=== PATIENT | male | born 1935 | race African-American/Black ===

== ENCOUNTER 2017-04-17 06:17 | Inpatient (IN) | payer OTHER, MEDICARE ==
[~2017-04-17] VITALS: Ht 172.7 cm; Wt 100.0 kg
[2017-04-17] VITALS (12 sets, daily range): BP systolic 121–174; BP diastolic 67–108; PULSE 77–100; RESP 18–20; TEMP 97.6–97.9; O2SAT 90–98
[~2017-04-17 06:17] MED LIST: AMLO10 PO; ASPI1TAB69 PO; CARV3.125 PO; FORM20NE INH; GLIP5TAB8 PO; LATA0.002 EACH EYE; LEVO25TA4 PO; LISI10TA PO; MOME1AER2 INH; PRAV40TA2 PO; THEO300T12 PO; VENTAER INH; VITA10002 PO
[2017-04-17] MEDS ORDERED: ALBU0.63 NEB (06:49)
[2017-04-17] MEDS ORDERED: TRAZ50TA12 PO (06:55)
[2017-04-17] MEDS ORDERED: ALLO100T PO (06:55)
[2017-04-17] MEDS ORDERED: BRIM0.2S4 EACH EYE (06:55)
[2017-04-17] MEDS ORDERED: LIDOCAINE 1%/EPINEPHrine 1:100,000 SOLN 20 ML VIAL ONE (07:44)
[2017-04-17] MEDS ORDERED: MIDAZOLAM HCL 2 MG/2 ML VIAL ONE (07:54)
--- NOTE | 2017-04-17 08:44 | PD.RAD ---
Post CT Procedure Prog Note Pre Procedure Diagnosis: (1) Lung mass Post Procedure Diagnosis: (1) Lung mass Procedure Date: Apr 17, 2017 Supervising Radiologist: Luis Case Anesthesia: Conscious Sedation Plan of Activity Patient to Unit: [facility] Patient Condition: Good See PACS Report for procedural detail/treatment Luis Case MD Apr 17, 2017 08:44
--- NOTE | 2017-04-17 09:05 | RADRPT ---
EXAM DATE/TIME: 04/17/2017 08:17 [facility] COMPARISON: CHEST EXPIRATION ONLY, April 17, 2017, 8:50. INDICATIONS : History of PET positive left upper lobe lung mass with reportedly nondiagnostic biopsy at [facility]. Therefore, patient presents for repeat biopsy attempt. SEDATION TIME: 30 minutes BIOPSY SITE: Left lung MEDICATION(S): 1.) 2.5 mg midazolam (Versed) IV 2.) 125 mcg fentanyl (Sublimaze) IV DEVICE(S): 1.) 18 gauge Soto blunt needle 2.) 20 gauge Temno core biopsy needle MEDICAL HISTORY : Carcinoma, prostate. Hypertension. Emphysema. SURGICAL HISTORY : None. ENCOUNTER: Initial ACUITY: 1 day PAIN SCORE: 0/10 LOCATION: Left chest A total of five core specimen(s) were obtained and sent to the laboratory for pathologic evaluation. PROCEDURE: 1. CT guided lung biopsy. 2. Conscious sedation with continuous EKG and oximetry monitoring. 3. EKG and oximetry remained stable throughout the procedure. Prior to the procedure informed consent was obtained. Any appropriate prior imaging studies were rev iewed. Using automated exposure control and adjustment of the mA and/or kV according to patient size, radiation dose was kept as low as reasonably achievable to obtain optimal diagnostic quality images. DICOM format image data is available electronically for review and comparison. The site was prepped in a sterile fashion. Full sterile technique was used, including cap, mask, lamar rile gloves and gown and a large sterile sheet. Hand hygiene and 2% chlorhexidine and/or betadine/al cohol prep was utilized per protocol for cutaneous antisepsis. The skin and subcutaneous tissues wer e infiltrated with local anesthetic solution. With CT guidance the previously identified target was localized. Biopsy was performed using the [facility] ribed needle as above. In total, five 20 gauge core biopsies were obtained. Adequate hemostasis was o btained with compression at the puncture site. Follow-up CT scan reveals no pneumothorax. However, moderate airspace blood proximal were noted. Ther efore, patient was positioned with left side down for postprocedure recovery. Chest radiographs will be obtained. Conscious sedation was performed with the prescribed dosages and duration as above in the presence of an independent trained radiology nurse to assist in the monitoring of the patient. EKG and oximetry remained stable throughout the procedure. The patient tolerated the procedure well and there were no complications. The patient was sent to Radiology Outpatient Unit in stable condition. CONCLUSION: Uncomplicated CT guided biopsy. Luis Case MD on April 17, 2017 at 9:01 Board Certified Radiologist. This report was verified electronically.
--- NOTE | 2017-04-17 09:06 | RADRPT ---
EXAM DATE/TIME: 04/17/2017 08:50 [facility] COMPARISON: No previous studies available for comparison. INDICATIONS : Left lung biopsy. MEDICAL HISTORY : Hypertension. Chronic obstructive pulmonary disease. Carcinoma, prostate SURGICAL HISTORY : None. ENCOUNTER: Initial ACUITY: 1 day PAIN SCORE: 4/10 LOCATION: Left upper chest FINDINGS: A single frontal expiratory view of the chest was performed. Mild airspace consolidation in the left upper lobe consistent with postprocedural blood products. No evidence of pneumothorax. Mediastinal s tructures are in the midline. The cardio-mediastinal contours and bronchopulmonary markings are unremarkable for an expiratory exam . Osseous structures are intact. CONCLUSION: 1. No significant pneumothorax status post left upper lobe lung mass biopsy. 2. Stable mild left upper lobe airspace consolidation consistent with postprocedural blood products. Luis Case MD on April 17, 2017 at 9:03 Board Certified Radiologist. This report was verified electronically.
[2017-04-17] MEDS: oxyCODONE/ACETAMINOPHEN 5 MG/325 MG TAB PO PRN ×2 (10:10→18:31)
--- NOTE | 2017-04-17 11:42 | RADRPT ---
EXAM DATE/TIME: 04/17/2017 11:06 [facility] COMPARISON: CHEST EXPIRATION ONLY, April 17, 2017, 8:50. INDICATIONS : Post left lung biopsy. MEDICAL HISTORY : Hypertension. Chronic obstructive pulmonary disease. Carcinoma, SURGICAL HISTORY : None. ENCOUNTER: Subsequent ACUITY: 1 day PAIN SCORE: 0/10 LOCATION: Bilateral chest FINDINGS: Upright expiratory view of the chest demonstrates a small left pneumothorax with new small left subcu taneous air along the left chest wall. CONCLUSION: There is a new small left pneumothorax. Hernandez Mcwilliams MD on April 17, 2017 at 11:39 Board Certified Radiologist. This report was verified electronically.
--- NOTE | 2017-04-17 13:53 | RADRPT ---
EXAM DATE/TIME: 04/17/2017 13:36 [facility] COMPARISON: CHEST EXPIRATION ONLY, April 17, 2017, 11:06. INDICATIONS : Post lung biopsy. MEDICAL HISTORY : Hypertension. Chronic obstructive pulmonary disease. Carcinoma. SURGICAL HISTORY : None. ENCOUNTER: Subsequent ACUITY: 1 day PAIN SCORE: 0/10 LOCATION: Bilateral chest FINDINGS: Very subtle interval enlargement of the left apical pneumothorax now measuring 1.7 cm in comparison t o 1.5 cm on prior exam. Subtle subcutaneous emphysema is unchanged. Remainder of exam is stable. CONCLUSION: 1. There is subtle interval enlargement of small left apical pneumothorax. Luis Case MD on April 17, 2017 at 13:50 Board Certified Radiologist. This report was verified electronically.
[2017-04-17] MEDS ORDERED: LORazepam 2 MG/ML VIAL ONE (15:38)
--- NOTE | 2017-04-17 16:59 | RADRPT ---
EXAM DATE/TIME: 04/17/2017 16:43 This report includes an Addendum and supersedes previous reports for this exam. [facility] COMPARISON: CHEST SINGLE AP, April 22, 2015, 9:18. INDICATIONS : Post chest tube attemp, pneumothorax. MEDICAL HISTORY : None. SURGICAL HISTORY : None. ENCOUNTER: Subsequent ACUITY: 1 day PAIN SCORE: 1/10 LOCATION: Left chest FINDINGS: A single view of the chest demonstrates the lungs to be symmetrically aerated without evidence of mas s, infiltrate or effusion. The cardiomediastinal contours are unremarkable. Osseous structures are intact. CONCLUSION: No acute disease. Darin Nuñez Jr., MD on April 17, 2017 at 16:57 Board Certified Radiologist. This report was verified electronically. ADDENDUM: COMPARISON: CHEST EXPIRATION ONLY, April 17, 2017, 13:36. There is a tiny left-sided apical pneumothorax. This is smaller from than the prior study. Darin Nuñez Jr., MD on April 17, 2017 at 17:11 Board Certified Radiologist. This report was verified electronically.
--- NOTE | 2017-04-17 17:08 | RADRPT ---
EXAM DATE/TIME: 04/17/2017 16:52 [facility] COMPARISON : INDICATIONS : Minimally enlarging small left apical pneumothorax status post lung biopsy. Given patient's history o f severe lung disease and enlarging pneumothorax, chest tube placement will be performed. Procedures performed: 1. conscious sedation 2. Fluoroscopic guided attempted chest tube placement DISCUSSION: Monitored moderate conscious sedation was provided for this procedure with continued monitoring of pa tient consciousness and physiologic status provided by interventional radiology nurse throughout the procedure and documented. Patient was placed supine on the angiographic table. Fluoroscopic examination demonstrated a very sub tle left apical pneumothorax. This was then subsequently targeted via a left anterior mid clavicular second costal approach with an 18 gauge needle. Although a very small amount of air was aspirated fol lowing needle placement into the pleural space, a wire could not be adequately advanced into the pleu ral space for safe placement of chest tube. Given the extensive apical bulla, decision was made not t o pursue a more aggressive chest tube placement at this time. Therefore, procedure was terminated. Patient tolerated the procedure well and there were no immediate post procedure consultations. CONCLUSION: 1. Very subtle left apical pneumothorax precluding safe placement of chest tube, as above. Plan: Patient will be admitted for overnight observation with close clinical followup and serial chest radi ographs. Luis Case MD on April 17, 2017 at 17:02 Board Certified Radiologist. This report was verified electronically.
--- NOTE | 2017-04-17 17:18 | HHI.HP ---
[facility] Service [place] [facility] Primary Care Physician Daren Redding MD Admission Diagnosis Diagnoses: (1) Pneumothorax after biopsy Diagnosis: Principal Chief Complaint: Here for biopsy and had pneumothorax Travel History International Travel<30 Days: No Contact w/Intl Traveler <30 Da: No Traveled to Known Affected Are: No History of Present Illness is a 82-year-old male with a past medical history of hypertension, hyperlipidemia, diabetes, COPD, prostate cancer, kidney stones, hypothyroidism, neuropathy, and recently diagnosed lung cancer. He is seen and examined in radiology outpatient unit with son who is at bedside. Patient is resting comfortably in stretcher and appears to be in no acute distress. He is able to move all extremities spontaneously without difficulty, he is awake and alert, although slightly confused regarding what is going on, majority of the information is gathered from son. Son reports that patient has a history of COPD and had a routine chest x-ray done which had an incidental finding of lung nodule. He had a lung biopsy done previously, however not enough cells were collected to properly determine staging per son. Today he was scheduled for CT guided lung biopsy which was successful however after the procedure was completed an x-ray done shortly after revealed a small left pneumothorax. IR was made aware, but will hold off on placing chest tube as chest tube will be placed too close to bleb. Patient will be admitted for monitoring with repeat chest x-ray in the morning. Patient repots some SOB, denies chest pain, no nausea or vomiting. Denies trouble with bowels such as diarrhea or constipation. He also states that his leg swelling is better that it is usually at home. Son states that patient will use motorized scooter for the most part, is on home oxygen 24/. Patient also has a history of chronic left sided and flank pain, son reports this is chronic and that has had workup to try and determine cause, but no clear answer has been identified. He also complains of numbness in his legs related to diabetic neuropathy. Review of Systems Constitutional: DENIES: Diaphoretic episodes, Fatigue Endocrine: DENIES: Heat/cold intolerance, Polydipsia Eyes: DENIES: Blurred vision, Diplopia Ears, nose, mouth, throat: DENIES: Tinnitus, Hearing loss Respiratory: COMPLAINS OF: Cough, Shortness of breath, DENIES: Snoring Cardiovascular: COMPLAINS OF: Lower Extremity Edema, DENIES: Chest pain Gastrointestinal: DENIES: Abdominal pain, Black stools Genitourinary: DENIES: Sexual dysfunction, Urinary frequency Integumentary: DENIES: Abnormal pigmentation, Nail changes Hematologic/lymphatic: DENIES: Bruising, Lymphadenopathy Immunologic/allergic: DENIES: Eczema, Urticaria Neurologic: DENIES: Abnormal gait, Headache, Localized weakness Psychiatric: DENIES: Anxiety, Confusion, Mood changes Except as stated in HPI: all other systems reviewed are Neg Past Family Social History Past Medical History Hypertension Hyperlipidemia Diabetes COPD, uses oxygen at home 2-3L Prostate cancer S/P radiation Kidney stones Hypothyroidism Diabetic neuropathy Lung cancer Past Surgical History Cataracta surgery Back surgery X5 with history of fusion Reported Medications Reported Meds & Active Scripts Active Reported Trazodone (Trazodone HCl) 50 Mg Tab 50 Mg PO HS Brimonidine Opth Drops (Brimonidine Tartrate) 0.2% Soln 1 Drop EACH EYE BID Allopurinol 100 Mg Tab 100 Mg PO DAILY Albuterol Neb (Albuterol Sulfate) 0.63 Mg/3 Ml Neb 0.5 Mg NEB QID NEB PRN Theophylline ER 12 HR (Theophylline) 300 Mg Tab 300 Mg PO TID Pravastatin 40 Mg Tab 40 Mg PO DAILY Vitamin B-12 (Cyanocobalamin) 1,000 Mcg Tab 1,000 Mcg PO DAILY Lisinopril-Hctz 10-12.5 Mg Tab 1 Tab PO DAILY Levothyroxine (Levothyroxine Sodium) 25 Mcg Tab 25 Mcg PO DAILY Latanoprost Opth Drops (Latanoprost) 0.005% Drops 1 Drop EACH EYE HS Refrigerate until opened. 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 (Unverified Allergy, Unknown, itching after arthrogram, 01/10/17) Active Ordered Medications Current Medications Lidocaine/ Epinephrine (Xylocaine-Epi 1%-1:100,000 Inj) 20 ml STK-MED ONCE .ROUTE ; Start 04/17/17 at 07:44; Stop 04/17/17 at 07:45; Status DC Fentanyl Citrate (fentaNYL INJ) 200 mcg STK-MED ONCE .ROUTE Last administered on 04/17/17 08:10; Start 04/17/17 at 07:54; Stop 04/17/17 at 07:55; Status DC Midazolam HCl (Versed Inj) 4 mg STK-MED ONCE .ROUTE Last administered on 08:10; Start 04/17/17 at 07:54; Stop 04/17/17 at 07:55; Status DC Oxycodone/ Acetaminophen (Percocet 5-325 Mg) 1 tab Q4H PRN PO PAIN SCALE 1 TO 10 Last administered on 04/17/17 18:31; Start 04/17/17 at 08:45 Fentanyl Citrate (fentaNYL INJ) 100 mcg STK-MED ONCE .ROUTE Last administered on 04/17/17 15:40; Start 04/17/17 at 15:38; Stop 04/17/17 at 15:39; Status DC Fentanyl Citrate (fentaNYL INJ) 100 mcg STK-MED ONCE .ROUTE ; Start 04/17/17 at 15:38; Stop 04/17/17 at 15:39; Status DC Lorazepam (Ativan Inj) 2 mg STK-MED ONCE .ROUTE Last administered on 15:50; Start 04/17/17 at 15:38; Stop 04/17/17 at 15:39; Status DC Albuterol Sulfate (Proair Hfa Inh) 1 puff Q12HR PRN INH SHORTNESS OF BREATH; Start 04/17/17 at 17:30; Status Cancel Albuterol Sulfate (Albuterol Neb) 0.5 mg QID NEB PRN NEB SHORTNESS OF BREATH; Start 04/17/17 at 17:30 Allopurinol (Zyloprim) 100 mg DAILY PO ; Start 04/18/17 at 09:00 Brimonidine Tartrate (Alphagan 0.2% Opth Soln) 1 drop BID EACH EYE ; Start at 21:00 Cyanocobalamin (Vitamin B12) 1,000 mcg DAILY PO ; Start 04/18/17 at 09:00 Latanoprost (Xalatan 0.005% Opth Soln) 1 drop HS EACH EYE ; Start 04/17/17 at 21:00 Levothyroxine Sodium (Synthroid) 25 mcg DAILY@0600 PO ; Start 04/18/17 at 06:00 Pravastatin Sodium (Pravachol) 40 mg DAILY PO ; Start 04/18/17 at 09:00 Theophylline (Theochron) 300 mg TID PO ; Start 04/17/17 at 18:00 Trazodone HCl (Desyrel) 50 mg HS PO ; Start 04/17/17 at 21:00 Patient Own Medication PT OWN MED: (Formoterol ... TID INH ; Start 04/17/17 at 18:00 Lisinopril (Prinivil) 10 mg DAILY PO ; Start 04/18/17 at 09:00 Patient Own Medication PT OWN MED: (Mometasone 30 Act ... BID INH ; Start 04/17 at 21:00 Dextrose (D50w (Vial) Inj) 50 ml UNSCH PRN IV PUSH HYPOGLYCEMIA-SEE COMMENTS; Start 04/17/17 at 17:45 Glucagon (Glucagon Inj) 1 mg UNSCH PRN OTHER HYPOGLYCEMIA-SEE COMMENTS; Start 04/17/17 at 17:45 Insulin Aspart (NovoLOG SUPPLEMENTAL SCALE) 1 ACHS SLIDING SCALE SQ ; Start at 21:00 Hydrochlorothiazide (Microzide) 12.5 mg DAILY PO ; Start 04/18/17 at 09:00 Family History Mother and father with history of aneurysm Son with renal cancer Social History Tobacco use: quit >10 years ago, was a smoker for 45years per records Alcohol use: denies Illicit drug use: denies Physical Exam Vital Signs Vital Signs Date Time Temp Pulse Resp B/P (MAP) Pulse Ox O2 Delivery O2 Flow Rate FiO2 04/17/17 16:45 20 121/90 (100) 04/17/17 16:30 20 121/90 (100) 93 04/17/17 12:10 100 18 174/108 (130) 04/17/17 11:10 88 20 150/98 (115) 90 04/17/17 10:40 88 20 157/106 (123) 90 04/17/17 10:10 94 18 139/107 (118) 90 04/17/17 09:40 95 158/98 (118) 91 04/17/17 09:10 91 20 139/84 (102) 92 04/17/17 09:10 91 20 134/84 (101) 92 04/17/17 08:55 97.8 89 20 131/98 (109) 90 04/17/17 07:06 93 Nasal Cannula 3.00 04/17/17 06:45 97.9 98 20 145/98 (114) 98 Physical Exam GENERAL: This is a well-nourished, well-developed patient, in no apparent distress. SKIN: No rashes, ecchymoses or lesions. Cool and dry. HEAD: Atraumatic. Normocephalic. EYES: Pupils equal round and reactive. No injection or drainage. ENT: Nose without bleeding, purulent drainage or septal hematoma. Airway patent. NECK: Trachea midline. Supple, nontender. CARDIOVASCULAR: Regular rate and rhythm without murmurs, gallops, or rubs. RESPIRATORY: Clear to auscultation. Breath sounds equal bilaterally. No wheezes , rales, or rhonchi, diminished breath sounds bilaterally. Left upper chest Bandage noted dry and intact. GASTROINTESTINAL: Abdomen soft, non-tender, nondistended. No guarding. MUSCULOSKELETAL: Extremities without clubbing, cyanosis. Trace edema noted on legs and feet, non-pitting. No joint tenderness, effusion, or edema noted. NEUROLOGICAL: Awake and alert, cooperative with some confusion. Motor and sensory grossly within normal limits. Moves all extremities spontaneously. Normal speech. INSIGHT AND JUDGEMENT ARE GOOD MOOD AND BEHAVIOR ARE APPROPRIATE Imaging Last Impressions Consultation 04/17/17 1417 Signed Impressions: Service Date/Time: Monday, April 17, 2017 16:52 - CONCLUSION: 1. Very subtle left apical pneumothorax precluding safe placement of chest tube, as above. Plan: Patient will be admitted for overnight observation with close clinical followup and serial chest radiographs. Luis Case MD Chest X-Ray 04/17/17 1300 Signed Impressions: Service Date/Time: Monday, April 17, 2017 13:36 - CONCLUSION: 1. There is subtle interval enlargement of small left apical pneumothorax. Luis Case MD Lung Biopsy CT 04/17/17 0721 Signed Impressions: Service Date/Time: Monday, April 17, 2017 08:17 - CONCLUSION: Uncomplicated CT guided biopsy. MD Usama Locke VTE Risk Assessment Caprini VTE Risk Assessment: Mod/High Risk (score >= 2) Caprini Risk Assessment Model Point Value = 1 Point Value = 2 Point Value = 3 Point Value = 5 Age 41-60 Minor surgery BMI > 25 kg/m2 Swollen legs Varicose veins or History of unexplained or recurrent spontaneous Oral contraceptives or hormone replacement Sepsis (< 1 month) Serious lung disease, including pneumonia (< 1 month) Abnormal pulmonary function Acute myocardial infarction Congestive heart failure (< 1 month) History of inflammatory bowel disease Medical patient at bed rest Age 61-74 Arthroscopic surgery Major open surgery (> 45 min) Laparoscopic surgery (> 45 min) Malignancy Confined to bed (> 72 hours) Immobilizing plaster cast Central venous access Age >= 75 History of VTE Family history of VTE Factor V Leiden Prothrombin [id number] Lupus anticoagulant Anticardiolipin antibodies Elevated serum homocysteine Heparin-induced thrombocytopenia Other congenital or acquired thrombophilia Stroke (< 1 month) Elective arthroplasty Hip, pelvis, or leg fracture Acute spinal cord injury (< 1 month) Prophylaxis Regimen Total Risk Factor Score Risk Level Prophylaxis Regimen 0-1 Low Early ambulation 2 Moderate Order ONE of the following: *Sequential Compression Device (SCD) *Heparin 5000 units SQ BID 3-4 Higher Order ONE of the following medications: *Heparin 5000 units SQ TID *Enoxaparin/Lovenox 40 mg SQ daily (WT < 150 kg, CrCl > 30 mL/min) *Enoxaparin/Lovenox 30 mg SQ daily (WT < 150 kg, CrCl > 10-29 mL/min) *Enoxaparin/Lovenox 30 mg SQ BID (WT < 150 kg, CrCl > 30 mL/min) AND/OR *Sequential Compression Device (SCD) 5 or more Highest Order ONE of the following medications: *Heparin 5000 units SQ TID (Preferred with Epidurals) *Enoxaparin/Lovenox 40 mg SQ daily (WT < 150 kg, CrCl > 30 mL/min) *Enoxaparin/Lovenox 30 mg SQ daily (WT < 150 kg, CrCl > 10-29 mL/min) *Enoxaparin/Lovenox 30 mg SQ BID (WT < 150 kg, CrCl > 30 mL/min) AND *Sequential Compression Device (SCD) Assessment and Plan Problem List: (1) Pneumothorax after biopsy ICD Code: J95.811 - Postprocedural pneumothorax Status: Acute (2) Lung mass ICD Code: R91.8 - Other nonspecific abnormal finding of lung field Status: Acute Assessment and Plan is a 82-year-old male with a past medical history of hypertension, hyperlipidemia, diabetes, COPD, prostate cancer, kidney stones, hypothyroidism, neuropathy, and recently diagnosed lung cancer. Today he was scheduled for CT guided lung biopsy which was successfully done, however after the procedure was completed an x-ray done shortly after revealed a small left pneumothorax. Interventional radiology was made aware, but will hold off on placing chest tube as chest tube will be placed too close to bleb. Patient will be admitted for monitoring with repeat chest x-ray in the morning. Pneumothorax, following CT guided biopsy - Patient underwent biopsy, chest x-ray followed personally reviewed showing small left pneumothorax with new small left subcutaneous air along chest wall. He and repeat chest x-ray which demonstrated subtle interval enlargement of small left apical pneumothorax. - Patient did not have chest tube placement by IR as placing CT would be risky as CT would be right up against a seen lung bleb. - Patient will be admitted for ongoing monitoring and repeat chest x-ray in the morning to check on pneumothorax. - Will place patient NPO after midnight in case he undergoes procedure. IR will continue to follow patient. - Resume COPD medications. - Pain control, Percocet PO as needed. COPD, on chronic oxygen - Complaints of SOB possibly secondary to COPD along with pneumothorax. - Will resume patients home medications, already on oxygen now. - Continue to monitor for worsening respiratory status Hypertension, chronic, diastolic pressure elevated - Will resume patients home medications - Follow blood pressure trends. Diabetes, chronic - Patient on Glipizide at home, will hold off for now - Accu-Checks with ISS as needed, patient will be NPO after midnight. HLD - Will continue home statin. VTE - SCDs and TEDs for the moment. Discussed with son who is at bedside. The exam, history, and the medical decision-making described in the above note were completed with the assistance of the mid-level provider. I reviewed and agree with the findings presented. I attest that I had a [id number] encounter with the patient on the same day, and personally performed and documented my assessment and findings in the medical record. SHARED VISIT WITH MY WESLEY Code Status full code Discussed Condition With RN, WESLEY, PATIENT AND FAMILY Physician Certification 2 Midnight Certification Type: Admission for Inpatient Services Order for Inpatient Services The services are ordered in accordance with Medicare regulations or non- Medicare payer requirements, as applicable. In the case of services not specified as inpatient-only, they are appropriately provided as inpatient services in accordance with the 2-midnight benchmark. Estimated LOS (days): 2 2 days is the estimated time the patient will need to remain in the hospital, assuming treatment plan goals are met and no additional complications. Post-Hospital Plan: Not yet determined Quique Baker Apr 17, 2017 17:18 Yehuda López DO Apr 17, 2017 19:17
[2017-04-17] MEDS ORDERED: ALBUTEROL SULFATE 90 MCG/ACT HFA 8 GM INHALER INH PRN (17:30)
[2017-04-17] MEDS ORDERED: RESP: ALBUTEROL 0.63 MG/3 ML NEB (PRN) NEB (17:30)
[2017-04-17] MEDS ORDERED: GLUCAGON 1 MG/ML VIAL OTHER PRN (17:45)
[2017-04-17] MEDS ORDERED: DEXTROSE 50% IN WATER 50 ML VIAL(D50) IV PUSH PRN (17:45)
[2017-04-17] MEDS: FORMOTEROL 20 MCG/2 ML INH SCH (18:00)
[2017-04-17] MEDS: THEOPHYLLINE ER 12 HR 300 MG TABCR PO SCH (18:00)
[2017-04-17] MEDS ORDERED: RESP: ALBUTEROL 2.5 MG/IPRATROPIUM 0.5 MG NEB (PRN) NEB (19:30)
[2017-04-17] MEDS: MOMETASONE INH SCH (21:00)
[2017-04-17] MEDS ORDERED: traZODone HCL 50 MG TAB PO SCH (21:00)
[2017-04-17] MEDS ORDERED: LATANOPROST 0.005% OPHT SOLN 2.5 ML BTL EACH EYE SCH (21:00)
[2017-04-17] MEDS: INSULIN ASPART SUPPLEMENTAL SCALE SQ SCH (21:00)
[2017-04-17] MEDS: BRIMONIDINE TARTRATE 0.2% OPHT SOLN 5 ML BTL EACH EYE SCH (22:26)
[2017-04-18] VITALS: BP 116/55; PULSE 74; RESP 20; TEMP 97.8; O2SAT 95
[2017-04-18 00:05] VITALS: O2SAT 95
[2017-04-18] MEDS: oxyCODONE/ACETAMINOPHEN 5 MG/325 MG TAB PO PRN (03:57)
[2017-04-18 04:00] VITALS: BP 141/75; PULSE 83; RESP 20; TEMP 97.8; O2SAT 95
[2017-04-18 04:26] LABS: BASOPHIL % 0.8 % (0.0-2.0); EOSINOPHIL # 0.2 TH/MM3 (0-0.4); EOSINOPHIL % 4.4 % (0.0-4.0); HEMATOCRIT 32.5 % (39.0-51.0); HEMO FLAGS DIFF FINAL; LYMPH % 32.1 % (9.0-44.0); LYMPHOCYTE # 1.3 TH/MM3 (1.0-4.8); MEAN CELL VOLUME 88.3 FL (80.0-100.0); MEAN CORPUSCULAR HEMOGLOBIN 28.6 PG (27.0-34.0); MEAN CORPUSCULAR HGB CONC 32.4 % (32.0-36.0); MONO % 13.1 % (0.0-8.0); NEUT % 49.6 % (16.0-70.0); PLATELET COUNT 191 TH/MM3 (150-450); RED BLOOD COUNT 3.68 MIL/MM3 (4.50-5.90); RED CELL DISTRIBUTION WIDTH 14.3 % (11.6-17.2)
[2017-04-18 04:44] LABS: ANION GAP 8 MEQ/L (5-15); AST (GOT) 18 U/L (15-37); BICARBONATE 29.4 MEQ/L (21.0-32.0); BLOOD UREA NITROGEN 16 MG/DL (7-18); CHLORIDE 105 MEQ/L (98-107); GLOMERULAR FILTRATION RATE 52 ML/MIN (>89); MAGNESIUM 1.7 MG/DL (1.5-2.5); POTASSIUM 4.3 MEQ/L (3.5-5.1); SODIUM (NA) 142 MEQ/L (136-145)
[2017-04-18 04:45] LABS: ALT (GPT) LESS THAN 6 U/L (12-78)
[2017-04-18 04:53] LABS: ALKALINE PHOSPHATASE 55 U/L (45-117); FREE T4 0.98 NG/DL (0.76-1.46); TOTAL BILIRUBIN ADULT 0.5 MG/DL (0.2-1.0)
[2017-04-18] MEDS ORDERED: LEVOTHYROXINE SODIUM 25 MCG TAB PO SCH (06:00)
--- NOTE | 2017-04-18 06:26 | RADRPT ---
EXAM DATE/TIME: 04/18/2017 05:38 [facility] COMPARISON: CHEST SINGLE AP, April 17, 2017, 16:43. INDICATIONS : Short of breath, evaluate for pneumothorax left side MEDICAL HISTORY : Emphysema. Chronic obstructive pulmonary disease. carcinoma prostate SURGICAL HISTORY : lung biopsy ENCOUNTER: Subsequent ACUITY: 2 days PAIN SCORE: 0/10 LOCATION: Left chest FINDINGS: Very small left apical and lateral pneumothorax again noted. Mild parenchymal consolidation seen at t he left apex and left base. There is mild patchy parenchymal opacities throughout the right lung, kike ecially perihilar. No pleural effusion seen. No pneumothorax. CONCLUSION: No significant change. Very small pneumothorax persists on the left and patchy airspace disease on jeremias th sides. Hernandez Steiner MD on April 18, 2017 at 6:23 Board Certified Radiologist. This report was verified electronically.
[2017-04-18 08:00] VITALS: BP 127/64; PULSE 59; RESP 17; TEMP 96.9; O2SAT 94
[2017-04-18] MEDS: INSULIN ASPART SUPPLEMENTAL SCALE SQ SCH (08:00)
[2017-04-18 08:20] VITALS: O2SAT 94
[2017-04-18] MEDS ORDERED: ALLOPURINOL 100 MG TAB PO SCH (09:00)
[2017-04-18] MEDS ORDERED: CYANOCOBALAMIN 1,000 MCG TAB PO SCH (09:00)
[2017-04-18] MEDS ORDERED: HYDROCHLOROTHIAZIDE 12.5 MG CAP PO SCH (09:00)
[2017-04-18] MEDS ORDERED: LISINOPRIL 10 MG TAB PO SCH (09:00)
[2017-04-18] MEDS ORDERED: PRAVASTATIN SOD 40 MG TAB PO SCH (09:00)
[2017-04-18] MEDS: FORMOTEROL 20 MCG/2 ML INH SCH (09:00)
[2017-04-18] MEDS: THEOPHYLLINE ER 12 HR 300 MG TABCR PO SCH (09:17)
[2017-04-18] MEDS: BRIMONIDINE TARTRATE 0.2% OPHT SOLN 5 ML BTL EACH EYE SCH (09:25)
[2017-04-18] MEDS: MOMETASONE INH SCH (09:27)
--- NOTE | 2017-04-18 11:09 | HHI.PR ---
Subjective Remarks Patient reports is feeling well. Breathing is at baseline. Anxious to go home. Cleared by IR for discharge. Objective Vitals Vital Signs Date Time Temp Pulse Resp B/P (MAP) Pulse Ox O2 Delivery O2 Flow Rate FiO2 04/18/17 08:20 94 Nasal Cannula 2.00 04/18/17 08:00 96.9 59 17 127/64 (85) 94 04/18/17 04:00 97.8 83 20 141/75 (97) 95 04/18/17 00:05 95 Nasal Cannula 2.00 04/18/17 00:00 97.8 74 20 116/55 (75) 95 04/17/17 21:00 95 Nasal Cannula 3.00 04/17/17 20:00 97.6 77 20 132/67 (88) 95 04/17/17 18:02 Nasal Cannula 3.00 04/17/17 17:15 87 20 133/87 (102) 92 04/17/17 16:45 20 121/90 (100) 04/17/17 16:30 20 121/90 (100) 93 04/17/17 12:10 100 18 174/108 (130) 04/17/17 11:10 88 20 150/98 (115) 90 I/O 04/17/17 04/17/17 04/17/17 04/18/17 04/18/17 04/18/17 07:00 15:00 23:00 07:00 15:00 23:00 Intake Total 0 ml 240 ml Balance 0 ml 240 ml Intake Oral 0 ml 240 ml # Voids 1 Result Diagram: 04/18/17 0335 04/18/17 0335 Objective Remarks GENERAL: This is a well-nourished, well-developed patient, in no apparent distress. CARDIOVASCULAR: Normal rate and regular rhythm without murmurs, gallops, or rubs. RESPIRATORY: Good respiratory efforts. Diminished breath sounds at the bases otherwise clear to auscultation bilaterally. GASTROINTESTINAL: Abdomen soft, non-tender, non-distended. Normal active bowel sounds MUSCULOSKELETAL: Extremities without cyanosis, or edema. NEURO: Alert & Oriented x4 to person, place, time, situation. Moves all ext x4 PSYCH: Appropriate mood and affect. A/P Problem List: (1) Pneumothorax after biopsy ICD Code: J95.811 - Postprocedural pneumothorax Status: Acute (2) Lung mass ICD Code: R91.8 - Other nonspecific abnormal finding of lung field Status: Acute Assessment and Plan 82-year-old male with a past medical history of hypertension, hyperlipidemia, diabetes, COPD, prostate cancer, kidney stones, hypothyroidism, neuropathy, and recently diagnosed lung cancer. Today he was scheduled for CT guided lung biopsy which was successfully done, however after the procedure was completed an x-ray done shortly after revealed a small left pneumothorax. Interventional radiology was made aware, but will hold off on placing chest tube as chest tube will be placed too close to bleb. Patient was admitted for observation. Repeat x-ray in the morning showed stable lung findings. He was cleared by our for discharge. Patient is to continue his home medications and follow-up with ordering physician for results of biopsy. COPD, on chronic oxygen Hypertension, chronic - Will resume patients home medications - Follow blood pressure trends. Diabetes, chronic -Resume home medications Discharge Planning Discharge home in good condition Follow up with: PCP Activity: Regular as tolerated Diet: Diabetic Meds: Per med rec Alexx Baker MD Apr 18, 2017 11:09
--- NOTE | 2017-04-18 11:20 | HHI.DCPOC ---
Discharge Care Plan Diagnosis: (1) Lung mass (2) Pneumothorax after biopsy Goals to Promote Your Health * To prevent worsening of your condition and complications * To maintain your health at the optimal level Directions to Meet Your Goals Take your medications as prescribed Follow your dietary instruction Follow activity as directed Keep your appointments as scheduled Take your immunizations and boosters as scheduled If your symptoms worsen call your PCP, if no PCP go to Urgent Care Center or Emergency Room Smoking is Dangerous to Your Health. Avoid second hand smoke Call the 24-hour hour crisis hotline for domestic abuse at Alexx Baker MD Apr 18, 2017 11:20
[2017-04-18 12:00] VITALS: BP 149/75; PULSE 95; RESP 20; TEMP 97.4; O2SAT 95
[2017-04-18 12:09] LABS: HEMOGLOBIN A1a 0.9 %; HEMOGLOBIN A1b 1.9 %; HEMOGLOBIN LA1C 1.9 %; HEMOGLOBIN P3 3.9 %
[2017-04-19] MEDS ORDERED: PRAVASTATIN SOD 40 MG TAB PO SCH (21:00)
== END 2017-04-18 15:04 | disposition home or self-care (01) | DRG 200 ==
LOC: HRAD 06:17 → HRIP 06:25 → HRAD 17:49 → N07A 17:53
PROVIDERS: ADMIT Radiology Diagnostic Radiology; ATTEND Family Medicine
PROC: 0BBG3ZX Excision of Left Upper Lung Lobe, Percutaneous Approach, Diagnostic (ICD-10-PCS; principal; 2017-04-17)
DX: J95.811 Postprocedural pneumothorax (principal); C34.12 Malignant neoplasm of upper lobe, left bronchus or lung; E11.22 Type 2 diabetes mellitus with diabetic chronic kidney disease; E11.40 Type 2 diabetes mellitus with diabetic neuropathy, unspecified; J44.9 Chronic obstructive pulmonary disease, unspecified; Z99.81 Dependence on supplemental oxygen; E78.5 Hyperlipidemia, unspecified; E03.9 Hypothyroidism, unspecified; N18.9 Chronic kidney disease, unspecified; M10.9 Gout, unspecified; I25.10 Atherosclerotic heart disease of native coronary artery without angina pectoris; I12.9 Hypertensive chronic kidney disease with stage 1 through stage 4 chronic kidney disease, or unspecified chronic kidney disease; Z85.46 Personal history of malignant neoplasm of prostate; Z92.3 Personal history of irradiation; Z87.891 Personal history of nicotine dependence; Z88.8 Allergy status to other drugs, medicaments and biological substances
CPT/HCPCS: 32405; 32551; 71010; 77012; 80053; 82948; 83036; 83735; 84100; 84439; 84443; 85025; 88305; 88341; 88342; 94150; 99152; 99153; C1729; C1769; J2060; J2250; J3010

== ENCOUNTER 2017-04-20 22:52 | Inpatient (IN) | payer OTHER, MEDICARE ==
[~2017-04-20] VITALS: Ht 172.7 cm; Wt 99.4 kg
[~2017-04-20 22:52] MED LIST changes: +ALBU0.63 NEB; +ALLO100T PO; -AMLO10 PO; -ASPI1TAB69 PO; +BRIM0.2S4 EACH EYE; -CARV3.125 PO; +TRAZ50TA12 PO
[2017-04-20 22:58] VITALS: BP 179/104; PULSE 128; RESP 28; TEMP 97.6; O2SAT 92
[2017-04-20] MEDS ORDERED: ETOMIDATE 20 MG/10 ML VIAL ONE (23:02)
[2017-04-20 23:10] VITALS: O2SAT 100
[2017-04-20] MEDS ORDERED: SODIUM CHLORIDE 0.9% FLUSH 10 ML FLUSH IVF PRN (23:15)
[2017-04-20 23:16] VITALS: BP 151/79; PULSE 111; RESP 18; O2SAT 100
[2017-04-20 23:23] VITALS: BP 135/89; PULSE 119; RESP 33; O2SAT 94
--- NOTE | 2017-04-20 23:25 | PD ---
HPI Chief Complaint: Respiratory Distress Time Seen by Provider: 23:14 Travel History International Travel<30 days: No Contact w/Intl Traveler<30days: No Traveled to known affect area: No History of Present Illness HPI This patient complains of shortness of breath. Duration 3 days. Symptoms are severe. He presents in extremis. Hard for him to talk in full sentences. He has history of COPD. He denies chest pain or fever. He does have some congestion and dry cough. No alleviating factors. He no longer smokes. No exacerbating factors. PFSH Past Medical History Arthritis: No Heart Rhythm Problems: No Cancer: Yes Cardiac Catheterization: No Cardiovascular Problems: Yes High Cholesterol: Yes Congestive Heart Failure: No COPD: Yes (O2 DEPENDENT) Diabetes: Yes Patient Takes Glucophage: No (DOES NOT KNOW ) Diminished Hearing: Yes Endocrine: Yes Genitourinary: Yes Hepatitis: No Hiatal Hernia: No Hypertension: Yes Immune Disorder: No Musculoskeletal: No Neurologic: No Psychiatric: No Reproductive: No Respiratory: Yes Radiation Therapy: Yes (PROSTATE CA) Thyroid Disease: Yes ?: Not Past Surgical History Abdominal Surgery: Yes (GALLBLADDER REMOVAL) AICD: No Body Medical Devices: JUAN LENS IMPLANTS/CATARACTS Cardiac Surgery: No Coronary Artery Bypass Graft: No Ear Surgery: No Endocrine Surgery: No Eye Surgery: Yes (JUAN CATARACT REMOVAL) Genitourinary Surgery: No Gynecologic Surgery: No Joint Replacement: No Oral Surgery: No Pacemaker: No Thoracic Surgery: Yes (LUNG BX) Other Surgery: Yes Social History Alcohol Use: No Tobacco Use: No Substance Use: No Allergies-Medications (Allergen,Severity, Reaction): Coded Allergies: *MDRO Multi-Drug Resistant Organism (Verified Allergy, Unknown, 05/25/16) 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 diatrizoate meglumine (Unverified Allergy, Unknown, itching after arthrogram, 01/10/17) Reported Meds & Prescriptions Reported Meds & Active Scripts Active Reported Trazodone (Trazodone HCl) 50 Mg Tab 50 Mg PO HS Brimonidine Opth Drops (Brimonidine Tartrate) 0.2% Soln 1 Drop EACH EYE BID Allopurinol 100 Mg Tab 100 Mg PO DAILY Albuterol Neb (Albuterol Sulfate) 0.63 Mg/3 Ml Neb 0.5 Mg NEB QID NEB PRN Theophylline ER 12 HR (Theophylline) 300 Mg Tab 300 Mg PO TID Pravastatin 40 Mg Tab 40 Mg PO DAILY Vitamin B-12 (Cyanocobalamin) 1,000 Mcg Tab 1,000 Mcg PO DAILY Lisinopril-Hctz 10-12.5 Mg Tab 1 Tab PO DAILY Levothyroxine (Levothyroxine Sodium) 25 Mcg Tab 25 Mcg PO DAILY Latanoprost Opth Drops (Latanoprost) 0.005% Drops 1 Drop EACH EYE HS Refrigerate until opened. Glipizide 5 Mg Tab 5 Mg PO BIDAC Take 30 minutes before a meal Perforomist Neb (Formoterol Fumarate) 20 Mcg/2 Ml Neb 1 Nebule INH TID Asmanex 30 Act Twisthaler (Mometasone 30 Act Inh) 220 Mcg/Act Inh 2 Puff INH BID Ventolin Hfa 18 GM Inh (Albuterol Sulfate) 90 Mcg/Act Aer 1 Puff INH Q12HR PRN Review of Systems General / Constitutional: No: Fever Eyes: No: Visual changes HENT: Positive: Congestion, No: Headaches Cardiovascular: Positive: Edema, No: Chest Pain or Discomfort Respiratory: Positive: Cough, Shortness of Breath Gastrointestinal: No: Abdominal Pain Genitourinary: No: Dysuria Musculoskeletal: Positive: Edema, No: Pain Skin: No Rash Neurologic: No: Weakness Psychiatric: No: Depression Endocrine: No: Polydipsia Hematologic/Lymphatic: No: Easy Bruising Physical Exam Narrative GENERAL: Well-nourished, well-developed patient in acute respiratory distress. SKIN: Focused skin assessment reveals no rash and nodules. Skin is Warm and dry. HEAD: Atraumatic. Normocephalic. EYES: Pupils equal and round. No scleral icterus. No injection or drainage. ENT: No nasal bleeding or discharge. Mucous membranes pink and moist. NECK: Trachea midline. No JVD. CARDIOVASCULAR: Regular rate and rhythm. No murmur appreciated. RESPIRATORY: Positive accessory muscle use. Diminished breath sounds throughout with some rhonchi and expiratory wheeze. Breath sounds equal bilaterally. GASTROINTESTINAL: Abdomen soft, non-tender, nondistended. Hepatic and splenic margins not palpable. MUSCULOSKELETAL: No obvious deformities. No clubbing. No cyanosis. Symmetric edema the feet and lower legs with thickening of the skin suggesting chronicity NEUROLOGICAL: Awake and alert. No obvious cranial nerve deficits. Motor grossly within normal limits. Normal speech. PSYCHIATRIC: Appropriate mood and affect; insight and judgment normal. Data Data Last Documented VS Vital Signs Date Time Temp Pulse Resp B/P (MAP) Pulse Ox O2 Delivery O2 Flow Rate FiO2 04/21/17 00:30 96 Nasal Cannula 6.00 04/21/17 00:16 115 26 196/97 (130) 04/20/17 23:30 60 04/20/17 22:58 97.6 Orders Orders Etomidate Inj (Amidate Inj) (04/20/17 23:02) Complete Blood Count With Diff (04/20/17 23:15) Basic Metabolic Panel (Bmp) (04/20/17 23:15) Arterial Blood Gas (Abg) (04/20/17 23:15) Influenzae A/B Antigen (04/20/17 23:15) Iv Access Insert/Monitor (04/20/17 23:15) Electrocardiogram (04/20/17 23:15) Ecg Monitoring (04/20/17 23:15) Oximetry (04/20/17 23:15) Oxygen Administration (04/20/17 23:15) Chest, Single Ap (04/20/17 23:15) Sodium Chloride 0.9% Flush (Ns Flush) (04/20/17 23:15) Albuterol-Ipratropium Neb (Duoneb Neb) (04/20/17 23:15) Resp Bipap / Cpap Non Invas Vt (04/20/17 23:15) Lidocaine 1% Inj (50 Ml) (Xylocaine 1% I (04/21/17 00:02) Etomidate Inj (Amidate Inj) (04/21/17 00:06) Chest, Single Ap (04/21/17 ) Admit Order (Ed Use Only) (04/21/17 00:59) Labs Laboratory Tests Test 04/20/17 23:27 04/20/17 23:30 Blood Gas Puncture Site RT RADIAL Blood Gas Patient Temperature 37.0 Blood Gas HCO3 27 mmol/L Blood Gas Base Excess 2.9 mmol/L Blood Gas Oxygen Saturation 85 % Arterial Blood pH 7.42 Arterial Blood Partial Pressure CO2 42 mmHg Arterial Blood Partial Pressure O2 51 mmHG Arterial Blood Oxygen Content 13.5 Vol % Arterial Blood Carboxyhemoglobin 1.1 % Arterial Blood Methemoglobin 0.7 % Blood Gas Hemoglobin 11.3 G/DL Oxygen Delivery Device BIPAP Blood Gas Ventilator Setting 10/5 50%FIO2 Blood Gas Inspired Oxygen 50 % White Blood Count 5.3 TH/MM3 Red Blood Count 3.94 MIL/MM3 Hemoglobin 11.1 GM/DL Hematocrit 34.4 % Mean Corpuscular Volume 87.3 FL Mean Corpuscular Hemoglobin 28.3 PG Mean Corpuscular Hemoglobin Concent 32.4 % Red Cell Distribution Width 14.3 % Platelet Count 238 TH/MM3 Mean Platelet Volume 7.2 FL Neutrophils (%) (Auto) 55.4 % Lymphocytes (%) (Auto) 28.5 % Monocytes (%) (Auto) 11.2 % Eosinophils (%) (Auto) 4.4 % Basophils (%) (Auto) 0.5 % Neutrophils # (Auto) 2.9 TH/MM3 Lymphocytes # (Auto) 1.5 TH/MM3 Monocytes # (Auto) 0.6 TH/MM3 Eosinophils # (Auto) 0.2 TH/MM3 Basophils # (Auto) 0.0 TH/MM3 CBC Comment DIFF FINAL Differential Comment Blood Urea Nitrogen 14 MG/DL Creatinine 1.67 MG/DL Random Glucose 154 MG/DL Calcium Level 9.7 MG/DL Sodium Level 140 MEQ/L Potassium Level 4.2 MEQ/L Chloride Level 104 MEQ/L Carbon Dioxide Level 28.2 MEQ/L Anion Gap 8 MEQ/L Estimat Glomerular Filtration Rate 48 ML/MIN Total Creatine Kinase 453 U/L Troponin I LESS THAN 0.02 NG/ML MDM Medical Decision Making Medical Screen Exam Complete: Yes Emergency Medical Condition: Yes Medical Record Reviewed: Yes Differential Diagnosis Differential diagnosis includes COPD, asthma, pneumonia, bronchitis, CHF Narrative Course I have reviewed the patient's electronic medical record. This patient presents critically ill. He was borderline to emergently intubate but I decided to try BiPAP and see if we can ease the work of breathing that way. IV placed He received IV Solu-Medrol in route by paramedics I gave him a series of 3 nebulizer treatments Placed him on 100% oxygen on BiPAP CBC shows minor anemia of 11.1 hemoglobin Metabolic profile shows minor renal insufficiency creatinine 1.67 I reviewed his EKG shows sinus rhythm without ectopy or ST elevation I reviewed his chest x-ray shows findings consistent with tension pneumothorax. Trachea shifted toward the right. There is a large pneumothorax on the left side Extended cardiac monitoring shows sinus rhythm without ectopy When I saw the pneumothorax I took him off BiPAP and obtain consent for chest tube Procedure note: After patient signed consent, I numbed up an area of the anterior axillary line fifth intercostal space region with 5 cc of 1% lidocaine I gave him 10 mg IV etomidate This achieved a decent level of sedation He was monitored on telemetry and oximetry and placed on oxygen throughout 20 minutes of continual bedside time by the physician I used a scalpel to open up a 2 cm incision and dissected down with finger and Nohelia forceps I punctured into the pleural cavity I placed a chest tube, 28 [place], into the incision and what I initially thought was pleural cavity Turned out later that the chest tube was not in the proper position Strangely enough the patient significant only improved. I think I decompressed the tension pneumothorax when I punctured the Nohelia forceps into the pleural cavity but then the chest tube did not get positioned correctly I reviewed the post procedure x-ray which shows continued pneumothorax By this time director prospect Dr. New was evaluating the patient who was hemodynamically and clinically stable He took the patient to intensive care and is going to place a pigtail catheter Critical Care Narrative Aggregate critical care time was 40 minutes. Time to perform other separately billable procedures was not included in the critical care time. My time did not include minutes spent treating any other patients simultaneously or on activities that did not directly contribute to the patient's treatment. The services I provided to this patient were to treat and/or prevent clinically significant deterioration that could result in: Cardiopulmonary arrest, respiratory collapse, hypoxemic brain injury I provided critical care services requiring my management, as noted below: Chart data review, documentation time, medication orders and management, vital sign assessments/reviewing monitor data, ordering and reviewing lab tests, ordering and interpreting/reviewing x-rays and diagnostic studies, care of the patient and discussion of the patient with the admitting physicians. Diagnosis Primary Impression: Tension pneumothorax Additional Impressions: Acute respiratory failure Qualified Codes: J96.01 - Acute respiratory failure with hypoxia Lung mass Admitting Information Admitting Physician Requests: Quirino Garces MD Apr 20, 2017 23:25
[2017-04-20 23:30] VITALS: O2SAT 93
[2017-04-20 23:39] LABS: AUTOMATED NEUTROPHIL # 2.9 TH/MM3 (1.8-7.7); BASOPHIL % 0.5 % (0.0-2.0); EOSINOPHIL # 0.2 TH/MM3 (0-0.4); EOSINOPHIL % 4.4 % (0.0-4.0); HEMATOCRIT 34.4 % (39.0-51.0); HEMO FLAGS DIFF FINAL; LYMPH % 28.5 % (9.0-44.0); LYMPHOCYTE # 1.5 TH/MM3 (1.0-4.8); MEAN CELL VOLUME 87.3 FL (80.0-100.0); MEAN CORPUSCULAR HEMOGLOBIN 28.3 PG (27.0-34.0); MEAN CORPUSCULAR HGB CONC 32.4 % (32.0-36.0); MONO % 11.2 % (0.0-8.0); NEUT % 55.4 % (16.0-70.0); PLATELET COUNT 238 TH/MM3 (150-450); RED BLOOD COUNT 3.94 MIL/MM3 (4.50-5.90); RED CELL DISTRIBUTION WIDTH 14.3 % (11.6-17.2); WHITE BLOOD COUNT 5.3 TH/MM3 (4.0-11.0)
[2017-04-20] MEDS: RESP: ALBUTEROL 2.5 MG/IPRATROPIUM 0.5 MG NEB (SCH) INH ×2 (23:39→23:40)
[2017-04-20 23:55] LABS: BLOOD GAS BASE EXCESS 2.9 mmol/L (-2-2); BLOOD GAS CARBOXYHEMOGLOBIN 1.1 % (0-4); BLOOD GAS HCO3 27 mmol/L (22-26); BLOOD GAS METHEMOGLOBIN 0.7 % (0-2); BLOOD GAS O2 HGB SATURATION 85 % (90-100); BLOOD GAS OXYGEN CONTENT 13.5 Vol % (12.0-20.0); BLOOD GAS PCO2 42 mmHg (38-42); BLOOD GAS PO2 51 mmHG (61-120); BLOOD GAS TOTAL HGB 11.3 G/DL (12.0-16.0)
[2017-04-20 23:56] LABS: CRITICAL VALUE YES; OXYGEN DEVICE BIPAP
[2017-04-20 23:57] LABS: DRAW SITE RT RADIAL; FIO2 50 %; NUMBER OF ARTERIAL PUNCTURES 1; STAT YES; ULNAR PULSE PRESENT
--- NOTE | 2017-04-20 23:58 | RADRPT ---
EXAM DATE/TIME: 04/20/2017 23:38 [facility] COMPARISON: CHEST SINGLE AP, April 18, 2017, 5:38. INDICATIONS : Shortness of breath MEDICAL HISTORY : Diabetes mellitus type II. Chronic obstructive pulmonary disease. Hypertension. Prostate Cancer SURGICAL HISTORY : Cholecystectomy. ENCOUNTER: Initial ACUITY: 1 day PAIN SCORE: 7/10 LOCATION: Bilateral chest FINDINGS: A single AP semierect view of the chest was obtained and demonstrates a moderate to large left pneumo thorax with large apical component measuring up to we 7 cm. This extends along the lateral aspect of the lung to the lung base. There is questionable mild mediastinal shift to the right. The heart size remains within normal limits. There are no confluent infiltrates or effusions. The bony thorax is int act in appearance. CONCLUSION: Moderate to large left pneumothorax with questionable mediastinal shift to the right. These findings were discussed with Dr. Tucker at 1154 hrs.. Maxx Melchor MD on April 20, 2017 at 23:52 Board Certified Radiologist. This report was verified electronically.
[2017-04-21] VITALS (26 sets, daily range): BP systolic 131–198; BP diastolic 60–108; PULSE 66–117; RESP 12–35; TEMP 97.1–98.6; O2SAT 93–100
[2017-04-21] MEDS ORDERED: LIDOCAINE HCL 1% 50 ML VIAL ONE (00:02)
[2017-04-21 00:03] LABS: BICARBONATE 28.2 MEQ/L (21.0-32.0)
[2017-04-21] MEDS ORDERED: ETOMIDATE 40 MG/20 ML VIAL ONE (00:06)
[2017-04-21 00:09] LABS: POTASSIUM 4.2 MEQ/L (3.5-5.1)
--- NOTE | 2017-04-21 00:44 | RADRPT ---
EXAM DATE/TIME: 04/21/2017 00:29 [facility] COMPARISON: CHEST SINGLE AP, April 20, 2017, 23:38. INDICATIONS : Left pneumothorax status post chest tube placement MEDICAL HISTORY : Diabetes mellitus type II. Chronic obstructive pulmonary disease. Hypertensio n. Prostate Cancer SURGICAL HISTORY : Cholecystectomy. ENCOUNTER: Subsequent ACUITY: 1 day PAIN SCORE: 7/10 LOCATION: Bilateral chest FINDINGS: A single AP semierect view of the chest was obtained and demonstrates interval placement of left-side d chest tube with the tip ejected along the left lateral mid chest wall. A moderate size pneumothorax remains which appears slightly smaller than on the prior exam. The apical component measures up to a pproximately 6 cm and there is residual smaller lateral component and basal component. There is quest ionable mild mediastinal shift remaining to the right with mild increased density in the right lung. The heart size remains at the upper limits of normal. The bony thorax is intact. CONCLUSION: 1. Interval placement of left-sided chest tube with the tip along the lateral chest wall. 2. There has been only a small decrease in the size of the left pneumothorax with moderate residual. Maxx Melchor MD on April 21, 2017 at 0:40 Board Certified Radiologist. This report was verified electronically.
[2017-04-21] MEDS ORDERED: CHLORHEXIDINE GLUCONATE 2 % 1 PACK (2 CLOTHS) TOP PRN (01:15)
[2017-04-21] MEDS ORDERED: oxyCODONE/ACETAMINOPHEN 5 MG/325 MG TAB PO ONE (01:15)
[2017-04-21] MEDS ORDERED: methylPREDNISolone SOD SUCC 125 MG/2 ML VIAL IV PUSH ONE (01:15)
[2017-04-21] MEDS ORDERED: MISCELLANEOUS NURSING INFORMATION XX SCH (01:15)
[2017-04-21] MEDS ORDERED: MORPHINE SULFATE 4 MG/ML INJ IV PUSH PRN (01:15)
[2017-04-21] MEDS ORDERED: SODIUM CHLORIDE 0.9% FLUSH 10 ML FLUSH IV FLUSH PRN (01:15)
--- NOTE | 2017-04-21 02:09 | HHI.HP ---
HPI Service Critical Care Medicine Primary Care Physician Daren Redding MD Admission Diagnosis tension PTX, acute resp failure Diagnosis: Travel History International Travel<30 Days: No Contact w/Intl Traveler <30 Da: No Traveled to Known Affected Are: No History of Present Illness History of Present Illness is a 82-year-old male with a past medical history of hypertension, hyperlipidemia, diabetes, COPD, prostate cancer, kidney stones, hypothyroidism, neuropathy, and recently diagnosed lung cancer. Patient has a history of COPD and had a routine chest x-ray done which had an incidental finding of lung nodule. He had a lung biopsy done previously, however not enough cells were collected to properly determine staging per son. Patient had a repeat lung biopsy on 04/17 however after the procedure was completed an x-ray done shortly after revealed a small left pneumothorax. IR was made aware, but held off on placing chest tube due to concern for blebs. He was admitted by the hospitalist service at that time and was subsequently discharged home. Patient uses 2-3 L O2 nasal cannula at home. Patient presented back to the ER on 04/20 night with worsening shortness of breath and a chest x-ray revealed a large left pneumothorax for which a 20 Slovak chest tube was placed by ER physician with initial air leak with subsequently stopped with improvement in patient's respiratory status and O2 sats. He was weaned down from a nonrebreather to 6 L nasal cannula however postprocedure chest x-ray still shows residual pneumothorax on the right with chest tube tip appearing to be inside pleural cavity. Patient was accepted for admission by critical care medicine service and I evaluated the patient while he was in the ER. He states that his breathing has improved somewhat however he is still short of breath. He was on 6 L nasal cannula at the time of my evaluation and could speak in complete sentences. Patient also has a history of chronic left sided flank pain, son reports this is chronic and that has had workup to try and determine cause, but no clear answer has been identified. He also complains of numbness in his legs related to diabetic neuropathy. Review of Systems Constitutional: DENIES: Diaphoretic episodes, Fatigue Endocrine: DENIES: Heat/cold intolerance, Polydipsia Eyes: DENIES: Blurred vision, Diplopia Ears, nose, mouth, throat: DENIES: Tinnitus, Hearing loss Respiratory: COMPLAINS OF: Cough, Shortness of breath, DENIES: Snoring Cardiovascular: COMPLAINS OF: Lower Extremity Edema, DENIES: Chest pain Gastrointestinal: DENIES: Abdominal pain, Black stools Genitourinary: DENIES: Sexual dysfunction, Urinary frequency Integumentary: DENIES: Abnormal pigmentation, Nail changes Hematologic/lymphatic: DENIES: Bruising, Lymphadenopathy Immunologic/allergic: DENIES: Eczema, Urticaria Neurologic: DENIES: Abnormal gait, Headache, Localized weakness Psychiatric: DENIES: Anxiety, Confusion, Mood changes Except as stated in HPI: all other systems reviewed are Neg Past Family Social History Past Medical History Hypertension Hyperlipidemia Diabetes COPD, uses oxygen at home 2-3L Prostate cancer S/P radiation Kidney stones Hypothyroidism Diabetic neuropathy Lung cancer Past Surgical History Cataracta surgery Back surgery X5 with history of fusion Reported Medications Reported Meds & Active Scripts Active Reported Trazodone (Trazodone HCl) 50 Mg Tab 50 Mg PO HS Brimonidine Opth Drops (Brimonidine Tartrate) 0.2% Soln 1 Drop EACH EYE BID Allopurinol 100 Mg Tab 100 Mg PO DAILY Albuterol Neb (Albuterol Sulfate) 0.63 Mg/3 Ml Neb 0.5 Mg NEB QID NEB PRN Theophylline ER 12 HR (Theophylline) 300 Mg Tab 300 Mg PO TID Pravastatin 40 Mg Tab 40 Mg PO DAILY Vitamin B-12 (Cyanocobalamin) 1,000 Mcg Tab 1,000 Mcg PO DAILY Lisinopril-Hctz 10-12.5 Mg Tab 1 Tab PO DAILY Levothyroxine (Levothyroxine Sodium) 25 Mcg Tab 25 Mcg PO DAILY Latanoprost Opth Drops (Latanoprost) 0.005% Drops 1 Drop EACH EYE HS Refrigerate until opened. 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 (Unverified Allergy, Unknown, itching after arthrogram, 01/10/17) Active Ordered Medications Family History Mother and father with history of aneurysm Son with renal cancer Social History Tobacco use: quit >10 years ago, was a smoker for 45years per records Alcohol use: denies Illicit drug use: denies Physical Exam Vital Signs Vital Signs Date Time Temp Pulse Resp B/P (MAP) Pulse Ox O2 Delivery O2 Flow Rate FiO2 04/21/17 01:20 117 22 168/88 (114) 93 Nasal Cannula 6.00 04/21/17 00:30 96 Nasal Cannula 6.00 04/21/17 00:16 115 26 196/97 (130) 100 Non-Rebreather 04/21/17 00:12 194/97 (129) 04/21/17 00:06 115 28 99 Non-Rebreather 15.00 04/20/17 23:30 93 BiPAP 60 04/20/17 23:23 119 33 135/89 (104) 94 BiPAP 50 04/20/17 23:23 93 BiPAP 50 04/20/17 23:23 94 BiPAP 50 04/20/17 23:16 111 18 151/79 (103) 100 BiPAP 04/20/17 23:10 100 BiPAP 100 04/20/17 23:10 100 100 04/20/17 23:03 26 97 Non-Rebreather 15.00 04/20/17 22:58 97.6 128 28 179/104 (129) 92 Physical Exam HEENT/Neuro: Pallor present, No icterus, tongue moist, WILEY, Awake alert oriented 3, nonfocal grossly, moving all 4 extremities Neck: No JVD Chest/pulmonary: Left-sided chest tube in place, no air leak noted. Air entry decreased over left lung field, scattered rhonchi, no wheezing. Cardiovascular: S1-S2 regular no gallop or murmur GI/abdomen: Soft, nontender, bowel sounds present Extremities: Warm bilaterally, bilateral edema with hyperpigmentation over legs. Laboratory Laboratory Tests Test 04/20/17 23:27 04/20/17 23:30 Blood Gas Puncture Site RT RADIAL Blood Gas Patient Temperature 37.0 Blood Gas HCO3 27 Blood Gas Base Excess 2.9 Blood Gas Oxygen Saturation 85 Arterial Blood pH 7.42 Arterial Blood Partial Pressure CO2 42 Arterial Blood Partial Pressure O2 51 Arterial Blood Oxygen Content 13.5 Arterial Blood Carboxyhemoglobin 1.1 Arterial Blood Methemoglobin 0.7 Blood Gas Hemoglobin 11.3 Oxygen Delivery Device BIPAP Blood Gas Ventilator Setting 10/5 50%FIO2 Blood Gas Inspired Oxygen 50 White Blood Count 5.3 Red Blood Count 3.94 Hemoglobin 11.1 Hematocrit 34.4 Mean Corpuscular Volume 87.3 Mean Corpuscular Hemoglobin 28.3 Mean Corpuscular Hemoglobin Concent 32.4 Red Cell Distribution Width 14.3 Platelet Count 238 Mean Platelet Volume 7.2 Neutrophils (%) (Auto) 55.4 Lymphocytes (%) (Auto) 28.5 Monocytes (%) (Auto) 11.2 Eosinophils (%) (Auto) 4.4 Basophils (%) (Auto) 0.5 Neutrophils # (Auto) 2.9 Lymphocytes # (Auto) 1.5 Monocytes # (Auto) 0.6 Eosinophils # (Auto) 0.2 Basophils # (Auto) 0.0 CBC Comment DIFF FINAL Differential Comment Blood Urea Nitrogen 14 Creatinine 1.67 Random Glucose 154 Calcium Level 9.7 Sodium Level 140 Potassium Level 4.2 Chloride Level 104 Carbon Dioxide Level 28.2 Anion Gap 8 Estimat Glomerular Filtration Rate 48 Result Diagram: 04/20/17 23304/20/17 2330 Course Last Impressions Chest X-Ray 04/21/17 0000 Signed Impressions: Service Date/Time: Friday, April 21, 2017 00:29 - CONCLUSION: 1. Interval placement of left-sided chest tube with the tip along the lateral chest wall. 2. There has been only a small decrease in the size of the left pneumothorax with moderate residual. MD Noé Whittakeri VTE Risk Assessment Caprini VTE Risk Assessment: Mod/High Risk (score >= 2) Caprini Risk Assessment Model Point Value = 1 Point Value = 2 Point Value = 3 Point Value = 5 Age 41-60 Minor surgery BMI > 25 kg/m2 Swollen legs Varicose veins or History of unexplained or recurrent spontaneous Oral contraceptives or hormone replacement Sepsis (< 1 month) Serious lung disease, including pneumonia (< 1 month) Abnormal pulmonary function Acute myocardial infarction Congestive heart failure (< 1 month) History of inflammatory bowel disease Medical patient at bed rest Age 61-74 Arthroscopic surgery Major open surgery (> 45 min) Laparoscopic surgery (> 45 min) Malignancy Confined to bed (> 72 hours) Immobilizing plaster cast Central venous access Age >= 75 History of VTE Family history of VTE Factor V Leiden Prothrombin [id number] Lupus anticoagulant Anticardiolipin antibodies Elevated serum homocysteine Heparin-induced thrombocytopenia Other congenital or acquired thrombophilia Stroke (< 1 month) Elective arthroplasty Hip, pelvis, or leg fracture Acute spinal cord injury (< 1 month) Prophylaxis Regimen Total Risk Factor Score Risk Level Prophylaxis Regimen 0-1 Low Early ambulation 2 Moderate Order ONE of the following: *Sequential Compression Device (SCD) *Heparin 5000 units SQ BID 3-4 Higher Order ONE of the following medications: *Heparin 5000 units SQ TID *Enoxaparin/Lovenox 40 mg SQ daily (WT < 150 kg, CrCl > 30 mL/min) *Enoxaparin/Lovenox 30 mg SQ daily (WT < 150 kg, CrCl > 10-29 mL/min) *Enoxaparin/Lovenox 30 mg SQ BID (WT < 150 kg, CrCl > 30 mL/min) AND/OR *Sequential Compression Device (SCD) 5 or more Highest Order ONE of the following medications: *Heparin 5000 units SQ TID (Preferred with Epidurals) *Enoxaparin/Lovenox 40 mg SQ daily (WT < 150 kg, CrCl > 30 mL/min) *Enoxaparin/Lovenox 30 mg SQ daily (WT < 150 kg, CrCl > 10-29 mL/min) *Enoxaparin/Lovenox 30 mg SQ BID (WT < 150 kg, CrCl > 30 mL/min) AND *Sequential Compression Device (SCD) Assessment and Plan Assessment and Plan 82-year-old male with: Acute on chronic respiratory failure Left pneumothorax following lung biopsy status post left-sided chest tube placement COPD with possible COPD exacerbation CAD Lung cancer Plan: Neuro: Follow neuro status. Currently protecting airway. Cardiovascular: IV hydration, watch for hypotension. Pulmonary: Continue supplemental O2 via nasal cannula. Left-sided chest tube in place, will get CT chest for further evaluation of pneumothorax and possible adhesions. May require a second chest tube placement if pneumothorax not improving possibly with IR under CT guidance if patient has adhesions and large blebs. GI/liver: If respiratory status permits, advance by mouth diet Renal/ IV hydration, strict intake output, monitor and replete electrolytes, follow BUN/creatinine. ID: Holding off on antibiotics at this time. Endocrine Solu-Medrol IV, SSI for glycemic control Heme follow CBC Prophylaxis: Pepcid/SCDs/heparin. Time spent on critical care excluding procedures 35 minutes Kashif New MD Apr 21, 2017 02:09
[2017-04-21 02:20] LABS: CREATINE KINASE 453 U/L (39-308)
[2017-04-21] MEDS: CHLORHEXIDINE GLUCONATE 2 % 1 PACK (2 CLOTHS) TOP SCH (02:22)
[2017-04-21] MEDS: SODIUM CHLOR 0.9% 1000 ML INJ 1,000 ML IV SCH ×2 (02:22→15:41)
--- NOTE | 2017-04-21 02:31 | RADRPT ---
EXAM DATE/TIME: 04/21/2017 01:50 [facility] COMPARISON: CT PULMONARY ANGIOGRAM, April 22, 2015, 10:47. CHEST SINGLE AP, April 21, 2017, 0:29. INDICATIONS : Shortness of breath. Left side pneumothorax. Evaluate for adhesions. RADIATION DOSE: 7.19 CTDIvol (mGy) MEDICAL HISTORY : Hypertension. Chronic obstructive pulmonary disease. Carcinoma, prostate. SURGICAL HISTORY : Left chest tube. Left lung biopsy. ENCOUNTER: Initial ACUITY: 1 day PAIN SCALE: 10/10 LOCATION: Left chest TECHNIQUE: Volumetric scanning of the chest was performed. Using automated exposure control and adjustment of t he mA and/or kV according to patient size, radiation dose was kept as low as reasonably achievable to obtain optimal diagnostic quality images. DICOM format image data is available electronically for r eview and comparison. Follow-up recommendations for detected pulmonary nodules are based at a minimum on nodule size and pa tient risk factors according to Fleischner Society Guidelines. FINDINGS: LUNGS: There is a moderate to large size left pneumothorax with mediastinal shift to the right. This is dottie lar in appearance to the prior CT. The pneumothorax extends from the lung apex to the lung base. Ther e is a left-sided chest tube in place with the tip along the outer left lateral chest wall. There is a spiculated mass in the left upper lobe. PLEURAE: There is no pleural thickening or pleural effusion. MEDIASTINUM: The heart and great vessels demonstrate no acute abnormality. There is no mediastinal or hilar lymph adenopathy. AXILLAE: Within normal limits. No lymphadenopathy. MUSCULOSKELETAL: Within normal limits for patient age. MISCELLANEOUS: The visualized upper abdominal organs demonstrate no acute abnormality. CONCLUSION: 1. The left-sided chest tube lies outside the thorax with the tip along the outer mid ribs. 2. Moderate to large left pneumothorax with mediastinal shift to the right. There is volume loss in t he right hemithorax compared to the left however this is similar to on the prior CT. 3. Spiculated mass in the left upper lobe with underlying emphysema and scarring. 4. Small left effusion. These findings were called to Dr. Tucker in the emergency room immediately after the study was perfo rmed. Maxx Melchor MD on April 21, 2017 at 2:20 Board Certified Radiologist. This report was verified electronically.
[2017-04-21 02:32] LABS: CKMB 1.3 NG/ML (0.5-3.6)
--- NOTE | 2017-04-21 03:18 | PD.PROCEDR ---
Procedure Note Procedure Procedure: Pigtail catheter placement site: Left pleural cavity Preop diagnosis: Left pneumothorax Postop diagnosis: Same Informed consent: Obtained from patient and documented on chart. Anesthesia used: 1% lidocaine for local infiltration anesthesia Procedure: After sterile prepping and draping using 1% lidocaine for local infiltration anesthesia, introducer needle was used to enter Left pleural cavity between the third and fourth intercostal space just lateral to midclavicular line. Pleural cavity was entered as evidenced by return of air bubbles. A guidewire was passed through the needle without any resistance following which needle was removed. 10 [place] pigtail catheter was advanced over the guidewire into the right pleural cavity following which guidewire and stiffener were removed. Pigtail catheter was connected to Pleur-evac VAC with a connector. Pigtail catheter was sutured in place as well as secured with stayfix. Postprocedure chest x-ray was ordered and was pending at the time of this dictation. It will be reviewed when available. Patient tolerated procedure well with no immediate complications noted. Kashif New MD Apr 21, 2017 03:18
[2017-04-21] MEDS: RESP: ALBUTEROL 2.5 MG/IPRATROPIUM 0.5 MG NEB (SCH) NEB ×6 (03:25→23:23)
--- NOTE | 2017-04-21 04:45 | RADRPT ---
EXAM DATE/TIME: 04/21/2017 03:16 [facility] COMPARISON: CHEST SINGLE AP, April 17, 2017, 16:43. CHEST SINGLE AP, April 21, 2017, 0:29. INDICATIONS : Evaluate left side chest tube placement MEDICAL HISTORY : Diabetes mellitus type II. Chronic obstructive pulmonary disease. Hypertension. Prostate cancer SURGICAL HISTORY : Cholecystectomy. ENCOUNTER: Subsequent ACUITY: 1 day PAIN SCORE: 7/10 LOCATION: Bilateral chest Left side FINDINGS: A single AP semierect view of the chest was obtained and demonstrates interval removal of the previou sly noted large bore chest tube and placement of small bore chest tube with the pigtail projected ove r the upper lobe. The pneumothorax is no longer visualized. There is a small amount of subcutaneous e mphysema. The heart size is at the upper limits of normal. Atherosclerotic changes noted in the aorta . CONCLUSION: Exchange of the previously noted large bore chest tube for a small bore chest with re expansion of the left long and no definite residual pneumothorax. Maxx Melchor MD on April 21, 2017 at 4:42 Board Certified Radiologist. This report was verified electronically.
[2017-04-21] MEDS: LEVOTHYROXINE SODIUM 25 MCG TAB PO SCH (06:08)
[2017-04-21] MEDS: LABETALOL HCL 100 MG/20 ML VIAL IV PUSH PRN ×4 (06:08→20:12)
[2017-04-21] MEDS: ACETAMINOPHEN/HYDROcodone 325 MG/5 MG TAB PO PRN ×2 (06:11→13:48)
--- NOTE | 2017-04-21 07:46 | RADRPT ---
EXAM DATE/TIME: 04/21/2017 07:17 [facility] COMPARISON: CT THORAX W/O CONTRAST, April 21, 2017, 1:50. CHEST SINGLE AP, April 20, 2017, 23:38. CHEST S SUZIE AP, April 21, 2017, 0:29. CHEST SINGLE AP, April 21, 2017, 3:16. INDICATIONS : Follow up left pneumothorax. MEDICAL HISTORY : Diabetes mellitus type II. Chronic obstructive pulmonary disease. Hypertension. Prostate cancer. SURGICAL HISTORY : Cholecystectomy. ENCOUNTER: Subsequent ACUITY: 2 days PAIN SCORE: 5/10 LOCATION: Left chest FINDINGS: Stable left apical chest tube. No significant residual pneumothorax. Minimal left basilar airspace di sease, likely atelectasis. Biopsied mass in the left upper lobe is not as well demonstrated. Cardiome diastinal contours are stable. Remainder of exam is unchanged. CONCLUSION: 1. Stable left apical chest tube with no significant residual pneumothorax. 2. Minimal left basilar atelectasis. 3. Left upper lobe mass not as well demonstrated on today's radiograph. Luis Case MD on April 21, 2017 at 7:41 Board Certified Radiologist. This report was verified electronically.
[2017-04-21] MEDS: BRIMONIDINE TARTRATE 0.2% OPHT SOLN 5 ML BTL EACH EYE SCH ×2 (07:50→21:19)
[2017-04-21] MEDS: CYANOCOBALAMIN 1,000 MCG TAB PO SCH (07:51)
[2017-04-21] MEDS: HYDROCHLOROTHIAZIDE 25 MG TAB PO SCH (07:51)
[2017-04-21] MEDS: ALLOPURINOL 100 MG TAB PO SCH (07:52)
[2017-04-21] MEDS: PRAVASTATIN SOD 40 MG TAB PO SCH (07:52)
[2017-04-21] MEDS: LISINOPRIL 10 MG TAB PO SCH (07:52)
[2017-04-21] MEDS: SODIUM CHLORIDE 0.9% FLUSH 10 ML FLUSH IV FLUSH SCH ×2 (07:53→21:18)
[2017-04-21] MEDS: methylPREDNISolone SOD SUCC 40 MG/1 ML VIAL IV PUSH SCH ×2 (07:53→21:18)
[2017-04-21] MEDS: CHLORHEXIDINE 0.12% (ORAL KIT) 15 ML CUP MT SCH ×2 (07:54→20:00)
[2017-04-21] MEDS: INSULIN ASPART SUPPLEMENTAL SCALE SQ SCH ×4 (08:00→21:00)
[2017-04-21 08:31] LABS: CREATINE KINASE 419 U/L (39-308)
[2017-04-21 08:43] LABS: CKMB 2.1 NG/ML (0.5-3.6)
[2017-04-21] MEDS ORDERED: FAMOTIDINE 20 MG/2 ML VIAL IV PUSH SCH (09:00)
[2017-04-21] MEDS ORDERED: MOMETASONE INH SCH (09:00)
[2017-04-21] MEDS ORDERED: NON-FORMULARY DRUG (Lisinopril-Hctz 1 TAB) PO SCH (09:00)
[2017-04-21] MEDS ORDERED: FORMOTEROL INH SCH (09:00)
[2017-04-21] MEDS: THEOPHYLLINE ER 12 HR 300 MG TABCR PO SCH ×3 (10:37→16:54)
[2017-04-21] MEDS: METOPROLOL TARTRATE 50 MG TAB PO SCH ×2 (10:56→21:16)
[2017-04-21 12:53] LABS: AUTOMATED NEUTROPHIL # 4.8 TH/MM3 (1.8-7.7); BASOPHIL % 0.1 % (0.0-2.0); HEMATOCRIT 37.9 % (39.0-51.0); HEMO FLAGS DIFF FINAL; LYMPH % 8.9 % (9.0-44.0); LYMPHOCYTE # 0.5 TH/MM3 (1.0-4.8); MEAN CELL VOLUME 87.8 FL (80.0-100.0); MEAN CORPUSCULAR HEMOGLOBIN 28.3 PG (27.0-34.0); MEAN CORPUSCULAR HGB CONC 32.2 % (32.0-36.0); MONO % 1.9 % (0.0-8.0); NEUT % 89.1 % (16.0-70.0); PLATELET COUNT 251 TH/MM3 (150-450); RED BLOOD COUNT 4.32 MIL/MM3 (4.50-5.90); RED CELL DISTRIBUTION WIDTH 14.1 % (11.6-17.2); WHITE BLOOD COUNT 5.4 TH/MM3 (4.0-11.0)
[2017-04-21 13:13] LABS: BICARBONATE 26.8 MEQ/L (21.0-32.0); MAGNESIUM 1.7 MG/DL (1.5-2.5); POTASSIUM 4.9 MEQ/L (3.5-5.1)
--- NOTE | 2017-04-21 13:16 | EKG ---
Date Performed: 04/20/2017 Time Performed: 23:29:03 PTAGE: 82 years EKG: SINUS TACHYCARDIA LOW QRS VOLTAGE IN EXTREMITY LEADS NONSPECIFIC T-WAVE ABNORMALITY. Since previous tracing, no significant change noted ABNORMAL RHYTHM ECG PREVIOUS TRACING : 05/25/2016 10.18 DOCTOR: Rajesh Merino Interpretating Date/Time 04/21/2017 13:13:59
--- NOTE | 2017-04-21 14:35 | MB ---
cc: KRISTINE DICKINSON MD DATE OF CONSULTATION: 04/21/2017 DATE OF : 1935 CHIEF COMPLAINT: Non-small cell lung cancer. HISTORY OF PRESENT ILLNESS: Mr. Arriaza is a very pleasant 82 year old gentleman with history of chronic kidney disease, chronic obstructive pulmonary disease on home oxygen. Coronary artery disease, hyperlipidemia, hypertension, type 2 diabetes mellitus who was admitted to the hospital for evaluation of and management of a pneumothorax. He established care in oncology clinic on March 30, 2017. He was found to have an abnormal lung lesion in the left upper lobe that was found on chest x- ray that he had due to abdominal pain. A CT scan chest done January 17, 2017 showed a 2.5 cm left upper lobe lung mass. CT of the abdomen and pelvis with no acute findings. On PET CT done on February 02, 2017 showed Saphenous vein graft uptake in the left posterior nasal pharyngeal wall, asymptomatic with ICD max of 7.3. The chest shows a spiculated mass in the posterior segment of the left upper lobe measuring 1.5 x 2.8 cm, which is moderately hypermetabolic. He had a CT guided needle biopsy preformed at [facility] on February 28, 2017 with pathology returning suspicious for squamous cell carcinoma however, due to scant tissue was nondiagnostic. He underwent a CT guided biopsy at this institution on April 17, 2017. 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 He was admitted to the hospital on April 21, 2017. He had a chest tube placed with improvement in respiratory states and o2 saturations. He did require placement of a second chest tube. He reports that his breathing is much improved, he has good support from his family including his two sons and his niece who is at bedside. PAST MEDICAL HISTORY: 1. Hypertension 2. Hyperlipidemia 3. Diabetes mellitus type 2. 4. Chronic obstructive pulmonary disease on home oxygen. 5. History of prostate cancer. Treated with radiation alone approximately four years ago. 6. Kidney stones. 7. Hypothyroidism. 8. Non-small cell lung cancer. PAST SURGICAL HISTORY: 1. Cataract surgery. 2. Multiple back surgeries. FAMILY HISTORY: One of his sons has a history of renal cell cancer. SOCIAL HISTORY: Former smoker, occasional alcohol, good support system. ALLERGIES NO KNOWN DRUG ALLERGIES HOME MEDICATIONS: 1. Albuterol 2. Allopurinol 3. Gabapentin 4. Glipizide 5. Synthroid 6. Lisinopril 8. Pravastatin 9. Theophylline REVIEW OF SYSTEMS 12 point ROS conducted and is positive for the following findings; RESPIRATORY: Shortness of breath that is improved, General fatigue. All other review of systems are negative. PHYSICAL EXAMINATION: GENERAL: A well-developed, well-nourished, elderly man in no distress, resting comfortably in bed. HEAD: Normocephalic, atraumatic. ENT; nasal cannula in place. NECK: Supple with no palpable lymphadenopathy. RESPIRATORY: Scattered mild coarse breath sounds bilaterally. CARDIOVASCULAR SYSTEM: Regular rate and rhythm with no murmurs. GASTROINTESTINAL: Soft, nontender, nondistended with bowel sounds present. EXTREMITIES: No edema. NEUROLOGIC: Grossly nonfocal. SKIN: No bruises. ASSESSMENT AND PLAN: 1. Stage 1A, clinical [id number] nonsmall cell lung cancer, squamous cell carcinoma s/p biopsy. Treatment for Stage 1A lung cancer includes surgical resection and definitive radiation therapy. given performance status and COPD he is likely not a candidate for resection. He has an appointment next week with radiation oncology. Will order MRI brain to have done while inpatient. 2. Asymmetric uptake seen in the left nasopharyngeal wall. No CT correlate. Referral has been placed in the outpatient setting, see ET for direct visualization. 3. Pneumothorax status post placement of two chest tubes with improvement of respiratory status. MD DANIELLE Mariscal/taylor /12:57 PM /1:14 PM [place]
--- NOTE | 2017-04-21 15:43 | MB ---
cc: LUISist DATE OF CONSULTATION: 04/21/2017 REASON FOR CONSULTATION: Mr. Arriaza is an 82-year-old white male who was recently diagnosed with a left upper lobe squamous cell cancer on a needle aspiration biopsy. He was monitored for 24 hours because he had a small apical pneumothorax after the biopsy but it was stable and he was discharged home. He came back about 2 days later yesterday with increasing shortness of breath and a chest x-ray revealed a large left pneumothorax. A chest tube was inserted and a chest film this morning reveals tube in good position with no significant residual pneumothorax. The patient feels much better. He is taken care of at the [facility] for [facility]. He is on oxygen continuously at home as well as a couple of inhalers which he could not remember the name of. MEDICATIONS According to his medical record the ambulatory medications include; 1. Albuterol. 2. Theophylline 3. Oxygen. PAST MEDICAL HISTORY 1. Hypertension 2. Hyperlipidemia 3. diabetes, 4. history of prostate cancer 5. kidney stones 6. Hypothyroidism 7. diabetic neuropathy 8. The recent diagnosis of lung cancer. He has not yet been seen by oncology. ALLERGIES DIATRIZOATE FAMILY HISTORY: Family history is positive for left ear the ED and a son with a renal cell cancer. SOCIAL HISTORY Was a prior smoker, quit smoking about 10 years ago after of 50 pack-year history. No current alcohol use. REVIEW OF SYSTEMS At present he is comfortable at rest. No shortness of breath. No chest pain. No purulent sputum or hemoptysis. PHYSICAL EXAMINATION VITAL SIGNS: 98 degrees Blood pressure 190/104, pulse is 70, respiration 18-20 HEAD, EYES, EARS, NOSE, AND THROAT: sclerae anicteric. NECK: Neck veins are flat. No adenopathy in the neck or supraclavicular region. CHEST: Chest tube in place in the left upper chest. Breath sounds are equal bilaterally. HEART: Regular rhythm. No harsh murmur. EXTREMITIES: No edema or cyanosis. No clubbing. DISCUSSION Mr. Arriaza presents after a needle aspiration biopsy several days ago with a large left pneumothorax now drained and no active air leak. PLAN: 1. We will continue his oxygen therapy, nebulized aerosol treatment and monitor his chest x-ray for stabilization of the air potential air leak. 2. Further diagnostic and/or therapeutic range will depend on his ongoing clinical course. R. Yehuda Youssef MD RSLaurence/mh /1:42 PM /2:54 PM
[2017-04-21] MEDS: glipiZIDE 5 MG TAB PO SCH ×2 (16:00→16:55)
[2017-04-21] MEDS: HEPARIN SODIUM - SQ 10,000 UNITS/ML VIAL SQ SCH (16:55)
[2017-04-21] MEDS: hydrALAZINE HCL 50 MG TAB PO SCH ×2 (20:12→23:19)
[2017-04-21] MEDS ORDERED: GADODIAMIDE PF 287 MG/ML 20 ML VIAL (for RAD MRI) IV PUSH ONE (21:08)
[2017-04-21] MEDS: LATANOPROST 0.005% OPHT SOLN 2.5 ML BTL EACH EYE SCH (21:17)
[2017-04-21] MEDS: FAMOTIDINE 20 MG/2 ML VIAL IV PUSH SCH (21:18)
[2017-04-21] MEDS: traZODone HCL 50 MG TAB PO SCH (21:18)
--- NOTE | 2017-04-21 21:31 | RADRPT ---
EXAM DATE/TIME: 04/21/2017 20:29 [facility] COMPARISON: No previous studies available for comparison. INDICATIONS : Metastatic disease. CONTRAST: 20 cc Omniscan (gadodiamide) IV MEDICAL HISTORY : Carcinoma, lung. Hypertension. Diabetes mellitus type 2. SURGICAL HISTORY : Cholecystectomy. ENCOUNTER: Initial ACUITY: 1 day PAIN SCORE: 0/10 LOCATION: cranial TECHNIQUE: Multiplanar, multisequence MRI of the brain was performed both prior to and following the administrat ion of paramagnetic contrast. FINDINGS: CEREBRUM: The ventricles, sulci, and basal cisterns are prominent character to moderate severity atrophy. No e vidence of midline shift, mass lesion, hemorrhage or acute infarction. No extraaxial fluid collectio ns are seen. The pituitary gland and suprasellar cistern are normal in configuration. WHITE MATTER: No significant signal abnormalities are seen in the white matter. POSTERIOR FOSSA: The cerebellum and brainstem are intact. The 4th ventricle is midline. The cerebellopontine angle is unremarkable. The cerebellar tonsils are normal in position. DIFFUSION IMAGING: No focal areas of restricted diffusion are seen. No evidence of acute infarction. EXTRACRANIAL: The visualized portions of the orbits and paranasal sinuses are unremarkable. POST-CONTRAST: No abnormal areas of parenchymal or dural enhancement. No evidence of blood-brain barrier breakdown. CONCLUSION: 1. Moderate severity atrophy. 2. No evidence of metastatic disease to the brain. Darin Dimas MD on April 21, 2017 at 21:27 Board Certified Radiologist. This report was verified electronically.
[2017-04-22] VITALS (25 sets, daily range): BP systolic 102–220; BP diastolic 42–110; PULSE 65–104; RESP 10–30; TEMP 97–98.5; O2SAT 91–100
--- NOTE | 2017-04-22 02:14 | RADRPT ---
EXAM DATE/TIME: 04/22/2017 01:46 [facility] COMPARISON: CHEST SINGLE AP, April 21, 2017, 7:17. INDICATIONS : Recent pneumothorax with placement of chest tube. Premature removal of left sided pigtail catheter. MEDICAL HISTORY : Diabetes mellitus type II. Chronic obstructive pulmonary disease. Carcinoma, prostatic. Hypertens ion SURGICAL HISTORY : Cholecystectomy. ENCOUNTER: Subsequent ACUITY: 3 days PAIN SCORE: 0/10 LOCATION: Left chest FINDINGS: A single view of the chest demonstrates the lungs to be symmetrically aerated without evidence of mas s, infiltrate or effusion. The previously noted left-sided smallbore chest tube has been removed. Th ere is no recurrent pneumothorax. The cardiomediastinal contours are unremarkable. Osseous structure s are intact. CONCLUSION: Interval removal of left-sided chest tube with no recurrent pneumothorax. Maxx Melchor MD on April 22, 2017 at 2:12 Board Certified Radiologist. This report was verified electronically.
[2017-04-22] MEDS: RESP: ALBUTEROL 2.5 MG/IPRATROPIUM 0.5 MG NEB (SCH) NEB ×4 (03:46→14:40)
[2017-04-22] MEDS: CHLORHEXIDINE GLUCONATE 2 % 1 PACK (2 CLOTHS) TOP SCH (04:00)
[2017-04-22] MEDS: hydrALAZINE HCL 50 MG TAB PO SCH ×3 (05:25→22:00)
[2017-04-22] MEDS: HEPARIN SODIUM - SQ 10,000 UNITS/ML VIAL SQ SCH ×2 (05:26→18:28)
[2017-04-22] MEDS: LEVOTHYROXINE SODIUM 25 MCG TAB PO SCH (05:26)
[2017-04-22] MEDS: SODIUM CHLOR 0.9% 1000 ML INJ 1,000 ML IV SCH (05:56)
[2017-04-22 06:49] LABS: AUTOMATED NEUTROPHIL # 7.8 TH/MM3 (1.8-7.7); BASOPHIL % 0.2 % (0.0-2.0); HEMATOCRIT 34.9 % (39.0-51.0); HEMO FLAGS DIFF FINAL; LYMPHOCYTE # 0.7 TH/MM3 (1.0-4.8); MEAN CELL VOLUME 87.8 FL (80.0-100.0); MEAN CORPUSCULAR HEMOGLOBIN 28.6 PG (27.0-34.0); MEAN CORPUSCULAR HGB CONC 32.6 % (32.0-36.0); MONO % 4.3 % (0.0-8.0); NEUT % 87.5 % (16.0-70.0); PLATELET COUNT 231 TH/MM3 (150-450); RED BLOOD COUNT 3.98 MIL/MM3 (4.50-5.90); RED CELL DISTRIBUTION WIDTH 14.2 % (11.6-17.2); WHITE BLOOD COUNT 8.9 TH/MM3 (4.0-11.0)
[2017-04-22 07:04] LABS: ANION GAP 6 MEQ/L (5-15); AST (GOT) 24 U/L (15-37); BICARBONATE 27.4 MEQ/L (21.0-32.0); BLOOD UREA NITROGEN 19 MG/DL (7-18); CHLORIDE 105 MEQ/L (98-107); GLOMERULAR FILTRATION RATE 57 ML/MIN (>89); MAGNESIUM 1.6 MG/DL (1.5-2.5); POTASSIUM 4.5 MEQ/L (3.5-5.1); SODIUM (NA) 138 MEQ/L (136-145)
[2017-04-22 07:05] LABS: ALT (GPT) 15 U/L (12-78)
[2017-04-22 07:14] LABS: ALKALINE PHOSPHATASE 58 U/L (45-117); FREE T4 1.07 NG/DL (0.76-1.46); TOTAL BILIRUBIN ADULT 0.3 MG/DL (0.2-1.0)
[2017-04-22] MEDS: glipiZIDE 5 MG TAB PO SCH (07:17)
--- NOTE | 2017-04-22 07:26 | HHI.CCPN ---
Subjective Remarks/Hospital Course is a 82-year-old male with a past medical history of hypertension, hyperlipidemia, diabetes, COPD, prostate cancer, kidney stones, hypothyroidism, neuropathy, and recently diagnosed lung cancer. Patient has a history of COPD and had a routine chest x-ray done which had an incidental finding of lung nodule. He had a lung biopsy done previously, however not enough cells were collected to properly determine staging per son. Patient had a repeat lung biopsy on 04/17 however after the procedure was completed an x-ray done shortly after revealed a small left pneumothorax. IR was made aware, but held off on placing chest tube due to concern for blebs. He was admitted by the hospitalist service at that time and was subsequently discharged home. Patient uses 2-3 L O2 nasal cannula at home. Patient presented back to the ER on 04/20 night with worsening shortness of breath and a chest x-ray revealed a large left pneumothorax for which a 20 Jamaican chest tube was placed by ER physician with initial air leak with subsequently stopped with improvement in patient's respiratory status and O2 sats. He was weaned down from a nonrebreather to 6 L nasal cannula however postprocedure chest x-ray still shows residual pneumothorax on the right with chest tube tip appearing to be inside pleural cavity. Patient was accepted for admission by critical care medicine service and I evaluated the patient while he was in the ER. He states that his breathing has improved somewhat however he is still short of breath. He was on 6 L nasal cannula at the time of my evaluation and could speak in complete sentences. Patient also has a history of chronic left sided flank pain, son reports this is chronic and that has had workup to try and determine cause, but no clear answer has been identified. He also complains of numbness in his legs related to diabetic neuropathy. 04/22 Patient is on 3L oxygen with good sats. Chest tube dislodged overnight CXR showed no PTX . Afebrile. MRI brain last night no evidence of metastatic disease. Objective Vital Signs Date Time Temp Pulse Resp B/P (MAP) Pulse Ox O2 Delivery O2 Flow Rate FiO2 04/22/17 06:00 75 21 168/82 (110) 98 04/22/17 04:00 98.0 04/21/17 19:46 Nasal Cannula 3.00 04/20/17 23:30 60 Intake and Output 1104/22/17 04/23/17 08:00 16:00 00:00 Intake Total 2222 ml Output Total 790 ml Balance 1432 ml Result Diagram: 04/21/17 1219 04/22/17 0540 Other Results Laboratory Tests Test 04/21/17 12:19 04/22/17 05:40 White Blood Count 5.4 TH/MM3 8.9 TH/MM3 Red Blood Count 4.32 MIL/MM3 3.98 MIL/MM3 Hemoglobin 12.2 GM/DL 11.4 GM/DL Hematocrit 37.9 % 34.9 % Mean Corpuscular Volume 87.8 FL 87.8 FL Mean Corpuscular Hemoglobin 28.3 PG 28.6 PG Mean Corpuscular Hemoglobin Concent 32.2 % 32.6 % Red Cell Distribution Width 14.1 % 14.2 % Platelet Count 251 TH/MM3 231 TH/MM3 Mean Platelet Volume 7.2 FL 8.0 FL Neutrophils (%) (Auto) 89.1 % 87.5 % Lymphocytes (%) (Auto) 8.9 % 8.0 % Monocytes (%) (Auto) 1.9 % 4.3 % Eosinophils (%) (Auto) 0.0 % 0.0 % Basophils (%) (Auto) 0.1 % 0.2 % Neutrophils # (Auto) 4.8 TH/MM3 7.8 TH/MM3 Lymphocytes # (Auto) 0.5 TH/MM3 0.7 TH/MM3 Monocytes # (Auto) 0.1 TH/MM3 0.4 TH/MM3 Eosinophils # (Auto) 0.0 TH/MM3 0.0 TH/MM3 Basophils # (Auto) 0.0 TH/MM3 0.0 TH/MM3 CBC Comment DIFF FINAL DIFF FINAL Differential Comment Blood Urea Nitrogen 15 MG/DL 19 MG/DL Creatinine 1.46 MG/DL 1.44 MG/DL Random Glucose 111 MG/DL 92 MG/DL Calcium Level 9.9 MG/DL 9.8 MG/DL Phosphorus Level 1.4 MG/DL 1.6 MG/DL Magnesium Level 1.7 MG/DL 1.6 MG/DL Sodium Level 136 MEQ/L 138 MEQ/L Potassium Level 4.9 MEQ/L 4.5 MEQ/L Chloride Level 104 MEQ/L 105 MEQ/L Carbon Dioxide Level 26.8 MEQ/L 27.4 MEQ/L Anion Gap 5 MEQ/L 6 MEQ/L Estimat Glomerular Filtration Rate 56 ML/MIN 57 ML/MIN Total Protein 8.2 GM/DL Albumin 3.2 GM/DL Alkaline Phosphatase 58 U/L Aspartate Amino Transf (AST/SGOT) 24 U/L Alanine Aminotransferase (ALT/SGPT) 15 U/L Total Bilirubin 0.3 MG/DL Free Thyroxine 1.07 NG/DL Thyroid Stimulating Hormone 3rd Gen 1.190 uIU/ML Imaging Last Impressions Chest X-Ray 04/22/17 0000 Signed Impressions: Service Date/Time: Saturday, April 22, 2017 01:46 - CONCLUSION: Interval removal of left-sided chest tube with no recurrent pneumothorax. Maxx Melchor MD Chest CT 04/21/17 0000 Signed Impressions: Service Date/Time: Friday, April 21, 2017 01:50 - CONCLUSION: 1. The left-sided chest tube lies outside the thorax with the tip along the outer mid ribs. 2. Moderate to large left pneumothorax with mediastinal shift to the right. There is volume loss in the right hemithorax compared to the left however this is similar to on the prior CT. 3. Spiculated mass in the left upper lobe with underlying emphysema and scarring. 4. Small left effusion. These findings were called to Dr. Tucker in the emergency room immediately after the study was performed. Maxx Melchor MD Brain MRI 04/21/17 0000 Signed Impressions: Service Date/Time: Friday, April 21, 2017 20:29 - CONCLUSION: 1. Moderate severity atrophy. 2. No evidence of metastatic disease to the brain. Darin Dimas MD Objective Remarks GENERAL: Patient is lying in bed in NAD SKIN: Warm and dry. HEAD: Normocephalic. EYES: No scleral icterus. No injection or drainage. NECK: Supple, trachea midline. No JVD or lymphadenopathy. CARDIOVASCULAR: Regular rate and rhythm without murmurs, gallops, or rubs. RESPIRATORY: Breath sounds equal bilaterally. No accessory muscle use. GASTROINTESTINAL: Abdomen soft, non-tender, nondistended. MUSCULOSKELETAL: No cyanosis, or edema. Neuro: Awake and alert. A/P Assessment and Plan 82-year-old male with: Acute on chronic respiratory failure Left pneumothorax following lung biopsy status post left-sided chest tube placement ( dislodged) COPD with possible COPD exacerbation CAD Lung cancer Plan: Neuro: Follow neuro status. Awake and alert. MRI brain last night - no evidence of metastatic disease CV: Monitor HR and BP keep MAP>65mmHg On Lopressor 50mg Q12 and Hydralazine 50mg Q8 Pulm: Continue with oxygen keep sat >92% Bronchodilators, Solumederol 40mg Q12 Chest tube dislodged overnight repeat CXR showed no PTX. Pulm is following- Dr. Youssef. On Theophylline 300mg TID GI/liver:On PO diet Renal/: Monitor renal function, electrolytes replacement per protocol. ID: Monitor for signs of infections ( Fever, WBC) Heme: Monitor CBC, Onc is following Endocrine Solu-Medrol IV, SSI for glycemic control Heme follow CBC Prophylaxis: Pepcid/SCDs/heparin. Level 2 Sergio Trevizo MD Apr 22, 2017 07:26
[2017-04-22] MEDS ORDERED: MAGNESIUM OXIDE 400 MG TAB PO PRN (07:30)
[2017-04-22] MEDS ORDERED: POTASSIUM CHLOR 40 MEQ PREMIX 100 ML IV PRN ×2 (07:30)
[2017-04-22] MEDS ORDERED: POTASSIUM PHOSPHATE INJ 30 MMOL in SODIUM CHLOR 0.9% 250 ML INJ 250 ML IV PRN (07:30)
[2017-04-22] MEDS ORDERED: POTASSIUM CHLOR 20 MEQ PREMIX 100 ML IV PRN ×2 (07:30)
[2017-04-22] MEDS ORDERED: POTASSIUM PHOSPHATE MONOBASIC 500 MG TAB PO PRN (07:30)
[2017-04-22] MEDS ORDERED: MAGNESIUM SULFATE INJ 4 GM in SODIUM CHLORIDE 0.9% INJ 92 ML IV PRN (07:30)
[2017-04-22] MEDS ORDERED: SODIUM PHOSPHATE INJ 30 MMOL in SODIUM CHLOR 0.9% 250 ML INJ 240 ML IV PRN (07:30)
[2017-04-22] MEDS ORDERED: POTASSIUM CHLORIDE 25 MEQ EFFERVESCENT TAB PO PRN (07:30)
[2017-04-22] MEDS ORDERED: POTASSIUM PHOSPHATE MONOBASIC 500 MG TAB PO/TUBE PRN (07:30)
[2017-04-22] MEDS ORDERED: MAGNESIUM SULFATE INJ 2 GM in SODIUM CHLORIDE 0.9% INJ 96 ML IV PRN (07:30)
[2017-04-22] MEDS: INSULIN ASPART SUPPLEMENTAL SCALE SQ SCH ×4 (08:00→21:00)
[2017-04-22] MEDS: CHLORHEXIDINE 0.12% (ORAL KIT) 15 ML CUP MT SCH ×2 (08:00→20:00)
[2017-04-22] MEDS: FAMOTIDINE 20 MG/2 ML VIAL IV PUSH SCH ×2 (08:51→21:25)
[2017-04-22] MEDS: CYANOCOBALAMIN 1,000 MCG TAB PO SCH (08:51)
[2017-04-22] MEDS: ALLOPURINOL 100 MG TAB PO SCH (08:51)
[2017-04-22] MEDS: methylPREDNISolone SOD SUCC 40 MG/1 ML VIAL IV PUSH SCH (08:51)
[2017-04-22] MEDS: THEOPHYLLINE ER 12 HR 300 MG TABCR PO SCH ×2 (08:52→21:00)
[2017-04-22] MEDS: METOPROLOL TARTRATE 50 MG TAB PO SCH ×2 (08:52→21:00)
[2017-04-22] MEDS: LISINOPRIL 10 MG TAB PO SCH (08:52)
[2017-04-22] MEDS: PRAVASTATIN SOD 40 MG TAB PO SCH (08:52)
[2017-04-22] MEDS: HYDROCHLOROTHIAZIDE 25 MG TAB PO SCH (08:52)
[2017-04-22] MEDS: SODIUM CHLORIDE 0.9% FLUSH 10 ML FLUSH IV FLUSH SCH ×2 (08:53→21:00)
[2017-04-22] MEDS: BRIMONIDINE TARTRATE 0.2% OPHT SOLN 5 ML BTL EACH EYE SCH ×2 (08:53→21:26)
[2017-04-22 12:35] LABS: HEMOGLOBIN A1b 1.9 %; HEMOGLOBIN Ao 84.5 %; HEMOGLOBIN P3 4.1 %
[2017-04-22] MEDS ORDERED: HALOPERIDOL LACTATE 5 MG/ML AMP IV PUSH ONE (16:00)
[2017-04-22] MEDS ORDERED: LORazepam 2 MG/ML VIAL ONE ×2 (16:11→16:16)
[2017-04-22] MEDS ORDERED: DEXMEDETOMIDINE INJ 200 MCG in SODIUM CHLORIDE 0.9% INJ 50 ML IV PRN (16:30)
[2017-04-22 17:21] LABS: BLOOD GAS BASE EXCESS -0.4 mmol/L (-2-2); BLOOD GAS CARBOXYHEMOGLOBIN 0.5 % (0-4); BLOOD GAS HCO3 24 mmol/L (22-26); BLOOD GAS METHEMOGLOBIN 1.4 % (0-2); BLOOD GAS O2 HGB SATURATION 94 % (90-100); BLOOD GAS OXYGEN CONTENT 14.7 Vol % (12.0-20.0); BLOOD GAS PCO2 43 mmHg (38-42); BLOOD GAS PO2 85 mmHg (61-120); BLOOD GAS TOTAL HGB 11.2 G/DL (12.0-16.0); TEMP CORR TO 98.6
[2017-04-22 17:22] LABS: CRITICAL VALUE NO; DRAW SITE RT RADIAL; LITER FLOW 3 L/M; NUMBER OF ARTERIAL PUNCTURES 1; OXYGEN DEVICE NASAL CANNULA; STAT YES; ULNAR PULSE PRESENT
--- NOTE | 2017-04-22 20:54 | RADRPT ---
EXAM DATE/TIME: 04/22/2017 19:59 [facility] COMPARISON: CT THORAX W/O CONTRAST, April 21, 2017, 1:50. CHEST SINGLE AP, April 21, 2017, 7:17. CHEST SI NGLE AP, April 22, 2017, 1:46. INDICATIONS : Respiratory failure. MEDICAL HISTORY : Diabetes mellitus type II. Chronic obstructive pulmonary disease. Carcinoma prostatic. Hypertension SURGICAL HISTORY : Cholecystectomy ENCOUNTER: Subsequent ACUITY: 3 days PAIN SCORE: Non-responsive. LOCATION: Bilateral chest FINDINGS: There is a vertical interface in the lower left chest with associated lucency and outline of the apex of the heart. This is a new finding compared to prior chest x-ray and is nonspecific in appearance. An anterior lower left chest pneumothorax cannot be excluded. Left upper lung is clear. The right lung is stable in appearance with fullness in the right hilar region correlating with prominent pulm onary vessels on prior CT. Tortuous descending thoracic aorta. Cardiomegaly. CONCLUSION: Nonspecific findings with a lucency projected over the lower left chest; cannot exclude an anterior l ower left chest pneumothorax. May consider performing noncontrast CT for further characterization. Darin Dimas MD on April 22, 2017 at 20:47 Board Certified Radiologist. This report was verified electronically.
[2017-04-22] MEDS: traZODone HCL 50 MG TAB PO SCH (21:00)
[2017-04-22] MEDS: RESP: ALBUTEROL 2.5 MG/IPRATROPIUM 0.5 MG NEB (PRN) INH (21:05)
[2017-04-22] MEDS: LABETALOL HCL 100 MG/20 ML VIAL IV PUSH PRN ×2 (21:30→22:15)
[2017-04-22] MEDS: LATANOPROST 0.005% OPHT SOLN 2.5 ML BTL EACH EYE SCH (21:38)
[2017-04-22] MEDS: hydrALAZINE HCL 20 MG/ML VIAL IV PUSH PRN (22:14)
[2017-04-23] VITALS (23 sets, daily range): BP systolic 98–166; BP diastolic 50–81; PULSE 63–81; RESP 11–47; TEMP 97.3–98.7; O2SAT 91–100
[2017-04-23] MEDS: RESP: ALBUTEROL 2.5 MG/IPRATROPIUM 0.5 MG NEB (SCH) NEB ×3 (03:44→20:13)
[2017-04-23] MEDS: CHLORHEXIDINE GLUCONATE 2 % 1 PACK (2 CLOTHS) TOP SCH (04:00)
[2017-04-23] MEDS: LEVOTHYROXINE SODIUM 25 MCG TAB PO SCH (05:42)
[2017-04-23] MEDS: HEPARIN SODIUM - SQ 10,000 UNITS/ML VIAL SQ SCH ×2 (05:42→16:57)
[2017-04-23] MEDS: hydrALAZINE HCL 50 MG TAB PO SCH ×3 (05:49→20:59)
[2017-04-23 07:00] LABS: BICARBONATE 26.1 MEQ/L (21.0-32.0); POTASSIUM 3.8 MEQ/L (3.5-5.1)
[2017-04-23] MEDS: INSULIN ASPART SUPPLEMENTAL SCALE SQ SCH ×4 (08:00→20:59)
[2017-04-23] MEDS: CHLORHEXIDINE 0.12% (ORAL KIT) 15 ML CUP MT SCH ×2 (08:00→20:00)
[2017-04-23 08:30] LABS: AUTOMATED NEUTROPHIL # 7.5 TH/MM3 (1.8-7.7); BASOPHIL % 0.4 % (0.0-2.0); EOSINOPHIL % 0.1 % (0.0-4.0); HEMATOCRIT 35.7 % (39.0-51.0); HEMO FLAGS DIFF FINAL; LYMPHOCYTE # 0.9 TH/MM3 (1.0-4.8); MEAN CELL VOLUME 86.8 FL (80.0-100.0); MEAN CORPUSCULAR HEMOGLOBIN 28.8 PG (27.0-34.0); MEAN CORPUSCULAR HGB CONC 33.1 % (32.0-36.0); NEUT % 80.5 % (16.0-70.0); PLATELET COUNT 225 TH/MM3 (150-450); RED BLOOD COUNT 4.11 MIL/MM3 (4.50-5.90); RED CELL DISTRIBUTION WIDTH 14.4 % (11.6-17.2); WHITE BLOOD COUNT 9.3 TH/MM3 (4.0-11.0)
[2017-04-23] MEDS: SODIUM CHLORIDE 0.9% FLUSH 10 ML FLUSH IV FLUSH SCH ×2 (09:00→20:59)
[2017-04-23] MEDS: THEOPHYLLINE ER 12 HR 300 MG TABCR PO SCH ×2 (09:28→20:58)
[2017-04-23] MEDS: FAMOTIDINE 20 MG/2 ML VIAL IV PUSH SCH ×2 (09:28→22:15)
[2017-04-23] MEDS: ALLOPURINOL 100 MG TAB PO SCH (09:29)
[2017-04-23] MEDS: METOPROLOL TARTRATE 50 MG TAB PO SCH ×2 (09:29→20:58)
[2017-04-23] MEDS: predniSONE 20 MG TAB PO SCH (09:29)
[2017-04-23] MEDS: PRAVASTATIN SOD 40 MG TAB PO SCH (09:29)
[2017-04-23] MEDS: BRIMONIDINE TARTRATE 0.2% OPHT SOLN 5 ML BTL EACH EYE SCH ×2 (09:29→20:57)
[2017-04-23] MEDS: HYDROCHLOROTHIAZIDE 25 MG TAB PO SCH (09:29)
[2017-04-23] MEDS: CYANOCOBALAMIN 1,000 MCG TAB PO SCH (09:29)
[2017-04-23] MEDS: LISINOPRIL 10 MG TAB PO SCH (09:29)
--- NOTE | 2017-04-23 11:04 | HHI.CCPN ---
Subjective Remarks/Hospital Course is a 82-year-old male with a past medical history of hypertension, hyperlipidemia, diabetes, COPD, prostate cancer, kidney stones, hypothyroidism, neuropathy, and recently diagnosed lung cancer. Patient has a history of COPD and had a routine chest x-ray done which had an incidental finding of lung nodule. He had a lung biopsy done previously, however not enough cells were collected to properly determine staging per son. Patient had a repeat lung biopsy on 04/17 however after the procedure was completed an x-ray done shortly after revealed a small left pneumothorax. IR was made aware, but held off on placing chest tube due to concern for blebs. He was admitted by the hospitalist service at that time and was subsequently discharged home. Patient uses 2-3 L O2 nasal cannula at home. Patient presented back to the ER on 04/20 night with worsening shortness of breath and a chest x-ray revealed a large left pneumothorax for which a 20 [place]inean chest tube was placed by ER physician with initial air leak with subsequently stopped with improvement in patient's respiratory status and O2 sats. He was weaned down from a nonrebreather to 6 L nasal cannula however postprocedure chest x-ray still shows residual pneumothorax on the right with chest tube tip appearing to be inside pleural cavity. Patient was accepted for admission by critical care medicine service and I evaluated the patient while he was in the ER. He states that his breathing has improved somewhat however he is still short of breath. He was on 6 L nasal cannula at the time of my evaluation and could speak in complete sentences. Patient also has a history of chronic left sided flank pain, son reports this is chronic and that has had workup to try and determine cause, but no clear answer has been identified. He also complains of numbness in his legs related to diabetic neuropathy. 04/22 Patient is on 3L oxygen with good sats. Chest tube dislodged overnight CXR showed no PTX . Afebrile. MRI brain last night no evidence of metastatic disease. 04/23 Patient was agitated, combative yesterday given Halol, Ativan and placed on Precedex drip. Objective Vital Signs Date Time Temp Pulse Resp B/P (MAP) Pulse Ox O2 Delivery O2 Flow Rate FiO2 04/23/17 10:00 78 21 121/59 (79) 91 04/23/17 08:01 Nasal Cannula 2.00 04/23/17 08:00 97.9 04/20/17 23:30 60 Intake and Output 04/23/17 04/23/17 04/24/17 08:00 16:00 00:00 Intake Total 55 ml Output Total 500 ml Balance -445 ml Result Diagram: 04/23/17 0810 04/23/17 0608 Other Results Laboratory Tests Test 04/22/17 17:13 04/22/17 21:50 04/23/17 06:08 04/23/17 08:10 Blood Gas Puncture Site RT RADIAL Blood Gas Patient Temperature 98.6 Blood Gas HCO3 24 mmol/L Blood Gas Base Excess -0.4 mmol/L Blood Gas Oxygen Saturation 94 % Arterial Blood pH 7.37 Arterial Blood Partial Pressure CO2 43 mmHg Arterial Blood Partial Pressure O2 85 mmHg Arterial Blood Oxygen Content 14.7 Vol % Arterial Blood Carboxyhemoglobin 0.5 % Arterial Blood Methemoglobin 1.4 % Blood Gas Hemoglobin 11.2 G/DL Oxygen Delivery Device NASAL CANNULA Blood Gas Liter Flow 3 L/M Phosphorus Level 3.5 MG/DL 4.3 MG/DL Blood Urea Nitrogen 31 MG/DL Creatinine 2.15 MG/DL Random Glucose 98 MG/DL Calcium Level 9.7 MG/DL Magnesium Level 2.0 MG/DL Sodium Level 140 MEQ/L Potassium Level 3.8 MEQ/L Chloride Level 105 MEQ/L Carbon Dioxide Level 26.1 MEQ/L Anion Gap 9 MEQ/L Estimat Glomerular Filtration Rate 36 ML/MIN White Blood Count 9.3 TH/MM3 Red Blood Count 4.11 MIL/MM3 Hemoglobin 11.8 GM/DL Hematocrit 35.7 % Mean Corpuscular Volume 86.8 FL Mean Corpuscular Hemoglobin 28.8 PG Mean Corpuscular Hemoglobin Concent 33.1 % Red Cell Distribution Width 14.4 % Platelet Count 225 TH/MM3 Mean Platelet Volume 7.3 FL Neutrophils (%) (Auto) 80.5 % Lymphocytes (%) (Auto) 10.0 % Monocytes (%) (Auto) 9.0 % Eosinophils (%) (Auto) 0.1 % Basophils (%) (Auto) 0.4 % Neutrophils # (Auto) 7.5 TH/MM3 Lymphocytes # (Auto) 0.9 TH/MM3 Monocytes # (Auto) 0.8 TH/MM3 Eosinophils # (Auto) 0.0 TH/MM3 Basophils # (Auto) 0.0 TH/MM3 CBC Comment DIFF FINAL Differential Comment Imaging Last Impressions Chest X-Ray 04/22/17 0000 Signed Impressions: Service Date/Time: Saturday, April 22, 2017 19:59 - CONCLUSION: Nonspecific findings with a lucency projected over the lower left chest; cannot exclude an anterior lower left chest pneumothorax. May consider performing noncontrast CT for further characterization. Darin Dimas MD Chest CT 04/21/17 0000 Signed Impressions: Service Date/Time: Friday, April 21, 2017 01:50 - CONCLUSION: 1. The left-sided chest tube lies outside the thorax with the tip along the outer mid ribs. 2. Moderate to large left pneumothorax with mediastinal shift to the right. There is volume loss in the right hemithorax compared to the left however this is similar to on the prior CT. 3. Spiculated mass in the left upper lobe with underlying emphysema and scarring. 4. Small left effusion. These findings were called to Dr. Tucker in the emergency room immediately after the study was performed. Maxx Melchor MD Brain MRI 04/21/17 0000 Signed Impressions: Service Date/Time: Friday, April 21, 2017 20:29 - CONCLUSION: 1. Moderate severity atrophy. 2. No evidence of metastatic disease to the brain. Darin Dimas MD Objective Remarks GENERAL: Patient is lying in bed in NAD SKIN: Warm and dry. HEAD: Normocephalic. EYES: No scleral icterus. No injection or drainage. NECK: Supple, trachea midline. No JVD or lymphadenopathy. CARDIOVASCULAR: Regular rate and rhythm without murmurs, gallops, or rubs. RESPIRATORY: Breath sounds equal bilaterally. No accessory muscle use. GASTROINTESTINAL: Abdomen soft, non-tender, nondistended. MUSCULOSKELETAL: No cyanosis, or edema. Neuro: Drowsy on Precedex infusion A/P Assessment and Plan 82-year-old male with: Acute on chronic respiratory failure Left pneumothorax following lung biopsy status post left-sided chest tube placement ( dislodged) COPD with possible COPD exacerbation CAD Lung cancer- Squamous cell ca Plan: Neuro: Monitro neuro status. On Precedex drip for agitation likely 2nd Delirium MRI brain 04/21 - no evidence of metastatic disease CV: Monitor HR and BP keep MAP>65mmHg On Lopressor 50mg Q12 and Hydralazine 50mg Q8 Pulm: Continue with oxygen keep sat >92% Bronchodilators, Solumederol 40mg Q12 CXR today showed 9mm left PTX.. 20Fr CT placed connected to 20 cm water suction Pulm is following- Dr. Youssef. On Theophylline 300mg TID GI/liver:On PO diet Renal/: Monitor renal function, electrolytes replacement per protocol. Renal function worse today with Cr: 2.15 from 1.44, place on NS@ 75ml/hr ID: Monitor for signs of infections ( Fever, WBC) Heme: Monitor CBC, Onc is following, Will consult radiation Oncology for Stage 1A lung ca Endo: SSI for glycemic control Heme follow CBC Prophylaxis: Pepcid/SCDs/heparin. Level 2 Sergio Trevizo MD Apr 23, 2017 11:04
--- NOTE | 2017-04-23 12:08 | RADRPT ---
EXAM DATE/TIME: 04/23/2017 11:07 [facility] COMPARISON: CT THORAX W/O CONTRAST, April 21, 2017, 1:50. CHEST SINGLE AP, April 18, 2017, 5:38. CHEST SI NGLE AP, April 22, 2017, 1:46. CHEST SINGLE AP, April 22, 2017, 19:59. INDICATIONS : Shortness of breath- COPD. MEDICAL HISTORY : Chronic obstructive pulmonary disease. Diabetes mellitus type II. Hypertension. Prostate cancer. SURGICAL HISTORY : Cholecystectomy. ENCOUNTER: Subsequent ACUITY: 2 days PAIN SCORE: Non-responsive. LOCATION: Bilateral chest FINDINGS: There is evidence of recurrence of the left pneumothorax with separation of the visceral and parietal pleura at the left apex measuring 9 mm and laterally in left mid chest measuring 8 mm. Configuratio n and the mediastinum is similar to prior examination. There is also new opacity in the right infrah ilar region which may represent a developing infiltrate. Both hemidiaphragms remain well delineated. Moderate tortuosity descending thoracic aorta. CONCLUSION: Reaccumulation of the left pneumothorax, measuring up to 9 mm. The findings were called to the nurse on the floor. Darin Dimas MD on April 23, 2017 at 12:01 Board Certified Radiologist. This report was verified electronically.
[2017-04-23] MEDS ORDERED: LIDOCAINE HCL 1% 50 ML VIAL ONE (12:47)
[2017-04-23] MEDS: SODIUM CHLOR 0.9% 1000 ML INJ 1,000 ML IV SCH (13:25)
--- NOTE | 2017-04-23 15:01 | RADRPT ---
EXAM DATE/TIME: 04/23/2017 14:08 [facility] COMPARISON: CHEST SINGLE AP, April 23, 2017, 11:07. INDICATIONS : Evaluate chest tube placement MEDICAL HISTORY : Chronic obstructive pulmonary disease. Diabetes mellitus type II. Hypertension. Prostate cancer SURGICAL HISTORY : Cholecystectomy. ENCOUNTER: Subsequent ACUITY: 2 days PAIN SCORE: Non-responsive. LOCATION: Bilateral chest FINDINGS: Interval placement of left chest drainage tube with tip crossing the midline projected to the right o f the spine. There is reexpansion of the left lung with a tiny residual pleural reflection posterior lateral which measures 5 mm in maximal width. Persistent infiltrates in the right mid and lower betty g. Both hemidiaphragms well delineated. Moderate tortuosity thoracic aorta. CONCLUSION: Interval placement of left chest drainage tube with significant reduction in size of left pneumothora x with a small pocket of gas measuring 5 mm upper lateral. Darin Dimas MD on April 23, 2017 at 14:58 Board Certified Radiologist. This report was verified electronically.
[2017-04-23] MEDS: LATANOPROST 0.005% OPHT SOLN 2.5 ML BTL EACH EYE SCH (20:57)
[2017-04-23] MEDS: traZODone HCL 50 MG TAB PO SCH (20:58)
[2017-04-23] MEDS: ACETAMINOPHEN 325 MG TAB PO PRN (20:58)
[2017-04-24] VITALS (24 sets, daily range): BP systolic 103–161; BP diastolic 57–112; PULSE 68–98; RESP 13–32; TEMP 97.5–98.7; O2SAT 93–99
[2017-04-24] MEDS: SODIUM CHLOR 0.9% 1000 ML INJ 1,000 ML IV SCH ×2 (01:14→13:40)
[2017-04-24] MEDS: CHLORHEXIDINE GLUCONATE 2 % 1 PACK (2 CLOTHS) TOP SCH (04:00)
[2017-04-24] MEDS: hydrALAZINE HCL 50 MG TAB PO SCH ×3 (06:07→21:28)
[2017-04-24] MEDS: ACETAMINOPHEN 325 MG TAB PO PRN (06:07)
[2017-04-24] MEDS: LEVOTHYROXINE SODIUM 25 MCG TAB PO SCH (06:07)
[2017-04-24] MEDS: HEPARIN SODIUM - SQ 10,000 UNITS/ML VIAL SQ SCH ×2 (06:08→17:17)
[2017-04-24 06:42] LABS: AUTOMATED NEUTROPHIL # 6.1 TH/MM3 (1.8-7.7); BASOPHIL % 0.1 % (0.0-2.0); EOSINOPHIL % 0.1 % (0.0-4.0); HEMATOCRIT 36.7 % (39.0-51.0); HEMO FLAGS DIFF FINAL; LYMPH % 9.2 % (9.0-44.0); LYMPHOCYTE # 0.7 TH/MM3 (1.0-4.8); MEAN CELL VOLUME 88.4 FL (80.0-100.0); MEAN CORPUSCULAR HEMOGLOBIN 28.4 PG (27.0-34.0); MEAN CORPUSCULAR HGB CONC 32.1 % (32.0-36.0); MONO % 10.8 % (0.0-8.0); NEUT % 79.8 % (16.0-70.0); PLATELET COUNT 255 TH/MM3 (150-450); RED BLOOD COUNT 4.16 MIL/MM3 (4.50-5.90); RED CELL DISTRIBUTION WIDTH 14.3 % (11.6-17.2); WHITE BLOOD COUNT 7.7 TH/MM3 (4.0-11.0)
[2017-04-24 07:14] LABS: BICARBONATE 27.9 MEQ/L (21.0-32.0); POTASSIUM 3.9 MEQ/L (3.5-5.1)
[2017-04-24] MEDS: RESP: ALBUTEROL 2.5 MG/IPRATROPIUM 0.5 MG NEB (SCH) NEB ×3 (07:42→20:29)
[2017-04-24] MEDS: CHLORHEXIDINE 0.12% (ORAL KIT) 15 ML CUP MT SCH ×2 (08:00→20:00)
[2017-04-24] MEDS: INSULIN ASPART SUPPLEMENTAL SCALE SQ SCH ×4 (08:00→21:00)
[2017-04-24] MEDS: LISINOPRIL 10 MG TAB PO SCH (08:14)
[2017-04-24] MEDS: ALLOPURINOL 100 MG TAB PO SCH (08:14)
[2017-04-24] MEDS: CYANOCOBALAMIN 1,000 MCG TAB PO SCH (08:14)
[2017-04-24] MEDS: HYDROCHLOROTHIAZIDE 25 MG TAB PO SCH (08:15)
[2017-04-24] MEDS: SODIUM CHLORIDE 0.9% FLUSH 10 ML FLUSH IV FLUSH SCH ×2 (08:16→21:27)
[2017-04-24] MEDS: BRIMONIDINE TARTRATE 0.2% OPHT SOLN 5 ML BTL EACH EYE SCH ×2 (08:16→21:28)
[2017-04-24] MEDS: FAMOTIDINE 20 MG/2 ML VIAL IV PUSH SCH ×2 (08:16→21:27)
[2017-04-24] MEDS: PRAVASTATIN SOD 40 MG TAB PO SCH (08:22)
[2017-04-24] MEDS: THEOPHYLLINE ER 12 HR 300 MG TABCR PO SCH ×2 (08:22→21:28)
[2017-04-24] MEDS: METOPROLOL TARTRATE 50 MG TAB PO SCH (08:22)
[2017-04-24] MEDS: predniSONE 20 MG TAB PO SCH (08:22)
[2017-04-24] MEDS: ACETAMINOPHEN/HYDROcodone 325 MG/5 MG TAB PO PRN (09:30)
--- NOTE | 2017-04-24 10:05 | HHI.CCPN ---
Subjective Remarks/Hospital Course is a 82-year-old male with a past medical history of hypertension, hyperlipidemia, diabetes, COPD, prostate cancer, kidney stones, hypothyroidism, neuropathy, and recently diagnosed lung cancer. Patient has a history of COPD and had a routine chest x-ray done which had an incidental finding of lung nodule. He had a lung biopsy done previously, however not enough cells were collected to properly determine staging per son. Patient had a repeat lung biopsy on 04/17 however after the procedure was completed an x-ray done shortly after revealed a small left pneumothorax. IR was made aware, but held off on placing chest tube due to concern for blebs. He was admitted by the hospitalist service at that time and was subsequently discharged home. Patient uses 2-3 L O2 nasal cannula at home. Patient presented back to the ER on 04/20 night with worsening shortness of breath and a chest x-ray revealed a large left pneumothorax for which a 20 Turkish chest tube was placed by ER physician with initial air leak with subsequently stopped with improvement in patient's respiratory status and O2 sats. He was weaned down from a nonrebreather to 6 L nasal cannula however postprocedure chest x-ray still shows residual pneumothorax on the right with chest tube tip appearing to be inside pleural cavity. Patient was accepted for admission by critical care medicine service and I evaluated the patient while he was in the ER. He states that his breathing has improved somewhat however he is still short of breath. He was on 6 L nasal cannula at the time of my evaluation and could speak in complete sentences. Patient also has a history of chronic left sided flank pain, son reports this is chronic and that has had workup to try and determine cause, but no clear answer has been identified. He also complains of numbness in his legs related to diabetic neuropathy. 04/22 Patient is on 3L oxygen with good sats. Chest tube dislodged overnight CXR showed no PTX . Afebrile. MRI brain last night no evidence of metastatic disease. 04/23 Patient was agitated, combative yesterday given Halol, Ativan and placed on Precedex drip. 04/24 Patient is off Precedex drip. Awake and alert. 20Fr CT was placed on left yesterday for recurrent PTX. Renal function is worse today with Cr: 3.99 from 2.15 Objective Vital Signs Date Time Temp Pulse Resp B/P (MAP) Pulse Ox O2 Delivery O2 Flow Rate FiO2 04/24/17 07:42 97 Nasal Cannula 3.00 04/24/17 06:00 71 04/24/17 04:00 98.7 21 103/68 (80) 04/20/17 23:30 60 Intake and Output 04/24/17 04/24/17 04/25/17 08:00 16:00 00:00 Intake Total 1488 ml Balance 1488 ml Result Diagram: 04/24/17 0545 04/24/17 0549 Other Results Laboratory Tests Test 04/24/17 05:45 04/24/17 05:49 White Blood Count 7.7 TH/MM3 Red Blood Count 4.16 MIL/MM3 Hemoglobin 11.8 GM/DL Hematocrit 36.7 % Mean Corpuscular Volume 88.4 FL Mean Corpuscular Hemoglobin 28.4 PG Mean Corpuscular Hemoglobin Concent 32.1 % Red Cell Distribution Width 14.3 % Platelet Count 255 TH/MM3 Mean Platelet Volume 7.7 FL Neutrophils (%) (Auto) 79.8 % Lymphocytes (%) (Auto) 9.2 % Monocytes (%) (Auto) 10.8 % Eosinophils (%) (Auto) 0.1 % Basophils (%) (Auto) 0.1 % Neutrophils # (Auto) 6.1 TH/MM3 Lymphocytes # (Auto) 0.7 TH/MM3 Monocytes # (Auto) 0.8 TH/MM3 Eosinophils # (Auto) 0.0 TH/MM3 Basophils # (Auto) 0.0 TH/MM3 CBC Comment DIFF FINAL Differential Comment Blood Urea Nitrogen 49 MG/DL Creatinine 3.99 MG/DL Random Glucose 91 MG/DL Calcium Level 8.9 MG/DL Sodium Level 141 MEQ/L Potassium Level 3.9 MEQ/L Chloride Level 105 MEQ/L Carbon Dioxide Level 27.9 MEQ/L Anion Gap 8 MEQ/L Estimat Glomerular Filtration Rate 17 ML/MIN Imaging Last Impressions Chest X-Ray 04/23/17 0000 Signed Impressions: Service Date/Time: Sunday, April 23, 2017 14:08 - CONCLUSION: Interval placement of left chest drainage tube with significant reduction in size of left pneumothorax with a small pocket of gas measuring 5 mm upper lateral. Darin Dimas MD Chest CT 04/21/17 0000 Signed Impressions: Service Date/Time: Friday, April 21, 2017 01:50 - CONCLUSION: 1. The left-sided chest tube lies outside the thorax with the tip along the outer mid ribs. 2. Moderate to large left pneumothorax with mediastinal shift to the right. There is volume loss in the right hemithorax compared to the left however this is similar to on the prior CT. 3. Spiculated mass in the left upper lobe with underlying emphysema and scarring. 4. Small left effusion. These findings were called to Dr. Tucker in the emergency room immediately after the study was performed. Maxx Melchor MD Brain MRI 04/21/17 0000 Signed Impressions: Service Date/Time: Friday, April 21, 2017 20:29 - CONCLUSION: 1. Moderate severity atrophy. 2. No evidence of metastatic disease to the brain. Darin Dimas MD Objective Remarks GENERAL: Patient is lying in bed in NAD SKIN: Warm and dry. HEAD: Normocephalic. EYES: No scleral icterus. No injection or drainage. NECK: Supple, trachea midline. No JVD or lymphadenopathy. CARDIOVASCULAR: Regular rate and rhythm without murmurs, gallops, or rubs. RESPIRATORY: Breath sounds equal bilaterally. No accessory muscle use. GASTROINTESTINAL: Abdomen soft, non-tender, nondistended. MUSCULOSKELETAL: No cyanosis, or edema. Neuro: Drowsy on Precedex infusion A/P Assessment and Plan 82-year-old male with: Acute on chronic respiratory failure Recurrent Left pneumothorax following lung biopsy status post left-sided chest tube placement ( dislodged) COPD with possible COPD exacerbation CAD Lung cancer- Squamous cell ca Plan: Neuro: Monitor neuro status. Avoid sedatives MRI brain 04/21 - no evidence of metastatic disease CV: Monitor HR and BP keep MAP>65mmHg On Lopressor 50mg Q12 and Hydralazine 50mg Q8 Pulm: Continue with oxygen keep sat >92% Bronchodilators, Prednisone 20mg daily 20Fr CT placed 04/23 for recurrent PTX Pulm is following- Dr. Youssef. On Theophylline 300mg TID GI/liver:On PO diet Renal/: Monitor renal function, electrolytes replacement per protocol. Renal function worse today with Cr: 3.99 today from 2.15 On NS@75ml/hr. Check Renal US and consult nephrology ID: Monitor for signs of infections ( Fever, WBC) Heme: Monitor CBC, Onc is following, Will consult radiation Oncology for Stage 1A lung ca Endo: SSI for glycemic control Heme follow CBC Prophylaxis: Pepcid/SCDs/heparin. Level 2 Sergio Trevizo MD Apr 24, 2017 10:04
[2017-04-24 11:19] LABS: BICARBONATE 25.3 MEQ/L (21.0-32.0); POTASSIUM 3.9 MEQ/L (3.5-5.1)
--- NOTE | 2017-04-24 11:34 | RADRPT ---
EXAM DATE/TIME: 04/24/2017 10:26 [facility] COMPARISON: No previous studies available for comparison. INDICATIONS : Acute kidney injury. MEDICAL HISTORY : Hypercholesterolemia. Lung mass. Thyroid disease. Hypertension. Glaucoma. COPD. Dyspnea. Renal di sease. Prostate seeding. Diabetes. Prostate cancer. MRSA. SURGICAL HISTORY : Bilateral cataract removal. Discectomy and fusion. ENCOUNTER: Initial ACUITY: 1 day PAIN SCORE: 0/10 LOCATION: Bilateral flank MEASUREMENTS: RIGHT KIDNEY: 10.3 x 5.0 x 5.3 cm LEFT KIDNEY: 9.8 x 5.7 x 5.4 cm FINDINGS: RIGHT KIDNEY: Renal cortex is normal in thickness and echotexture. No hydronephrosis, stone, or mass. LEFT KIDNEY: Renal cortex is normal in thickness and echotexture. No hydronephrosis, stone, or mass. BLADDER: The bladder is totally decompressed and not well valuated. CONCLUSION: Unremarkable kidneys. Bladder totally decompressed. Darin Nuñez Jr., MD on April 24, 2017 at 11:31 Board Certified Radiologist. This report was verified electronically.
--- NOTE | 2017-04-24 15:36 | PD.CONS ---
HPI Service Nephrology Consult Requested By Dr. Trevizo Reason for Consult Acute renal failure Primary Care Physician Daren Redding MD History of Present Illness Patient is a 82-year-old male with history of diabetes, prostate cancer status post radiation, hypertension, chronic kidney disease were discovered to have lung cancer he had a chest tube placed due to complications pneumothorax from the biopsy, he is noticed to have declining urine output increasing creatinine, patient has been treated with the lisinopril , HCTZ, Hydralazine PRN and metoprolol for blood pressure, his blood pressure does fluctuate and is labile. He stated he has knowledge of chronic kidney disease but do not recall any kidney stones his urine flow is good and his prostate cancer was treated with seeds many years ago, he states he was exposed to asbestos. Review of Systems Constitutional: COMPLAINS OF: Fatigue Respiratory: COMPLAINS OF: Cough, Shortness of breath Musculoskeletal: COMPLAINS OF: Joint pain, Muscle aches Past Family Social History Allergies: Coded Allergies: diatrizoate meglumine (Unverified Allergy, Unknown, itching after arthrogram, 01/10/17) Uncoded Allergies: Morphi (Adverse Reaction, Severe, 04/26/17) Severe Delirium Past Medical History Diabetes Hypertension Chronic kidney disease Hyperlipidemia COPD, uses oxygen at home 2-3L Prostate cancer S/P radiation Kidney stones Hypothyroidism Diabetic neuropathy Lung cancer Past Surgical History Cataracta surgery Back surgery X5 with history of fusion Lung biopsy Reported Medications Reported Meds & Active Scripts Active Reported Trazodone (Trazodone HCl) 50 Mg Tab 50 Mg PO HS Brimonidine Opth Drops (Brimonidine Tartrate) 0.2% Soln 1 Drop EACH EYE BID Allopurinol 100 Mg Tab 100 Mg PO DAILY Albuterol Neb (Albuterol Sulfate) 0.63 Mg/3 Ml Neb 0.5 Mg NEB QID NEB PRN Theophylline ER 12 HR (Theophylline) 300 Mg Tab 300 Mg PO TID Pravastatin 40 Mg Tab 40 Mg PO DAILY Vitamin B-12 (Cyanocobalamin) 1,000 Mcg Tab 1,000 Mcg PO DAILY Lisinopril-Hctz 10-12.5 Mg Tab 1 Tab PO DAILY Levothyroxine (Levothyroxine Sodium) 25 Mcg Tab 25 Mcg PO DAILY Latanoprost Opth Drops (Latanoprost) 0.005% Drops 1 Drop EACH EYE HS Refrigerate until opened. Glipizide 5 Mg Tab 5 Mg PO BIDAC Take 30 minutes before a meal Perforomist Neb (Formoterol Fumarate) 20 Mcg/2 Ml Neb 1 Nebule INH TID Asmanex 30 Act Twisthaler (Mometasone 30 Act Inh) 220 Mcg/Act Inh 2 Puff INH BID Ventolin Hfa 18 GM Inh (Albuterol Sulfate) 90 Mcg/Act Aer 1 Puff INH Q12HR PRN Active Ordered Medications Current Medications Medications (Trade) Dose Ordered Sig/Speedy Route Start Time Stop Time Status Last Admin (NS Flush) 2 ml UNSCH PRN IV FLUSH 04/21/17 01:15 (NS Flush) 2 ml BID IV FLUSH 04/21/17 09:00 04/24/17 08:16 (Tylenol) 650 mg Q6H PRN PO 04/21/17 01:15 04/24/17 06:07 ([place] 5-325 Mg) 1 tab Q4H PRN PO 04/21/17 01:15 04/24/17 09:30 (Morphine Inj) 2 mg Q6HR PRN IV PUSH 04/21/17 01:15 04/23/17 13:17 (Duoneb Neb) 1 ampule Q2HR NEB PRN INH 04/21/17 01:15 04/22/17 21:05 (Peridex 0.12% Liq) 15 ml BID@08,20 MT 04/21/17 08:00 04/22/17 20:00 (Heparin Inj) 5,000 units Q12H SQ 04/21/17 18:00 04/24/17 06:08 Miscellaneous Information 1 Q361D XX 04/21/17 01:15 04/21/17 02:22 (Chlorhexidine 2% Cloth) 3 pack Taper DAILY@04 TOP 04/21/17 04:00 04/17/18 03:59 04/24/17 04:00 (Chlorhexidine 2% Cloth) 3 pack UNSCH PRN TOP 04/21/17 01:15 (NovoLOG SUPPLEMENTAL SCALE) 1 ACHS SLIDING SCALE SQ 04/21/17 08:00 04/21/17 08:00 (Trandate Inj) 10 mg Q4H PRN IV PUSH 04/21/17 01:15 04/22/17 21:30 (Zyloprim) 100 mg DAILY PO 04/21/17 09:00 04/24/17 08:14 (Alphagan 0.2% Opth Soln) 1 drop BID EACH EYE 04/21/17 09:00 04/24/17 08:16 (Vitamin B12) 1,000 mcg DAILY PO 04/21/17 09:00 04/24/17 08:14 (Xalatan 0.005% Opth Soln) 1 drop HS EACH EYE 04/21/17 21:00 04/23/17 20:57 (Synthroid) 25 mcg DAILY@0600 PO 04/21/17 06:00 04/24/17 06:07 (Pravachol) 40 mg DAILY PO 04/21/17 09:00 04/24/17 08:22 (Desyrel) 50 mg HS PO 04/21/17 21:00 04/23/17 20:58 Patient Own Medication 1 ea TID INH 04/21/17 09:00 Future Hold Patient Own Medication PT OWN MED: Mometas... BID INH 04/21/17 09:00 Future Hold (Prinivil) 10 mg DAILY PO 04/21/17 09:00 04/24/17 08:14 (Hydrodiuril) 12.5 mg DAILY PO 04/21/17 09:00 04/24/17 08:15 (Lopressor) 50 mg Q12HR PO 04/21/17 10:45 04/24/17 08:22 (Pepcid Inj) 10 mg Q12HR IV PUSH 04/21/17 21:00 04/24/17 08:16 (Apresoline) 50 mg Q8HR PO 04/21/17 17:00 04/24/17 14:16 (Theochron) 300 mg BID PO 04/22/17 21:00 04/24/17 08:22 (Deltasone) 20 mg DAILY PO 04/23/17 09:00 04/26/17 09:00 04/24/17 08:22 (Apresoline Inj) 20 mg Q4H PRN IV PUSH 04/22/17 22:15 04/22/17 22:14 Sodium Chloride 1,000 ml @ 75 mls/hr [id number] IV 04/23/17 11:00 04/24/17 13:40 (Duoneb Neb) 1 ampule TID NEB NEB 04/23/17 14:00 04/24/17 11:07 Family History Noncontributory Social History Remote history of smoking denies alcohol use Physical Exam Vital Signs Vital Signs Date Time Temp Pulse Resp B/P (MAP) Pulse Ox O2 Delivery O2 Flow Rate FiO2 04/24/17 13:00 79 28 161/65 (97) 93 04/24/17 12:00 81 04/24/17 12:00 98.1 81 18 139/64 (89) 94 04/24/17 11:00 79 23 154/70 (98) 95 04/24/17 11:00 79 04/24/17 10:00 80 04/24/17 10:00 80 28 144/69 (94) 97 04/24/17 09:00 75 04/24/17 09:00 75 19 138/63 (88) 96 04/24/17 08:01 79 04/24/17 08:00 75 04/24/17 08:00 75 18 139/65 (89) 97 04/24/17 07:42 97 Nasal Cannula 3.00 04/24/17 07:00 75 04/24/17 07:00 98.3 75 17 141/65 (90) 98 04/24/17 07:00 98 Nasal Cannula 3.00 04/24/17 06:00 71 04/24/17 04:00 68 04/24/17 04:00 98.7 68 21 103/68 (80) 97 04/24/17 02:00 72 04/24/17 00:00 75 04/24/17 00:00 97.5 75 20 111/57 (75) 97 04/23/17 22:00 79 04/23/17 20:14 97 Nasal Cannula 3.00 04/23/17 20:00 98.7 75 20 116/55 (75) 96 04/23/17 20:00 96 Nasal Cannula 3.00 04/23/17 20:00 74 04/23/17 18:00 81 28 157/70 (99) 97 04/23/17 18:00 81 04/23/17 17:00 97.7 74 18 150/81 (104) 93 04/23/17 16:00 67 14 139/72 (94) 95 04/23/17 16:00 67 Physical Exam GENERAL: Well-nourished, well-developed patient. SKIN: Warm and dry. HEAD: Normocephalic. EYES: No scleral icterus. No injection or drainage. NECK: Supple, trachea midline. No JVD or lymphadenopathy. CARDIOVASCULAR: Regular rate and rhythm without murmurs, gallops, or rubs. RESPIRATORY: Breath sounds equal bilaterally. No accessory muscle use. Chest tube in place GASTROINTESTINAL: Abdomen soft, non-tender, nondistended. EXTREMITIES: No cyanosis, or edema. NEUROLOGICAL: Awake, alert, and oriented x 3. Non-focal. Laboratory Laboratory Tests Test 04/24/17 05:45 04/24/17 05:49 04/24/17 10:50 White Blood Count 7.7 Red Blood Count 4.16 Hemoglobin 11.8 Hematocrit 36.7 Mean Corpuscular Volume 88.4 Mean Corpuscular Hemoglobin 28.4 Mean Corpuscular Hemoglobin Concent 32.1 Red Cell Distribution Width 14.3 Platelet Count 255 Mean Platelet Volume 7.7 Neutrophils (%) (Auto) 79.8 Lymphocytes (%) (Auto) 9.2 Monocytes (%) (Auto) 10.8 Eosinophils (%) (Auto) 0.1 Basophils (%) (Auto) 0.1 Neutrophils # (Auto) 6.1 Lymphocytes # (Auto) 0.7 Monocytes # (Auto) 0.8 Eosinophils # (Auto) 0.0 Basophils # (Auto) 0.0 CBC Comment DIFF FINAL Differential Comment Blood Urea Nitrogen 49 52 Creatinine 3.99 4.28 Random Glucose 91 103 Calcium Level 8.9 8.6 Sodium Level 141 139 Potassium Level 3.9 3.9 Chloride Level 105 105 Carbon Dioxide Level 27.9 25.3 Anion Gap 8 9 Estimat Glomerular Filtration Rate 17 16 Result Diagram: 04/24/17 0545 04/24/17 1050 Imaging Last Impressions Chest X-Ray 04/23/17 0000 Signed Impressions: Service Date/Time: Sunday, April 23, 2017 14:08 - CONCLUSION: Interval placement of left chest drainage tube with significant reduction in size of left pneumothorax with a small pocket of gas measuring 5 mm upper lateral. Darin Dimas MD Chest CT 04/21/17 0000 Signed Impressions: Service Date/Time: Friday, April 21, 2017 01:50 - CONCLUSION: 1. The left-sided chest tube lies outside the thorax with the tip along the outer mid ribs. 2. Moderate to large left pneumothorax with mediastinal shift to the right. There is volume loss in the right hemithorax compared to the left however this is similar to on the prior CT. 3. Spiculated mass in the left upper lobe with underlying emphysema and scarring. 4. Small left effusion. These findings were called to Dr. Tucker in the emergency room immediately after the study was performed. Maxx Melchor MD Brain MRI 04/21/17 0000 Signed Impressions: Service Date/Time: Friday, April 21, 2017 20:29 - CONCLUSION: 1. Moderate severity atrophy. 2. No evidence of metastatic disease to the brain. Darin Dimas MD Assessment and Plan Problem List: (1) Acute renal failure ICD Codes: N17.9 - Acute kidney failure, unspecified Plan: I will check a urine sodium and creatinine since her renal function progressively getting worse I agree with hydrating him I will add albumin I will also give him a trial of Fenoldopam at low-dose to improve the perfusion to the kidney ultrasound kidneys are unremarkable Discontinue BRITANY inhibitor/HCTZ Hold. Beta blockers while on fenoldopam Check urine sodium and creatinine (2) Hypertension ICD Codes: I10 - Essential (primary) hypertension Plan: Given a trial of fenoldopam (3) Pneumothorax after biopsy ICD Codes: J95.811 - Postprocedural pneumothorax Status: Acute Plan: Chest tube in place (4) Lung mass ICD Codes: R91.8 - Other nonspecific abnormal finding of lung field Status: Acute Plan: Pulmonary is following for squamous cell lung cancer Problem Qualifiers (1) Acute renal failure: Qualified Codes: N17.9 - Acute kidney failure, unspecified (2) Hypertension: Qualified Codes: I10 - Essential (primary) hypertension Eric Montana MD Apr 24, 2017 15:36
[2017-04-24] MEDS: ALBUMIN 25% INJ 50 ML IV SCH (17:17)
[2017-04-24] MEDS: LATANOPROST 0.005% OPHT SOLN 2.5 ML BTL EACH EYE SCH (21:00)
--- NOTE | 2017-04-24 21:08 | PD.ONC.PN ---
Subjective Subjective Remarks Resting comfortably in bed in no distress. Son and niece at bedside Objective Data Date Time Temp Pulse Resp B/P (MAP) Pulse Ox O2 Delivery O2 Flow Rate FiO2 04/24/17 20:31 95 Nasal Cannula 3.00 04/24/17 18:00 91 31 160/75 (103) 98 04/24/17 18:00 91 04/24/17 17:00 86 28 128/60 (82) 98 04/24/17 17:00 86 04/24/17 16:00 98.0 88 21 142/60 (87) 99 04/24/17 16:00 88 04/24/17 15:00 87 32 134/64 (87) 95 04/24/17 15:00 87 04/24/17 14:00 83 04/24/17 14:00 83 16 146/65 (92) 96 04/24/17 13:00 79 04/24/17 13:00 79 28 161/65 (97) 93 04/24/17 12:00 81 04/24/17 12:00 98.1 81 18 139/64 (89) 94 04/24/17 11:00 79 23 154/70 (98) 95 04/24/17 11:00 79 04/24/17 10:00 80 04/24/17 10:00 80 28 144/69 (94) 97 04/24/17 09:00 75 04/24/17 09:00 75 19 138/63 (88) 96 04/24/17 08:01 79 04/24/17 08:00 75 04/24/17 08:00 75 18 139/65 (89) 97 04/24/17 07:42 97 Nasal Cannula 3.00 04/24/17 07:00 75 04/24/17 07:00 98.3 75 17 141/65 (90) 98 04/24/17 07:00 98 Nasal Cannula 3.00 04/24/17 06:00 71 04/24/17 04:00 68 04/24/17 04:00 98.7 68 21 103/68 (80) 97 04/24/17 02:00 72 04/24/17 00:00 75 04/24/17 00:00 97.5 75 20 111/57 (75) 97 04/23/17 22:00 79 11/04/24/17 04/24/17 07:00 15:00 23:00 Intake Total 1488 ml 1000 ml 50 ml Output Total 600 ml Balance 1488 ml 1000 ml -550 ml Result Diagram: 04/24/17 0545 04/24/17 1050 Laboratory Results Laboratory Tests Test 04/24/17 05:45 04/24/17 05:49 04/24/17 10:50 04/24/17 16:40 White Blood Count 7.7 TH/MM3 Red Blood Count 4.16 MIL/MM3 Hemoglobin 11.8 GM/DL Hematocrit 36.7 % Mean Corpuscular Volume 88.4 FL Mean Corpuscular Hemoglobin 28.4 PG Mean Corpuscular Hemoglobin Concent 32.1 % Red Cell Distribution Width 14.3 % Platelet Count 255 TH/MM3 Mean Platelet Volume 7.7 FL Neutrophils (%) (Auto) 79.8 % Lymphocytes (%) (Auto) 9.2 % Monocytes (%) (Auto) 10.8 % Eosinophils (%) (Auto) 0.1 % Basophils (%) (Auto) 0.1 % Neutrophils # (Auto) 6.1 TH/MM3 Lymphocytes # (Auto) 0.7 TH/MM3 Monocytes # (Auto) 0.8 TH/MM3 Eosinophils # (Auto) 0.0 TH/MM3 Basophils # (Auto) 0.0 TH/MM3 CBC Comment DIFF FINAL Differential Comment Blood Urea Nitrogen 49 MG/DL 52 MG/DL Creatinine 3.99 MG/DL 4.28 MG/DL Random Glucose 91 MG/DL 103 MG/DL Calcium Level 8.9 MG/DL 8.6 MG/DL Sodium Level 141 MEQ/L 139 MEQ/L Potassium Level 3.9 MEQ/L 3.9 MEQ/L Chloride Level 105 MEQ/L 105 MEQ/L Carbon Dioxide Level 27.9 MEQ/L 25.3 MEQ/L Anion Gap 8 MEQ/L 9 MEQ/L Estimat Glomerular Filtration Rate 17 ML/MIN 16 ML/MIN Urine Random Creatinine 156.4 MG/DL Urine Random Sodium 112 MEQ/L Imaging Studies Last 24 hours Impressions Renal Ultrasound 04/24/17 0000 Signed Impressions: Service Date/Time: Monday, April 24, 2017 10:26 - CONCLUSION: Unremarkable kidneys. Bladder totally decompressed. Darin Nuñez Jr., MD Administered Medications Medications (Trade) Dose Ordered Sig/Speedy Route PRN Reason Start Time Stop Time Status Last Admin Dose Admin Sodium Chloride (NS Flush) 2 ml BID IV FLUSH 04/21/17 09:00 04/24/17 08:16 Acetaminophen (Tylenol) 650 mg Q6H PRN PO FEVER >101F 04/21/17 01:15 04/24/17 06:07 Acetaminophen/ Hydrocodone Bitart ([place] 5-325 Mg) 1 tab Q4H PRN PO PAIN SCALE 1 TO 5 04/21/17 01:15 04/24/17 09:30 Morphine Sulfate (Morphine Inj) 2 mg Q6HR PRN IV PUSH PAIN SCALE 6 TO 10 04/21/17 01:15 04/23/17 13:17 Albuterol/ Ipratropium (Duoneb Neb) 1 ampule Q2HR NEB PRN INH SHORTNESS OF BREATH 04/21/17 01:15 04/22/17 21:05 Chlorhexidine Gluconate (Peridex 0.12% Liq) 15 ml BID@08,20 MT 04/21/17 08:00 04/22/17 20:00 Heparin Sodium (Porcine) (Heparin Inj) 5,000 units Q12H SQ 04/21/17 18:00 04/24/17 17:17 Miscellaneous Information 1 Q361D XX 04/21/17 01:15 04/21/17 02:22 Chlorhexidine Gluconate (Chlorhexidine 2% Cloth) 3 pack Taper DAILY@04 TOP 04/21/17 04:00 04/17/18 03:59 04/24/17 04:00 Insulin Aspart (NovoLOG SUPPLEMENTAL SCALE) 1 ACHS SLIDING SCALE SQ 04/21/17 08:00 04/21/17 08:00 Labetalol HCl (Trandate Inj) 10 mg Q4H PRN IV PUSH SBP greater than 160mm Hg 04/21/17 01:15 04/22/17 21:30 Allopurinol (Zyloprim) 100 mg DAILY PO 04/21/17 09:00 04/24/17 08:14 Brimonidine Tartrate (Alphagan 0.2% Opth Soln) 1 drop BID EACH EYE 04/21/17 09:00 04/24/17 08:16 Cyanocobalamin (Vitamin B12) 1,000 mcg DAILY PO 04/21/17 09:00 04/24/17 08:14 Latanoprost (Xalatan 0.005% Opth Soln) 1 drop HS EACH EYE 04/21/17 21:00 04/23/17 20:57 Levothyroxine Sodium (Synthroid) 25 mcg DAILY@0600 PO 04/21/17 06:00 04/24/17 06:07 Pravastatin Sodium (Pravachol) 40 mg DAILY PO 04/21/17 09:00 04/24/17 08:22 Trazodone HCl (Desyrel) 50 mg HS PO 04/21/17 21:00 04/23/17 20:58 Metoprolol Tartrate (Lopressor) 50 mg Q12HR PO 04/21/17 10:45 Future Hold 04/24/17 08:22 Famotidine (Pepcid Inj) 10 mg Q12HR IV PUSH 04/21/17 21:00 04/24/17 08:16 Hydralazine HCl (Apresoline) 50 mg Q8HR PO 04/21/17 17:00 04/24/17 14:16 Theophylline (Theochron) 300 mg BID PO 04/22/17 21:00 04/24/17 08:22 Prednisone (Deltasone) 20 mg DAILY PO 04/23/17 09:00 04/26/17 09:00 04/24/17 08:22 Hydralazine HCl (Apresoline Inj) 20 mg Q4H PRN IV PUSH SBP>160, DBP>90 04/22/17 22:15 04/22/17 22:14 Sodium Chloride 1,000 ml @ 75 mls/hr [id number] IV 04/23/17 11:00 04/24/17 13:40 Albuterol/ Ipratropium (Duoneb Neb) 1 ampule TID NEB NEB 04/23/17 14:00 04/24/17 20:29 Albumin Human 50 ml @ 60 mls/hr Q12H IV 04/24/17 16:00 04/24/17 17:17 Objective Remarks GENERAL: Well-nourished, well-developed patient. SKIN: Warm and dry. HEAD: Normocephalic. EYES: No scleral icterus. No injection or drainage. NECK: Supple, trachea midline. No JVD or lymphadenopathy. LYMPHATIC: No adenopathy. CARDIOVASCULAR: Regular rate and rhythm without murmurs. RESPIRATORY: Breath sounds equal bilaterally. No accessory muscle use. GASTROINTESTINAL: Abdomen soft, non-tender, nondistended. EXTREMITIES: No edema. MUSCULOSKELETAL: Adequate muscle tone. NEUROLOGICAL: No obvious focal deficit. Awake, alert, and oriented x3. PSYCHIATRIC: Appropriate mood and affect; insight and judgment normal. Assessment/Plan Assessment 1. NSCLC, SCC, clinical [id number]: patient has been seen by Dr. Brink in radiation oncology who will plan for definitive radiation therapy once patient discharged from hospital. MRI brain is negative. 2. Pneumothorax: s/p placement of chest tube with improvement in respiratory status. 3. Renal insufficiency: acute on chronic, uncertain of etiology, nephrology team following. Fay Valerio MD Apr 24, 2017 21:08
[2017-04-24] MEDS: traZODone HCL 50 MG TAB PO SCH (21:28)
--- NOTE | 2017-04-24 22:14 | RADRPT ---
EXAM DATE/TIME: 04/24/2017 20:42 [facility] COMPARISON: CHEST SINGLE AP, April 23, 2017, 14:08. INDICATIONS : Verify chest tube placement. MEDICAL HISTORY : Hypertension. Carcinoma, prostatic. Chronic obstructive pulmonary disease. Diabetes mellitus typ e II. SURGICAL HISTORY : Cholecystectomy. ENCOUNTER: Subsequent ACUITY: 3 days PAIN SCORE: 0/10 LOCATION: Bilateral chest FINDINGS: A single view of the chest demonstrates the lungs to be symmetrically aerated with persistent left ba silar airspace disease/effusion. Right lung is grossly clear. Left-sided thoracostomy tube is stable in position. No pneumothorax. There is some deep tissue emphysematous changes about the left chest. H eart size is normal. Degenerative spurring of the dorsal spine. CONCLUSION: 1. Persistent left basilar consolidation/effusion. 2. Left-sided thoracostomy tube without pneumothorax. 3. Mild, deep tissue emphysematous changes about the left hemithorax Amilcar Barr MD on April 24, 2017 at 22:10 Board Certified Radiologist. This report was verified electronically.
[2017-04-24] MEDS: [UNRECOGNIZED DRUG - OTHER] IV SCH (22:19)
[2017-04-24] MEDS: SODIUM CHLORIDE 0.9% IV SCH (22:19)
[2017-04-25] VITALS (27 sets, daily range): BP systolic 126–189; BP diastolic 58–96; PULSE 86–124; RESP 13–41; TEMP 97.8–98.7; O2SAT 92–99
[2017-04-25] MEDS: CHLORHEXIDINE GLUCONATE 2 % 1 PACK (2 CLOTHS) TOP SCH (04:00)
[2017-04-25] MEDS: SODIUM CHLOR 0.9% 1000 ML INJ 1,000 ML IV SCH ×2 (05:07→19:41)
[2017-04-25] MEDS: hydrALAZINE HCL 50 MG TAB PO SCH ×3 (05:08→21:34)
[2017-04-25] MEDS: ALBUMIN 25% INJ 50 ML IV SCH ×2 (05:08→17:51)
[2017-04-25] MEDS: LEVOTHYROXINE SODIUM 25 MCG TAB PO SCH (05:09)
[2017-04-25] MEDS: HEPARIN SODIUM - SQ 10,000 UNITS/ML VIAL SQ SCH ×2 (05:09→17:52)
[2017-04-25] MEDS: [UNRECOGNIZED DRUG - OTHER] IV SCH ×2 (05:10→19:41)
[2017-04-25] MEDS: SODIUM CHLORIDE 0.9% IV SCH ×2 (05:10→19:41)
[2017-04-25 05:37] LABS: AUTOMATED NEUTROPHIL # 6.1 TH/MM3 (1.8-7.7); BASOPHIL % 0.3 % (0.0-2.0); EOSINOPHIL % 0.1 % (0.0-4.0); HEMATOCRIT 36.7 % (39.0-51.0); HEMO FLAGS DIFF FINAL; LYMPH % 11.5 % (9.0-44.0); LYMPHOCYTE # 0.9 TH/MM3 (1.0-4.8); MEAN CELL VOLUME 88.4 FL (80.0-100.0); MEAN CORPUSCULAR HEMOGLOBIN 28.6 PG (27.0-34.0); MEAN CORPUSCULAR HGB CONC 32.4 % (32.0-36.0); MONO % 11.2 % (0.0-8.0); NEUT % 76.9 % (16.0-70.0); PLATELET COUNT 220 TH/MM3 (150-450); RED BLOOD COUNT 4.16 MIL/MM3 (4.50-5.90); RED CELL DISTRIBUTION WIDTH 14.4 % (11.6-17.2); WHITE BLOOD COUNT 7.9 TH/MM3 (4.0-11.0)
[2017-04-25 06:17] LABS: BICARBONATE 23.6 MEQ/L (21.0-32.0); POTASSIUM 3.7 MEQ/L (3.5-5.1)
[2017-04-25 06:18] LABS: THEOPHYLLINE 24.8 MCG/ML (10.0-20.0)
[2017-04-25] MEDS: THEOPHYLLINE ER 12 HR 300 MG TABCR PO SCH (07:23)
[2017-04-25] MEDS: INSULIN ASPART SUPPLEMENTAL SCALE SQ SCH ×4 (08:00→21:00)
[2017-04-25] MEDS: CHLORHEXIDINE 0.12% (ORAL KIT) 15 ML CUP MT SCH ×2 (08:00→20:00)
[2017-04-25] MEDS: RESP: ALBUTEROL 2.5 MG/IPRATROPIUM 0.5 MG NEB (SCH) NEB ×3 (08:07→19:37)
[2017-04-25] MEDS: predniSONE 20 MG TAB PO SCH (08:49)
[2017-04-25] MEDS: BRIMONIDINE TARTRATE 0.2% OPHT SOLN 5 ML BTL EACH EYE SCH ×2 (08:50→21:35)
[2017-04-25] MEDS: CYANOCOBALAMIN 1,000 MCG TAB PO SCH (08:50)
[2017-04-25] MEDS: SODIUM CHLORIDE 0.9% FLUSH 10 ML FLUSH IV FLUSH SCH ×2 (08:50→21:34)
[2017-04-25] MEDS: PRAVASTATIN SOD 40 MG TAB PO SCH (08:50)
[2017-04-25] MEDS: ALLOPURINOL 100 MG TAB PO SCH (08:50)
[2017-04-25] MEDS: FAMOTIDINE 20 MG/2 ML VIAL IV PUSH SCH ×2 (08:50→21:34)
--- NOTE | 2017-04-25 09:33 | HHI.CCPN ---
Subjective Remarks/Hospital Course is a 82-year-old male with a past medical history of hypertension, hyperlipidemia, diabetes, COPD, prostate cancer, kidney stones, hypothyroidism, neuropathy, and recently diagnosed lung cancer. Patient has a history of COPD and had a routine chest x-ray done which had an incidental finding of lung nodule. He had a lung biopsy done previously, however not enough cells were collected to properly determine staging per son. Patient had a repeat lung biopsy on 04/17 however after the procedure was completed an x-ray done shortly after revealed a small left pneumothorax. IR was made aware, but held off on placing chest tube due to concern for blebs. He was admitted by the hospitalist service at that time and was subsequently discharged home. Patient uses 2-3 L O2 nasal cannula at home. Patient presented back to the ER on 04/20 night with worsening shortness of breath and a chest x-ray revealed a large left pneumothorax for which a 20 Amharic chest tube was placed by ER physician with initial air leak with subsequently stopped with improvement in patient's respiratory status and O2 sats. He was weaned down from a nonrebreather to 6 L nasal cannula however postprocedure chest x-ray still shows residual pneumothorax on the right with chest tube tip appearing to be inside pleural cavity. Patient was accepted for admission by critical care medicine service and I evaluated the patient while he was in the ER. He states that his breathing has improved somewhat however he is still short of breath. He was on 6 L nasal cannula at the time of my evaluation and could speak in complete sentences. Patient also has a history of chronic left sided flank pain, son reports this is chronic and that has had workup to try and determine cause, but no clear answer has been identified. He also complains of numbness in his legs related to diabetic neuropathy. 04/22 Patient is on 3L oxygen with good sats. Chest tube dislodged overnight CXR showed no PTX . Afebrile. MRI brain last night no evidence of metastatic disease. 04/23 Patient was agitated, combative yesterday given Halol, Ativan and placed on Precedex drip. 04/24 Patient is off Precedex drip. Awake and alert. 20Fr CT was placed on left yesterday for recurrent PTX. Renal function is worse today with Cr: 3.99 from 2.15 04/25 Patient is lying in bed in NAD. CXR last night showed no evidence of PTX, CT is in good position, left basilar consolidation. . Renal function worse today with Cr: 4.93, UOP: 1150 ml in 24hrs Objective Vital Signs Date Time Temp Pulse Resp B/P (MAP) Pulse Ox O2 Delivery O2 Flow Rate FiO2 04/25/17 08:07 98 Nasal Cannula 3.00 04/25/17 06:00 90 04/25/17 06:00 16 132/60 (84) 04/25/17 04:00 98.4 Intake and Output 04/25/17 04/25/17 04/26/17 08:00 16:00 00:00 Intake Total 240 ml Output Total 550 ml Balance -310 ml Result Diagram: 04/25/17 0459 04/25/17 0459 Other Results Laboratory Tests Test 04/24/17 10:50 04/24/17 16:40 04/25/17 04:59 Blood Urea Nitrogen 52 MG/DL 69 MG/DL Creatinine 4.28 MG/DL 4.93 MG/DL Random Glucose 103 MG/DL 96 MG/DL Calcium Level 8.6 MG/DL 8.9 MG/DL Sodium Level 139 MEQ/L 142 MEQ/L Potassium Level 3.9 MEQ/L 3.7 MEQ/L Chloride Level 105 MEQ/L 108 MEQ/L Carbon Dioxide Level 25.3 MEQ/L 23.6 MEQ/L Anion Gap 9 MEQ/L 10 MEQ/L Estimat Glomerular Filtration Rate 16 ML/MIN 14 ML/MIN Urine Random Creatinine 156.4 MG/DL Urine Random Sodium 112 MEQ/L White Blood Count 7.9 TH/MM3 Red Blood Count 4.16 MIL/MM3 Hemoglobin 11.9 GM/DL Hematocrit 36.7 % Mean Corpuscular Volume 88.4 FL Mean Corpuscular Hemoglobin 28.6 PG Mean Corpuscular Hemoglobin Concent 32.4 % Red Cell Distribution Width 14.4 % Platelet Count 220 TH/MM3 Mean Platelet Volume 7.5 FL Neutrophils (%) (Auto) 76.9 % Lymphocytes (%) (Auto) 11.5 % Monocytes (%) (Auto) 11.2 % Eosinophils (%) (Auto) 0.1 % Basophils (%) (Auto) 0.3 % Neutrophils # (Auto) 6.1 TH/MM3 Lymphocytes # (Auto) 0.9 TH/MM3 Monocytes # (Auto) 0.9 TH/MM3 Eosinophils # (Auto) 0.0 TH/MM3 Basophils # (Auto) 0.0 TH/MM3 CBC Comment DIFF FINAL Differential Comment Theophylline Level 24.8 MCG/ML Imaging Last Impressions Renal Ultrasound 04/24/17 0000 Signed Impressions: Service Date/Time: Monday, April 24, 2017 10:26 - CONCLUSION: Unremarkable kidneys. Bladder totally decompressed. Darin Nuñez Jr., MD Chest X-Ray 04/24/17 0000 Signed Impressions: Service Date/Time: Monday, April 24, 2017 20:42 - CONCLUSION: 1. Persistent left basilar consolidation/effusion. 2. Left-sided thoracostomy tube without pneumothorax. 3. Mild, deep tissue emphysematous changes about the left hemithorax Amilcar Barr MD Chest CT 04/21/17 0000 Signed Impressions: Service Date/Time: Friday, April 21, 2017 01:50 - CONCLUSION: 1. The left-sided chest tube lies outside the thorax with the tip along the outer mid ribs. 2. Moderate to large left pneumothorax with mediastinal shift to the right. There is volume loss in the right hemithorax compared to the left however this is similar to on the prior CT. 3. Spiculated mass in the left upper lobe with underlying emphysema and scarring. 4. Small left effusion. These findings were called to Dr. Tucker in the emergency room immediately after the study was performed. Maxx Melchor MD Brain MRI 04/21/17 0000 Signed Impressions: Service Date/Time: Friday, April 21, 2017 20:29 - CONCLUSION: 1. Moderate severity atrophy. 2. No evidence of metastatic disease to the brain. Darin Dimas MD Objective Remarks GENERAL: Patient is lying in bed in NAD SKIN: Warm and dry. HEAD: Normocephalic. EYES: No scleral icterus. No injection or drainage. NECK: Supple, trachea midline. No JVD or lymphadenopathy. CARDIOVASCULAR: Regular rate and rhythm without murmurs, gallops, or rubs. RESPIRATORY: Breath sounds equal bilaterally. No accessory muscle use. GASTROINTESTINAL: Abdomen soft, non-tender, nondistended. MUSCULOSKELETAL: No cyanosis, or edema. Neuro: Awake and alert A/P Assessment and Plan 82-year-old male with: Acute on chronic respiratory failure Recurrent Left pneumothorax following lung biopsy status post left-sided chest tube placement ( dislodged) COPD with possible COPD exacerbation CAD Lung cancer- Squamous cell ca Plan: Neuro: Monitor neuro status. Avoid sedatives MRI brain 04/21 - no evidence of metastatic disease CV: Monitor HR and BP keep MAP>65mmHg On Hydralazine 50mg Q8 Pulm: Continue with oxygen keep sat >92% Bronchodilators, Prednisone 20mg daily 20Fr CT placed 04/23 for recurrent PTX CXR last night: CT is in place, no PTX, left basilar consolidation Pulm is following- Dr. Youssef. Hold Theophylline 300mg TID ( Level 24.8 this morning, recheck level tomorrow) GI/liver:On PO diet Renal/: Monitor renal function, electrolytes replacement per protocol. Renal function worse today with Cr: 4.93, UOP: 1150ml in 24hrs On Albumin Q12, Fenoldopam per renal- Dr. Montana Increase NS@100 ml/hr. Renal US unremarkable. ID: Monitor for signs of infections ( Fever, WBC) Heme: Monitor CBC, Onc is following-Stage 1A lung ca, definitive radiation therapy once patient discharged Endo: SSI for glycemic control Heme follow CBC Prophylaxis: Pepcid/SCDs/heparin. Level 3 Sergio Trevizo MD Apr 25, 2017 09:33
[2017-04-25] MEDS: ACETAMINOPHEN/HYDROcodone 325 MG/5 MG TAB PO PRN ×2 (10:24→21:45)
--- NOTE | 2017-04-25 12:48 | HHI.NPPN ---
Subjective History of Present Illness 82 year old with ARF, Lung Ca, CT in place for PTX Review of Systems General Constitutional: Fatigue Objective Data Data Vital Signs Date Time Temp Pulse Resp B/P (MAP) Pulse Ox O2 Delivery O2 Flow Rate FiO2 04/25/17 11:00 93 21 137/62 (87) 96 04/25/17 10:00 104 04/25/17 10:00 104 25 150/62 (91) 97 04/25/17 09:00 97 04/25/17 09:00 97 20 140/74 (96) 99 04/25/17 08:07 98 Nasal Cannula 3.00 04/25/17 08:00 97.8 86 14 133/74 (93) 96 04/25/17 08:00 86 04/25/17 07:00 86 13 133/63 (86) 97 04/25/17 07:00 98 Nasal Cannula 3.00 04/25/17 07:00 86 04/25/17 06:00 90 04/25/17 06:00 90 16 132/60 (84) 96 04/25/17 05:00 96 19 144/67 (92) 96 04/25/17 04:06 97 Nasal Cannula 3.00 04/25/17 04:00 98.4 95 18 133/73 (93) 95 04/25/17 04:00 95 04/25/17 03:00 117 16 127/96 (106) 92 04/25/17 02:00 94 17 147/65 (92) 95 04/25/17 02:00 94 04/25/17 01:00 97 18 137/64 (88) 96 04/25/17 00:00 98.2 94 16 126/58 (80) 96 04/25/17 00:00 94 04/24/17 23:00 94 13 140/61 (87) 96 04/24/17 22:00 98 04/24/17 22:00 98 18 144/77 (99) 95 04/24/17 21:00 97 16 148/64 (92) 95 04/24/17 20:31 95 Nasal Cannula 3.00 04/24/17 20:00 89 04/24/17 20:00 98.6 97 31 159/112 (128) 93 04/24/17 19:00 96 Nasal Cannula 3.00 04/24/17 19:00 87 21 146/78 (100) 96 04/24/17 18:00 91 31 160/75 (103) 98 04/24/17 18:00 91 04/24/17 17:00 86 28 128/60 (82) 98 04/24/17 17:00 86 04/24/17 16:00 98.0 88 21 142/60 (87) 99 04/24/17 16:00 88 04/24/17 15:00 87 32 134/64 (87) 95 04/24/17 15:00 87 04/24/17 14:00 83 04/24/17 14:00 83 16 146/65 (92) 96 04/24/17 13:00 79 04/24/17 13:00 79 28 161/65 (97) 93 -: 04/25/17 0459 04/25/17 0459 Physical Exam General Appearance: Well Developed, Well Nourished Neck Neck Exam: Neck Supple Pulmonary Resp Exam: Decreased Bases Cardiology CV Exam: Regular Gastrointestinal/Abdomen GI Exam: Soft, Non-Tender, Bowel Sounds Present Extremeties Extremities Exam: No Edema Assessment/Plan Problem List: (1) Acute renal failure ICD Codes: N17.9 - Acute kidney failure, unspecified Plan: Fenoldopam at low-dose to improve the perfusion to the kidney ,increase UOP Cr 4.9 non oliguric insert Jack D/W Dr. Trevizo follow BMP (2) Hypertension ICD Codes: I10 - Essential (primary) hypertension Plan: Given a trial of fenoldopam (3) Pneumothorax after biopsy ICD Codes: J95.811 - Postprocedural pneumothorax Status: Acute Plan: Chest tube in place (4) Lung mass ICD Codes: R91.8 - Other nonspecific abnormal finding of lung field Status: Acute Plan: Pulmonary is following for squamous cell lung cancer Problem Qualifiers (1) Acute renal failure: Qualified Codes: N17.9 - Acute kidney failure, unspecified (2) Hypertension: Qualified Codes: I10 - Essential (primary) hypertension Eric Montana MD Apr 25, 2017 12:48
[2017-04-25] MEDS: LATANOPROST 0.005% OPHT SOLN 2.5 ML BTL EACH EYE SCH (21:00)
[2017-04-25] MEDS: traZODone HCL 50 MG TAB PO SCH (21:34)
[2017-04-25] MEDS: hydrALAZINE HCL 20 MG/ML VIAL IV PUSH PRN (22:19)
[2017-04-26] VITALS (17 sets, daily range): BP systolic 138–192; BP diastolic 65–97; PULSE 88–107; RESP 15–31; TEMP 98–100.4; O2SAT 94–100
[2017-04-26] MEDS: CHLORHEXIDINE GLUCONATE 2 % 1 PACK (2 CLOTHS) TOP SCH (03:54)
[2017-04-26] MEDS: SODIUM CHLORIDE 0.9% IV SCH ×2 (03:54→11:24)
[2017-04-26] MEDS: ALBUMIN 25% INJ 50 ML IV SCH ×2 (03:54→15:36)
[2017-04-26] MEDS: [UNRECOGNIZED DRUG - OTHER] IV SCH ×2 (03:54→11:24)
--- NOTE | 2017-04-26 05:03 | RADRPT ---
EXAM DATE/TIME: 04/26/2017 03:53 [facility] COMPARISON: CHEST SINGLE AP, April 24, 2017, 20:42. INDICATIONS : Shortness of breath. MEDICAL HISTORY : Chronic obstructive pulmonary disease. Hypercholesterolemia. Lung mass. Thyroid disease. Hypert ension. Glaucoma, Renal disease. Prostate seeding. Diabetes. Prostate cancer. MRSA SURGICAL HISTORY : Bilateral cataract removal. Discectomy and fusion ENCOUNTER: Subsequent ACUITY: 1 week PAIN SCORE: Non-responsive. LOCATION: Bilateral chest FINDINGS: The heart size is upper limits of normal for size. There is hazy density seen at the left base. Right lung is grossly clear. CONCLUSION: Hazy density at the left base likely related to atelectasis or consolidation. Hernandez Sparks MD on April 26, 2017 at 5:01 Board Certified Radiologist. This report was verified electronically.
[2017-04-26] MEDS: LEVOTHYROXINE SODIUM 25 MCG TAB PO SCH (06:15)
[2017-04-26] MEDS: SODIUM CHLOR 0.9% 1000 ML INJ 1,000 ML IV SCH ×3 (06:15→20:46)
[2017-04-26] MEDS: hydrALAZINE HCL 50 MG TAB PO SCH ×3 (06:15→22:00)
[2017-04-26] MEDS: HEPARIN SODIUM - SQ 10,000 UNITS/ML VIAL SQ SCH ×2 (06:16→17:43)
[2017-04-26] MEDS: hydrALAZINE HCL 20 MG/ML VIAL IV PUSH PRN ×2 (06:16→22:00)
[2017-04-26 06:47] LABS: AUTOMATED NEUTROPHIL # 6.7 TH/MM3 (1.8-7.7); BASOPHIL % 0.1 % (0.0-2.0); EOSINOPHIL % 0.1 % (0.0-4.0); HEMATOCRIT 32.9 % (39.0-51.0); HEMO FLAGS DIFF FINAL; LYMPH % 7.6 % (9.0-44.0); LYMPHOCYTE # 0.6 TH/MM3 (1.0-4.8); MEAN CELL VOLUME 87.5 FL (80.0-100.0); MEAN CORPUSCULAR HEMOGLOBIN 28.5 PG (27.0-34.0); MEAN CORPUSCULAR HGB CONC 32.6 % (32.0-36.0); MONO % 9.4 % (0.0-8.0); NEUT % 82.8 % (16.0-70.0); PLATELET COUNT 210 TH/MM3 (150-450); RED BLOOD COUNT 3.76 MIL/MM3 (4.50-5.90); RED CELL DISTRIBUTION WIDTH 14.7 % (11.6-17.2); WHITE BLOOD COUNT 8.1 TH/MM3 (4.0-11.0)
[2017-04-26 07:15] LABS: BICARBONATE 19.7 MEQ/L (21.0-32.0); POTASSIUM 4.2 MEQ/L (3.5-5.1); THEOPHYLLINE 10.9 MCG/ML (10.0-20.0)
[2017-04-26] MEDS: INSULIN ASPART SUPPLEMENTAL SCALE SQ SCH ×4 (08:00→21:00)
[2017-04-26] MEDS: CHLORHEXIDINE 0.12% (ORAL KIT) 15 ML CUP MT SCH ×2 (08:00→20:00)
[2017-04-26] MEDS: ALLOPURINOL 100 MG TAB PO SCH (08:03)
[2017-04-26] MEDS: CYANOCOBALAMIN 1,000 MCG TAB PO SCH (08:03)
[2017-04-26] MEDS: predniSONE 20 MG TAB PO SCH (08:03)
[2017-04-26] MEDS: PRAVASTATIN SOD 40 MG TAB PO SCH (08:03)
[2017-04-26] MEDS: BRIMONIDINE TARTRATE 0.2% OPHT SOLN 5 ML BTL EACH EYE SCH ×2 (08:03→21:00)
[2017-04-26] MEDS: FAMOTIDINE 20 MG/2 ML VIAL IV PUSH SCH ×2 (08:04→21:00)
[2017-04-26] MEDS: SODIUM CHLORIDE 0.9% FLUSH 10 ML FLUSH IV FLUSH SCH ×2 (08:05→21:00)
[2017-04-26] MEDS: RESP: ALBUTEROL 2.5 MG/IPRATROPIUM 0.5 MG NEB (PRN) INH (08:43)
--- NOTE | 2017-04-26 11:33 | HHI.CCPN ---
Subjective Remarks/Hospital Course is a 82-year-old male with a past medical history of hypertension, hyperlipidemia, diabetes, COPD, prostate cancer, kidney stones, hypothyroidism, neuropathy, and recently diagnosed lung cancer. Patient has a history of COPD and had a routine chest x-ray done which had an incidental finding of lung nodule. He had a lung biopsy done previously, however not enough cells were collected to properly determine staging per son. Patient had a repeat lung biopsy on 04/17 however after the procedure was completed an x-ray done shortly after revealed a small left pneumothorax. IR was made aware, but held off on placing chest tube due to concern for blebs. He was admitted by the hospitalist service at that time and was subsequently discharged home. Patient uses 2-3 L O2 nasal cannula at home. Patient presented back to the ER on 04/20 night with worsening shortness of breath and a chest x-ray revealed a large left pneumothorax for which a 20 Salvadorean chest tube was placed by ER physician with initial air leak with subsequently stopped with improvement in patient's respiratory status and O2 sats. He was weaned down from a nonrebreather to 6 L nasal cannula however postprocedure chest x-ray still shows residual pneumothorax on the right with chest tube tip appearing to be inside pleural cavity. Patient was accepted for admission by critical care medicine service and I evaluated the patient while he was in the ER. He states that his breathing has improved somewhat however he is still short of breath. He was on 6 L nasal cannula at the time of my evaluation and could speak in complete sentences. Patient also has a history of chronic left sided flank pain, son reports this is chronic and that has had workup to try and determine cause, but no clear answer has been identified. He also complains of numbness in his legs related to diabetic neuropathy. 04/22 Patient is on 3L oxygen with good sats. Chest tube dislodged overnight CXR showed no PTX . Afebrile. MRI brain last night no evidence of metastatic disease. 04/23 Patient was agitated, combative yesterday given Halol, Ativan and placed on Precedex drip. 04/24 Patient is off Precedex drip. Awake and alert. 20Fr CT was placed on left yesterday for recurrent PTX. Renal function is worse today with Cr: 3.99 from 2.15 04/25 Patient is lying in bed in NAD. CXR last night showed no evidence of PTX, CT is in good position, left basilar consolidation. . Renal function worse today with Cr: 4.93, UOP: 1150 ml in 24hrs 04/26: Lying in bed no respiratory distress. L chest tube is displaced, but no pneumothorax. Removed at bedside. CXR in am did not show any pneumothorax. BUN/ creat 72/5.34. UO 1.4 L in 24 hours. Objective Vital Signs Date Time Temp Pulse Resp B/P (MAP) Pulse Ox O2 Delivery O2 Flow Rate FiO2 04/26/17 08:44 97 Nasal Cannula 3.00 04/26/17 08:00 91 04/26/17 08:00 98.0 15 162/71 (101) Intake and Output 04/26/17 04/26/17 04/27/17 08:00 16:00 00:00 Intake Total 1364.2 ml Output Total 752 ml Balance 612.2 ml Result Diagram: 04/26/1760404/26/17 06 Imaging Last Impressions Renal Ultrasound 04/24/17 0000 Signed Impressions: Service Date/Time: Monday, April 24, 2017 10:26 - CONCLUSION: Unremarkable kidneys. Bladder totally decompressed. Darin Nuñez Jr., MD Chest X-Ray 04/24/17 0000 Signed Impressions: Service Date/Time: Monday, April 24, 2017 20:42 - CONCLUSION: 1. Persistent left basilar consolidation/effusion. 2. Left-sided thoracostomy tube without pneumothorax. 3. Mild, deep tissue emphysematous changes about the left hemithorax Amilcar Barr MD Chest CT 04/21/17 0000 Signed Impressions: Service Date/Time: Friday, April 21, 2017 01:50 - CONCLUSION: 1. The left-sided chest tube lies outside the thorax with the tip along the outer mid ribs. 2. Moderate to large left pneumothorax with mediastinal shift to the right. There is volume loss in the right hemithorax compared to the left however this is similar to on the prior CT. 3. Spiculated mass in the left upper lobe with underlying emphysema and scarring. 4. Small left effusion. These findings were called to Dr. Tucker in the emergency room immediately after the study was performed. Maxx Melchor MD Brain MRI 04/21/17 0000 Signed Impressions: Service Date/Time: Friday, April 21, 2017 20:29 - CONCLUSION: 1. Moderate severity atrophy. 2. No evidence of metastatic disease to the brain. Darin Dimas MD Objective Remarks GENERAL: Patient is lying in bed in NAD SKIN: Warm and dry. HEAD: Normocephalic. EYES: No scleral icterus. No injection or drainage. NECK: Supple, trachea midline. No JVD or lymphadenopathy. CARDIOVASCULAR: Regular rate and rhythm without murmurs, gallops, or rubs. RESPIRATORY: Breath sounds equal bilaterally. No accessory muscle use. Left chest tube is dislodged GASTROINTESTINAL: Abdomen soft, non-tender, nondistended. MUSCULOSKELETAL: No cyanosis, or edema. Neuro: Awake and alert, oriented. No focal deficits Urinary Catheter: Yes Assessment to: Continue A/P Assessment and Plan 82-year-old male with: Acute on chronic respiratory failure Recurrent Left pneumothorax following lung biopsy status post left-sided chest tube placement ( dislodged x2) COPD with possible COPD exacerbation CAD Lung cancer- Squamous cell ca Intermittent Delirium Acute kidney failure Plan: Neuro: Monitor neuro status. Avoid sedatives MRI brain 04/21 - no evidence of metastatic disease Morphine discontinued as per family request-causing delirium (Last dose given was on 04/23/17), continue PRN Lortab CV: Monitor HR and BP keep MAP>65mmHg On Hydralazine 50mg Q8 Pulm: Continue with oxygen keep sat >92% Bronchodilators, Prednisone 20mg daily 20Fr CT placed 04/23 for recurrent PTX CXR last night: CT is in place, no PTX, left basilar consolidation Pulm is following- Dr. Youssef. Hold Theophylline 300mg TID ( Level 24.8 this morning, recheck level tomorrow) GI/liver:On PO diet Renal/: Monitor renal function, electrolytes replacement per protocol. Renal function worse today with Cr: 5.34, BUN 72. UOP: 1.4L in 24hrs On Albumin Q12, Fenoldopam per renal- Dr. Montana NS@100 ml/hr. Renal US unremarkable. ID: Monitor for signs of infections ( Fever, WBC) Heme: Monitor CBC, Onc is following-Stage 1A lung ca, definitive radiation therapy once patient discharged Endo: SSI for glycemic control Heme follow CBC Prophylaxis: Pepcid/SCDs/heparin. Level 3 Son was upset and angry that patient received morphine despite family request. I reviewed the EMR along with rn discharge Chelsea Palacio. Last dose of Morphine was on 04/23/17. I explained this to son at the bedside and also conference called with son Hernandez in [place]. Morphine was removed from the EMR and marked as allergic. I also explained to the son at bedside that he is raising his voice to me and the nursing staff and this is being perceived as threatening behavior. He states that his raising of voice is how he deals with a frustrating situation like this. Disha Ng MD Apr 26, 2017 11:33
[2017-04-26] MEDS ORDERED: ACETAMINOPHEN/HYDROcodone 325 MG/5 MG TAB PO PRN (13:30)
--- NOTE | 2017-04-26 14:21 | HHI.NPPN ---
Subjective History of Present Illness 82 year old with ARF, Lung Ca, CT in place for PTX Review of Systems General Constitutional: Fatigue Objective Data Data 04/26/17 04/27/17 19:00 07:00 Intake Total 24 ml Balance 24 ml IV Total 24 ml Vital Signs Date Time Temp Pulse Resp B/P (MAP) Pulse Ox O2 Delivery O2 Flow Rate FiO2 04/26/17 12:00 98.1 100 18 146/68 (94) 100 04/26/17 12:00 100 04/26/17 10:00 91 04/26/17 08:44 97 Nasal Cannula 3.00 04/26/17 08:00 91 04/26/17 08:00 98.0 91 15 162/71 (101) 97 04/26/17 07:00 97 Nasal Cannula 3.00 04/26/17 06:00 88 15 192/88 (122) 97 04/26/17 06:00 88 04/26/17 05:00 88 21 170/77 (108) 98 04/26/17 04:00 98 04/26/17 04:00 98.7 98 19 168/72 (104) 96 04/26/17 03:00 104 31 154/72 (99) 97 04/26/17 02:00 99 04/26/17 02:00 99 18 138/80 (99) 96 04/26/17 01:00 99 16 150/65 (93) 96 04/26/17 00:00 98.5 107 15 163/68 (99) 96 04/26/17 00:00 107 04/25/17 23:00 109 17 175/73 (107) 96 04/25/17 22:00 106 04/25/17 22:00 106 16 189/86 (120) 95 04/25/17 21:00 104 14 170/77 (108) 95 04/25/17 20:00 124 04/25/17 20:00 124 41 169/79 (109) 98 04/25/17 19:37 99 Nasal Cannula 3.00 04/25/17 19:00 98 Nasal Cannula 3.00 04/25/17 19:00 93 15 181/77 (111) 98 04/25/17 18:00 95 04/25/17 18:00 95 13 168/88 (114) 96 04/25/17 17:00 96 15 182/74 (110) 95 04/25/17 17:00 96 04/25/17 16:00 98 17 170/73 (105) 95 04/25/17 16:00 98 04/25/17 15:00 106 20 162/77 (105) 96 04/25/17 15:00 106 -: 04/26/17 0605 04/26/17 0605 Physical Exam General Appearance: Well Developed, Well Nourished Neck Neck Exam: Neck Supple Pulmonary Resp Exam: Decreased Bases Cardiology CV Exam: Regular Gastrointestinal/Abdomen GI Exam: Soft, Non-Tender, Bowel Sounds Present Extremeties Extremities Exam: No Edema Assessment/Plan Problem List: (1) Acute renal failure ICD Codes: N17.9 - Acute kidney failure, unspecified Plan: Fenoldopam can be increased UOP improved try for 1 more day Cr higher d/ w with Pharmacy the perfusion to the kidney ,increase UOP non oliguric insert Jack HTN need better control follow BMP (2) Hypertension ICD Codes: I10 - Essential (primary) hypertension Plan: Given a trial of fenoldopam (3) Pneumothorax after biopsy ICD Codes: J95.811 - Postprocedural pneumothorax Status: Acute Plan: Chest tube in place (4) Lung mass ICD Codes: R91.8 - Other nonspecific abnormal finding of lung field Status: Acute Plan: Pulmonary is following for squamous cell lung cancer Problem Qualifiers (1) Acute renal failure: Qualified Codes: N17.9 - Acute kidney failure, unspecified (2) Hypertension: Qualified Codes: I10 - Essential (primary) hypertension Eric Montana MD Apr 26, 2017 14:21
--- NOTE | 2017-04-26 14:58 | RADRPT ---
EXAM DATE/TIME: 04/26/2017 14:05 [facility] COMPARISON: CHEST SINGLE AP, April 26, 2017, 3:53. INDICATIONS : Post chest tube removal. MEDICAL HISTORY : Hypercholesterolemia. Lung mass. Thyroid disease. Hypertension. Glaucoma. COPD. Dyspnea. Renal diseas e. Prostate seeding. Diabetes. Prostate cancer. MRSA SURGICAL HISTORY : Bilateral cataract removal. Discectomy and fusion. ENCOUNTER: Subsequent ACUITY: 1 week PAIN SCORE: 0/10 LOCATION: Left chest FINDINGS: There is no pneumothorax. Thoracic aorta is tortuous and uncoiled. Minimal parietal changes left ba se. There is no failure. CONCLUSION: Negative for pneumothorax. Yehuda Reyes MD FACR on April 26, 2017 at 14:56 Board Certified Radiologist. This report was verified electronically.
[2017-04-26] MEDS: RESP: ALBUTEROL 2.5 MG/IPRATROPIUM 0.5 MG NEB (SCH) NEB ×2 (15:53→19:49)
[2017-04-26 18:03] LABS: BACTERIA, URINE MANY /hpf; BLOOD, URINE MOD (NEG); GLUCOSE,URINE NEG (NEG); KETONE, URINE NEG (NEG); MUCUS URINE FEW /lpf (OCC); NITRITE,URINE NEG (NEG); SQUAMOUS EPITHELIAL CELL URINE 1 /hpf (0-5); URINE COLOR YELLOW (YELLW/STRAW)
[2017-04-26 18:08] LABS: COMMENT (UR) CATH-CULTURE IND; CULTURE IF INDICATED CATH CULTURE IND
[2017-04-26] MEDS: traZODone HCL 50 MG TAB PO SCH (21:00)
[2017-04-26] MEDS: LATANOPROST 0.005% OPHT SOLN 2.5 ML BTL EACH EYE SCH (21:00)
[2017-04-27] VITALS (15 sets, daily range): BP systolic 125–180; BP diastolic 60–92; PULSE 84–102; RESP 12–27; TEMP 98.5–99.8; O2SAT 92–100
[2017-04-27] MEDS: CHLORHEXIDINE GLUCONATE 2 % 1 PACK (2 CLOTHS) TOP SCH (04:00)
[2017-04-27] MEDS: [UNRECOGNIZED DRUG - OTHER] IV SCH ×3 (04:44→07:31)
[2017-04-27] MEDS: SODIUM CHLORIDE 0.9% IV SCH ×3 (04:44→07:31)
[2017-04-27] MEDS: ALBUMIN 25% INJ 50 ML IV SCH ×2 (05:14→17:18)
[2017-04-27] MEDS: LEVOTHYROXINE SODIUM 25 MCG TAB PO SCH (05:15)
[2017-04-27] MEDS: SODIUM CHLOR 0.9% 1000 ML INJ 1,000 ML IV SCH ×2 (05:15→16:46)
[2017-04-27] MEDS: hydrALAZINE HCL 50 MG TAB PO SCH (05:15)
[2017-04-27] MEDS: HEPARIN SODIUM - SQ 10,000 UNITS/ML VIAL SQ SCH ×2 (05:15→17:18)
--- NOTE | 2017-04-27 05:43 | RADRPT ---
EXAM DATE/TIME: 04/27/2017 04:19 [facility] COMPARISON: CHEST SINGLE AP, April 26, 2017, 14:05. INDICATIONS : Shortness of breath, possible pulmonary disease. MEDICAL HISTORY : Hypercholesterolemia. Hypertension Chronic obstructive pulmonary disease. Diabetes, Prostate Ca R enal disease. SURGICAL HISTORY : None. ENCOUNTER: Subsequent ACUITY: 1 week PAIN SCORE: Non-responsive. LOCATION: Bilateral chest FINDINGS: The heart size is enlarged. There is increased density at the left base with silhouetting the left he midiaphragm. The right lung is grossly clear. There does appear to be widening of the thoracic aorta. CONCLUSION: Increased density the left base likely related to some degree of atelectasis or consolidation. Some d egree of effusion cannot be excluded. Hernandez Sparks MD on April 27, 2017 at 5:40 Board Certified Radiologist. This report was verified electronically.
[2017-04-27 06:53] LABS: AUTOMATED NEUTROPHIL # 6.9 TH/MM3 (1.8-7.7); BASOPHIL % 0.1 % (0.0-2.0); EOSINOPHIL % 0.3 % (0.0-4.0); HEMATOCRIT 31.4 % (39.0-51.0); HEMO FLAGS DIFF FINAL; LYMPH % 7.8 % (9.0-44.0); LYMPHOCYTE # 0.7 TH/MM3 (1.0-4.8); MEAN CELL VOLUME 88.1 FL (80.0-100.0); MEAN CORPUSCULAR HEMOGLOBIN 27.8 PG (27.0-34.0); MEAN CORPUSCULAR HGB CONC 31.6 % (32.0-36.0); MONO % 11.6 % (0.0-8.0); NEUT % 80.2 % (16.0-70.0); PLATELET COUNT 219 TH/MM3 (150-450); RED BLOOD COUNT 3.56 MIL/MM3 (4.50-5.90); WHITE BLOOD COUNT 8.6 TH/MM3 (4.0-11.0)
[2017-04-27 07:11] LABS: ANION GAP 9 MEQ/L (5-15); AST (GOT) 17 U/L (15-37); BICARBONATE 23.1 MEQ/L (21.0-32.0); BLOOD UREA NITROGEN 75 MG/DL (7-18); CHLORIDE 113 MEQ/L (98-107); GLOMERULAR FILTRATION RATE 13 ML/MIN (>89); MAGNESIUM 1.7 MG/DL (1.5-2.5); POTASSIUM 4.4 MEQ/L (3.5-5.1); SODIUM (NA) 145 MEQ/L (136-145)
[2017-04-27 07:15] LABS: ALKALINE PHOSPHATASE 42 U/L (45-117); ALT (GPT) 20 U/L (12-78); TOTAL BILIRUBIN ADULT 0.3 MG/DL (0.2-1.0)
[2017-04-27] MEDS: INSULIN ASPART SUPPLEMENTAL SCALE SQ SCH ×4 (08:00→19:56)
[2017-04-27] MEDS: CHLORHEXIDINE 0.12% (ORAL KIT) 15 ML CUP MT SCH ×2 (08:00→20:00)
[2017-04-27] MEDS: RESP: ALBUTEROL 2.5 MG/IPRATROPIUM 0.5 MG NEB (SCH) NEB ×4 (08:02→20:07)
--- NOTE | 2017-04-27 08:10 | HHI.CCPN ---
Subjective Remarks/Hospital Course is a 82-year-old male with a past medical history of hypertension, hyperlipidemia, diabetes, COPD, prostate cancer, kidney stones, hypothyroidism, neuropathy, and recently diagnosed lung cancer. Patient has a history of COPD and had a routine chest x-ray done which had an incidental finding of lung nodule. He had a lung biopsy done previously, however not enough cells were collected to properly determine staging per son. Patient had a repeat lung biopsy on 04/17 however after the procedure was completed an x-ray done shortly after revealed a small left pneumothorax. IR was made aware, but held off on placing chest tube due to concern for blebs. He was admitted by the hospitalist service at that time and was subsequently discharged home. Patient uses 2-3 L O2 nasal cannula at home. Patient presented back to the ER on 04/20 night with worsening shortness of breath and a chest x-ray revealed a large left pneumothorax for which a 20 [place] chest tube was placed by ER physician with initial air leak with subsequently stopped with improvement in patient's respiratory status and O2 sats. He was weaned down from a nonrebreather to 6 L nasal cannula however postprocedure chest x-ray still shows residual pneumothorax on the right with chest tube tip appearing to be inside pleural cavity. Patient was accepted for admission by critical care medicine service and I evaluated the patient while he was in the ER. He states that his breathing has improved somewhat however he is still short of breath. He was on 6 L nasal cannula at the time of my evaluation and could speak in complete sentences. Patient also has a history of chronic left sided flank pain, son reports this is chronic and that has had workup to try and determine cause, but no clear answer has been identified. He also complains of numbness in his legs related to diabetic neuropathy. 04/22 Patient is on 3L oxygen with good sats. Chest tube dislodged overnight CXR showed no PTX . Afebrile. MRI brain last night no evidence of metastatic disease. 04/23 Patient was agitated, combative yesterday given Halol, Ativan and placed on Precedex drip. 04/24 Patient is off Precedex drip. Awake and alert. 20Fr CT was placed on left yesterday for recurrent PTX. Renal function is worse today with Cr: 3.99 from 2.15 04/25 Patient is lying in bed in NAD. CXR last night showed no evidence of PTX, CT is in good position, left basilar consolidation. . Renal function worse today with Cr: 4.93, UOP: 1150 ml in 24hrs 04/26: Lying in bed no respiratory distress. L chest tube is displaced, but no pneumothorax. Removed at bedside. CXR in am did not show any pneumothorax. BUN/ creat 72/5.34. UO 1.4 L in 24 hours. 04/27: No acute events overnight, patient is alert awake oriented 3. Breathing comfortably on nasal cannula. Chest x-ray shows slightly increased left lower lobe infiltrate, low-grade fever Tmax 100.4. Start empiric cefepime renally adjusted. Intermittently hypotensive we'll increase hydralazine 200 mg by mouth every 8 hours Objective Vital Signs Date Time Temp Pulse Resp B/P (MAP) Pulse Ox O2 Delivery O2 Flow Rate FiO2 04/27/17 07:00 Nasal Cannula 3.00 60 04/27/17 06:00 84 04/27/17 04:00 99.8 12 125/60 (81) 96 Intake and Output 04/27/17 04/27/17 04/28/17 08:00 16:00 00:00 Intake Total 1400 ml Output Total 850 ml Balance 550 ml Result Diagram: 04/27/17 0535 04/27/17 0535 Imaging Last Impressions Renal Ultrasound 04/24/17 0000 Signed Impressions: Service Date/Time: Monday, April 24, 2017 10:26 - CONCLUSION: Unremarkable kidneys. Bladder totally decompressed. Darin Nuñez Jr., MD Chest X-Ray 04/24/17 0000 Signed Impressions: Service Date/Time: Monday, April 24, 2017 20:42 - CONCLUSION: 1. Persistent left basilar consolidation/effusion. 2. Left-sided thoracostomy tube without pneumothorax. 3. Mild, deep tissue emphysematous changes about the left hemithorax Amilcar Barr MD Chest CT 04/21/17 0000 Signed Impressions: Service Date/Time: Friday, April 21, 2017 01:50 - CONCLUSION: 1. The left-sided chest tube lies outside the thorax with the tip along the outer mid ribs. 2. Moderate to large left pneumothorax with mediastinal shift to the right. There is volume loss in the right hemithorax compared to the left however this is similar to on the prior CT. 3. Spiculated mass in the left upper lobe with underlying emphysema and scarring. 4. Small left effusion. These findings were called to Dr. Tucker in the emergency room immediately after the study was performed. Maxx Melchor MD Brain MRI 04/21/17 0000 Signed Impressions: Service Date/Time: Friday, April 21, 2017 20:29 - CONCLUSION: 1. Moderate severity atrophy. 2. No evidence of metastatic disease to the brain. Darin Dimas MD Objective Remarks GENERAL: Patient is lying in bed in NAD SKIN: Warm and dry. HEAD: Normocephalic. EYES: No scleral icterus. No injection or drainage. NECK: Supple, trachea midline. No JVD or lymphadenopathy. CARDIOVASCULAR: Regular rate and rhythm without murmurs, gallops, or rubs. Intermittently hypertensive RESPIRATORY: Breath sounds equal bilaterally. No accessory muscle use. GASTROINTESTINAL: Abdomen soft, non-tender, nondistended. MUSCULOSKELETAL: No cyanosis, or edema. Neuro: Awake and alert, oriented. No focal deficits. Moves all extremities equally A/P Assessment and Plan 82-year-old male with: Acute on chronic respiratory failure Recurrent Left pneumothorax following lung biopsy status post left-sided chest tube placement ( dislodged x2) COPD with possible COPD exacerbation Hypertension poorly controlled Acute kidney failure Intermittent Delirium CAD Lung cancer- Squamous cell ca LLL infiltrate ? pneumonia Plan: Neuro: Monitor neuro status. Avoid sedatives MRI brain 04/21 - no evidence of metastatic disease, but moderate to severe atrophy Morphine discontinued as per family request on 04/26/17-causing delirium (Last dose given was on 04/23/17), continue PRN Lortab No clinical evidence of delirium today 04/27/17 PT OOB CV: Monitor HR and BP keep MAP>65mmHg On Hydralazine 50mg Q8-increase to 100 mg po q8h Pulm: Continue with oxygen keep sat >92% Bronchodilators, Prednisone 20mg daily 20Fr CT placed 04/23 for recurrent PTX disoldged and removed 04/26/17 , no PTX CXR 04/27 left basilar consolidation. Pulm is following- Dr. Youssef. Holding Theophylline 300mg TID ( Level 24.8 down to 10.9) GI/liver:On PO diet Renal/: Monitor renal function, electrolytes replacement per protocol. Renal function - Cr: 5.2, BUN 75. UOP: 1.4L in 24hrs On Albumin Q12, Fenoldopam per renal- Dr. Montana NS@100 ml/hr. Renal US unremarkable. ID: Monitor for signs of infections ( Fever, WBC), CXR persistent left lower lobe infiltrate low-grade fevers started on cefepime today 04/27/17 Heme: Monitor CBC, Onc is following-Stage 1A lung ca, definitive radiation therapy once patient discharged Endo: SSI for glycemic control Heme follow CBC Prophylaxis: Pepcid/SCDs/heparin. Level 3 04/26/17: Son was upset and angry that patient received morphine despite family request. I reviewed the EMR along with lost charge card clerk Chelsea Palacio. Last dose of Morphine was on 04/23/17. I explained this to son at the bedside and also conference called with son Hernandez in [employer]. Morphine was removed from the EMR and marked as allergic. I also explained to the son at bedside that he is raising his voice to me and the nursing staff and this is being perceived as threatening behavior. He states that his raising of voice is how he deals with a frustrating situation like this. Disha Ng MD Apr 27, 2017 08:10
[2017-04-27] MEDS: SODIUM CHLORIDE 0.9% FLUSH 10 ML FLUSH IV FLUSH SCH ×2 (08:59→20:17)
[2017-04-27] MEDS: PRAVASTATIN SOD 40 MG TAB PO SCH (08:59)
[2017-04-27] MEDS: CYANOCOBALAMIN 1,000 MCG TAB PO SCH (08:59)
[2017-04-27] MEDS: ALLOPURINOL 100 MG TAB PO SCH (08:59)
[2017-04-27] MEDS: FAMOTIDINE 20 MG/2 ML VIAL IV PUSH SCH ×2 (08:59→20:17)
[2017-04-27] MEDS: BRIMONIDINE TARTRATE 0.2% OPHT SOLN 5 ML BTL EACH EYE SCH ×2 (09:00→20:17)
[2017-04-27] MEDS: hydrALAZINE HCL 20 MG/ML VIAL IV PUSH PRN (09:16)
[2017-04-27] MEDS: CEFEPIME INJ 1,000 MG in SODIUM CHLORIDE 0.9% INJ 100 ML IV SCH (10:00)
--- NOTE | 2017-04-27 11:36 | HHI.NPPN ---
Subjective History of Present Illness 82 year old with ARF, Lung Ca, CT in place for PTX Review of Systems General Constitutional: Fatigue Objective Data Data Vital Signs Date Time Temp Pulse Resp B/P (MAP) Pulse Ox O2 Delivery O2 Flow Rate FiO2 04/27/17 10:00 97 04/27/17 08:03 97 Nasal Cannula 3.00 04/27/17 08:00 97 04/27/17 08:00 99.0 84 16 174/79 (110) 97 04/27/17 07:00 Nasal Cannula 3.00 60 04/27/17 06:00 84 04/27/17 04:00 89 04/27/17 04:00 99.8 85 12 125/60 (81) 96 04/27/17 02:00 91 04/27/17 00:00 90 04/27/17 00:00 99.7 91 15 147/92 (110) 96 04/26/17 22:00 107 04/26/17 20:00 100.4 106 24 175/97 (123) 97 04/26/17 20:00 101 04/26/17 19:49 94 Nasal Cannula 3.00 04/26/17 19:00 98 Nasal Cannula 3.00 04/26/17 18:00 106 04/26/17 16:00 97 04/26/17 16:00 99.0 97 16 147/67 (93) 96 04/26/17 14:00 95 04/26/17 12:00 98.1 100 18 146/68 (94) 100 04/26/17 12:00 100 -: 04/27/17 0535 04/27/17 0535 Microbiology 04/26/17 Aerobic Blood Culture - Preliminary, Resulted NO GROWTH IN 1 DAY 04/26/17 Anaerobic Blood Culture - Preliminary, Resulted NO GROWTH IN 1 DAY 04/26/17 Aerobic Blood Culture - Preliminary, Resulted NO GROWTH IN 1 DAY 04/26/17 Anaerobic Blood Culture - Preliminary, Resulted NO GROWTH IN 1 DAY 04/26/17 Urine Culture, Received Pending Physical Exam General Appearance: Well Developed, Well Nourished Neck Neck Exam: Neck Supple Pulmonary Resp Exam: Decreased Bases Cardiology CV Exam: Regular Gastrointestinal/Abdomen GI Exam: Soft, Non-Tender, Bowel Sounds Present Extremeties Extremities Exam: No Edema Assessment/Plan Problem List: (1) Acute renal failure ICD Codes: N17.9 - Acute kidney failure, unspecified Plan: Fenoldopam will be done after today I discussed Cr declined UOP good we will stop it after today Son got all upset and stating he is better with medications there is still a chance for dialysis as his Cr is not getting better significantly non oliguric restart Metoprolol stop Fenoldopam after this bag HTN need better control follow BMP son remained argumentative even though I stated do not ask hypothetical questions he keep insisting what other medications is out there to reverse ARF, I told him that Fenoldopam was used for short period of time, he acknowledges that and stated he saw mixed results, I told him the same used for 24-48 hrs then stop I discussed hemodialysis in case he has no improvement\ then he brought his urine flow never dropped and I stated that was why I was consulted he stated you are wrong he was peeing in bed and I called Rubin to explain, he continue to be confrontational (2) Hypertension ICD Codes: I10 - Essential (primary) hypertension Plan: Given a trial of fenoldopam (3) Pneumothorax after biopsy ICD Codes: J95.811 - Postprocedural pneumothorax Status: Acute Plan: Chest tube in place (4) Lung mass ICD Codes: R91.8 - Other nonspecific abnormal finding of lung field Status: Acute Plan: Pulmonary is following for squamous cell lung cancer Problem Qualifiers (1) Acute renal failure: Qualified Codes: N17.9 - Acute kidney failure, unspecified (2) Hypertension: Qualified Codes: I10 - Essential (primary) hypertension Eric Montana MD Apr 27, 2017 11:36
[2017-04-27] MEDS ORDERED: SODIUM CHLORIDE 0.9% IV SCH (13:00)
[2017-04-27] MEDS ORDERED: [UNRECOGNIZED DRUG - OTHER] IV SCH (13:00)
[2017-04-27] MEDS: hydrALAZINE HCL 100 MG TAB PO SCH ×2 (14:50→22:52)
[2017-04-27] MEDS: METOPROLOL TARTRATE 50 MG TAB PO SCH (20:17)
[2017-04-27] MEDS: traZODone HCL 50 MG TAB PO SCH (20:17)
[2017-04-27] MEDS: LATANOPROST 0.005% OPHT SOLN 2.5 ML BTL EACH EYE SCH (20:17)
[2017-04-28] VITALS (14 sets, daily range): BP systolic 131–168; BP diastolic 66–87; PULSE 79–91; RESP 16–39; TEMP 98.2–99; O2SAT 98–100
[2017-04-28] MEDS: CHLORHEXIDINE GLUCONATE 2 % 1 PACK (2 CLOTHS) TOP SCH (04:00)
[2017-04-28] MEDS: SODIUM CHLOR 0.9% 1000 ML INJ 1,000 ML IV SCH ×2 (05:47→12:46)
[2017-04-28] MEDS: hydrALAZINE HCL 100 MG TAB PO SCH ×3 (05:48→21:11)
[2017-04-28] MEDS: HEPARIN SODIUM - SQ 10,000 UNITS/ML VIAL SQ SCH ×2 (05:48→18:00)
[2017-04-28] MEDS: ALBUMIN 25% INJ 50 ML IV SCH (05:48)
[2017-04-28] MEDS: LEVOTHYROXINE SODIUM 25 MCG TAB PO SCH (05:48)
[2017-04-28 06:04] LABS: AUTOMATED NEUTROPHIL # 4.5 TH/MM3 (1.8-7.7); BASOPHIL % 0.3 % (0.0-2.0); EOSINOPHIL # 0.3 TH/MM3 (0-0.4); EOSINOPHIL % 4.8 % (0.0-4.0); HEMATOCRIT 31.7 % (39.0-51.0); HEMO FLAGS DIFF FINAL; LYMPH % 11.5 % (9.0-44.0); LYMPHOCYTE # 0.8 TH/MM3 (1.0-4.8); MEAN CELL VOLUME 88.2 FL (80.0-100.0); MEAN CORPUSCULAR HEMOGLOBIN 28.5 PG (27.0-34.0); MEAN CORPUSCULAR HGB CONC 32.4 % (32.0-36.0); MONO % 17.5 % (0.0-8.0); NEUT % 65.9 % (16.0-70.0); PLATELET COUNT 212 TH/MM3 (150-450); RED CELL DISTRIBUTION WIDTH 15.2 % (11.6-17.2); WHITE BLOOD COUNT 6.8 TH/MM3 (4.0-11.0)
[2017-04-28 06:21] LABS: ALT (GPT) 23 U/L (12-78); ANION GAP 6 MEQ/L (5-15); AST (GOT) 19 U/L (15-37); BICARBONATE 22.6 MEQ/L (21.0-32.0); BLOOD UREA NITROGEN 75 MG/DL (7-18); CHLORIDE 115 MEQ/L (98-107); GLOMERULAR FILTRATION RATE 12 ML/MIN (>89); MAGNESIUM 1.6 MG/DL (1.5-2.5); POTASSIUM 4.5 MEQ/L (3.5-5.1); SODIUM (NA) 144 MEQ/L (136-145)
[2017-04-28 06:23] LABS: ALKALINE PHOSPHATASE 42 U/L (45-117); TOTAL BILIRUBIN ADULT 0.4 MG/DL (0.2-1.0)
[2017-04-28] MEDS: CHLORHEXIDINE 0.12% (ORAL KIT) 15 ML CUP MT SCH ×2 (08:00→20:00)
[2017-04-28] MEDS: INSULIN ASPART SUPPLEMENTAL SCALE SQ SCH ×4 (08:00→21:00)
[2017-04-28] MEDS: RESP: ALBUTEROL 2.5 MG/IPRATROPIUM 0.5 MG NEB (SCH) NEB ×4 (08:28→19:52)
[2017-04-28] MEDS: PRAVASTATIN SOD 40 MG TAB PO SCH (09:00)
[2017-04-28] MEDS: ALLOPURINOL 100 MG TAB PO SCH (09:00)
[2017-04-28] MEDS: CYANOCOBALAMIN 1,000 MCG TAB PO SCH (09:00)
[2017-04-28] MEDS: BRIMONIDINE TARTRATE 0.2% OPHT SOLN 5 ML BTL EACH EYE SCH ×2 (09:01→21:00)
[2017-04-28] MEDS: FAMOTIDINE 20 MG/2 ML VIAL IV PUSH SCH ×2 (09:01→21:10)
[2017-04-28] MEDS: CEFEPIME INJ 1,000 MG in SODIUM CHLORIDE 0.9% INJ 100 ML IV SCH (09:02)
[2017-04-28] MEDS: SODIUM CHLORIDE 0.9% FLUSH 10 ML FLUSH IV FLUSH SCH ×2 (09:02→21:10)
[2017-04-28] MEDS: METOPROLOL TARTRATE 50 MG TAB PO SCH ×2 (09:18→21:10)
[2017-04-28] MEDS ORDERED: SODIUM CHLOR 0.9% 1000 ML INJ 1,000 ML OTHER PRN ×2 (13:16)
[2017-04-28] MEDS ORDERED: SODIUM CHLOR 0.9% 1000 ML INJ 1,000 ML IV PRN (13:16)
--- NOTE | 2017-04-28 13:22 | HHI.NPPN ---
Subjective History of Present Illness 82 year old with ARF, Lung Ca, CT in place for PTX Review of Systems General Constitutional: Fatigue Objective Data Data Vital Signs Date Time Temp Pulse Resp B/P (MAP) Pulse Ox O2 Delivery O2 Flow Rate FiO2 04/28/17 12:00 98.5 80 18 133/73 (93) 100 04/28/17 12:00 79 04/28/17 10:00 79 04/28/17 08:30 98 Nasal Cannula 2.00 04/28/17 08:00 79 04/28/17 08:00 98.5 85 16 148/87 (107) 100 04/28/17 07:00 Nasal Cannula 3.00 60 04/28/17 06:00 86 04/28/17 04:00 86 04/28/17 04:00 99.0 86 39 168/87 (114) 100 04/28/17 02:00 86 04/28/17 00:00 91 04/28/17 00:00 99.0 91 18 131/66 (87) 99 04/27/17 22:00 96 04/27/17 20:13 100 Nasal Cannula 3.00 04/27/17 20:00 94 04/27/17 20:00 99.1 94 21 168/80 (109) 100 04/27/17 19:00 100 Nasal Cannula 3.00 04/27/17 18:00 97 04/27/17 16:06 94 Nasal Cannula 3.00 04/27/17 16:00 98.5 102 27 92 04/27/17 16:00 97 04/27/17 14:00 97 -: 04/28/17 0539 04/28/17 0539 Physical Exam General Appearance: Well Developed, Well Nourished Neck Neck Exam: Neck Supple Pulmonary Resp Exam: Decreased Bases Cardiology CV Exam: Regular Gastrointestinal/Abdomen GI Exam: Soft, Non-Tender, Bowel Sounds Present Extremeties Extremities Exam: No Edema Assessment/Plan Problem List: (1) Acute renal failure ICD Codes: N17.9 - Acute kidney failure, unspecified Plan: I have discussed with patient he has no improvement and need dialysis , he will need a Vascath today and dialysis to be initiated soon possible am KVO fluids he is agreeable to the plan continue supportive care Invasive Radiology consult for Vascath check PT/INR Lasix 40 mg IV X 1 follow labs (2) Hypertension ICD Codes: I10 - Essential (primary) hypertension Plan: Given a trial of fenoldopam (3) Pneumothorax after biopsy ICD Codes: J95.811 - Postprocedural pneumothorax Status: Acute Plan: Chest tube in place (4) Lung mass ICD Codes: R91.8 - Other nonspecific abnormal finding of lung field Status: Acute Plan: Pulmonary is following for squamous cell lung cancer Problem Qualifiers (1) Acute renal failure: Qualified Codes: N17.9 - Acute kidney failure, unspecified (2) Hypertension: Qualified Codes: I10 - Essential (primary) hypertension Eric Montana MD Apr 28, 2017 13:22
[2017-04-28] MEDS ORDERED: cloNIDine HCL 0.1 MG TAB PO PRN (13:30)
[2017-04-28] MEDS ORDERED: NITROGLYCERIN 0.4 MG SL 25 TABS/BTL SL PRN (13:30)
[2017-04-28] MEDS ORDERED: GELATIN 12 MM/7 MM FOAM TOP PRN (13:30)
[2017-04-28] MEDS ORDERED: FUROSEMIDE 40 MG/4 ML VIAL IV PUSH ONE (13:30)
[2017-04-28] MEDS ORDERED: HEPARIN SODIUM - IV 10,000 UNITS/10 ML VIAL IV FLUSH PRN (13:30)
[2017-04-28] MEDS ORDERED: ACETAMINOPHEN 325 MG TAB PO PRN (13:30)
[2017-04-28] MEDS ORDERED: SODIUM CHLORIDE 0.9% FLUSH 10 ML FLUSH IV FLUSH PRN ×2 (13:30→18:45)
[2017-04-28] MEDS ORDERED: diphenhydrAMINE HCL 25 MG CAP PO PRN (13:30)
[2017-04-28] MEDS ORDERED: ALBUMIN 25% INJ 100 ML IV PRN (13:30)
[2017-04-28] MEDS ORDERED: MANNITOL 12.5 GM/50 ML VIAL IV PRN (13:30)
[2017-04-28] MEDS ORDERED: ONDANSETRON HCL 4 MG/2 ML VIAL IV PUSH PRN (13:30)
[2017-04-28 15:00] LABS: INTERNATIONAL NORMALIZED RATIO 1.1 RATIO; PROTHROMBIN TIME - PATIENT 11.4 SEC (9.8-11.6)
[2017-04-28] MEDS ORDERED: DOCUSATE SODIUM 50 MG/SENNA 8.6 MG TAB PO ONE (15:15)
[2017-04-28] MEDS ORDERED: LACTULOSE SYRUP 20 GM/30 ML CUP PO ONE (15:15)
[2017-04-28] MEDS ORDERED: POLYETHYLENE GLYCOL 17 GM PKG PO ONE (15:15)
[2017-04-28] MEDS ORDERED: GLYCERIN ADULT 2 GM SUPP RECTAL PRN (15:30)
[2017-04-28] MEDS ORDERED: GLYCERIN ADULT 2 GM SUPP RECTAL ONE (15:30)
--- NOTE | 2017-04-28 15:44 | HHI.CCPN ---
Subjective Remarks/Hospital Course is a 82-year-old male with a past medical history of hypertension, hyperlipidemia, diabetes, COPD, prostate cancer, kidney stones, hypothyroidism, neuropathy, and recently diagnosed lung cancer. Patient has a history of COPD and had a routine chest x-ray done which had an incidental finding of lung nodule. He had a lung biopsy done previously, however not enough cells were collected to properly determine staging per son. Patient had a repeat lung biopsy on 04/17 however after the procedure was completed an x-ray done shortly after revealed a small left pneumothorax. IR was made aware, but held off on placing chest tube due to concern for blebs. He was admitted by the hospitalist service at that time and was subsequently discharged home. Patient uses 2-3 L O2 nasal cannula at home. Patient presented back to the ER on 04/20 night with worsening shortness of breath and a chest x-ray revealed a large left pneumothorax for which a 20 [place] chest tube was placed by ER physician with initial air leak with subsequently stopped with improvement in patient's respiratory status and O2 sats. He was weaned down from a nonrebreather to 6 L nasal cannula however postprocedure chest x-ray still shows residual pneumothorax on the right with chest tube tip appearing to be inside pleural cavity. Patient was accepted for admission by critical care medicine service and I evaluated the patient while he was in the ER. He states that his breathing has improved somewhat however he is still short of breath. He was on 6 L nasal cannula at the time of my evaluation and could speak in complete sentences. Patient also has a history of chronic left sided flank pain, son reports this is chronic and that has had workup to try and determine cause, but no clear answer has been identified. He also complains of numbness in his legs related to diabetic neuropathy. 04/22 Patient is on 3L oxygen with good sats. Chest tube dislodged overnight CXR showed no PTX . Afebrile. MRI brain last night no evidence of metastatic disease. 04/23 Patient was agitated, combative yesterday given Halol, Ativan and placed on Precedex drip. 04/24 Patient is off Precedex drip. Awake and alert. 20Fr CT was placed on left yesterday for recurrent PTX. Renal function is worse today with Cr: 3.99 from 2.15 04/25 Patient is lying in bed in NAD. CXR last night showed no evidence of PTX, CT is in good position, left basilar consolidation. . Renal function worse today with Cr: 4.93, UOP: 1150 ml in 24hrs 04/26: Lying in bed no respiratory distress. L chest tube is displaced, but no pneumothorax. Removed at bedside. CXR in am did not show any pneumothorax. BUN/ creat 72/5.34. UO 1.4 L in 24 hours. 04/27: No acute events overnight, patient is alert awake oriented 3. Breathing comfortably on nasal cannula. Chest x-ray shows slightly increased left lower lobe infiltrate, low-grade fever Tmax 100.4. Start empiric cefepime renally adjusted. Intermittently hypotensive we'll increase hydralazine 200 mg by mouth every 8 hours Subjective 04/28: Currently afebrile. Complaining of abdominal pain likely secondary to constipation. No bowel movement 1 week. Requesting manual disimpaction. On nasal cannula Objective Vital Signs Date Time Temp Pulse Resp B/P (MAP) Pulse Ox O2 Delivery O2 Flow Rate FiO2 04/28/17 14:00 79 04/28/17 12:00 98.5 18 133/73 (93) 100 04/28/17 08:30 Nasal Cannula 2.00 04/28/17 07:00 60 Intake and Output 04/28/17 04/28/17 04/28/17 07:59 15:59 23:59 Intake Total 848 ml Output Total 700 ml Balance 148 ml Result Diagram: 04/28/17 0539 04/28/17 0539 Other Results Microbiology Date/Time Source Procedure Growth Status 04/26/17 15:10 Blood Peripheral Aerobic Blood Culture - Preliminary NO GROWTH IN 2 DAYS Resulted 04/26/17 15:10 Blood Peripheral Anaerobic Blood Culture - Preliminary NO GROWTH IN 2 DAYS Resulted 04/26/17 15:20 Urine Catheterized Urine Urine Culture - Final NO GROWTH IN 48 HOURS. Complete Imaging Last Impressions Chest X-Ray 04/27/17 0600 Signed Impressions: Service Date/Time: March 04:19 - CONCLUSION: Increased density the left base likely related to some degree of atelectasis or consolidation. Some degree of effusion cannot be excluded. Hernandez Sparks MD Renal Ultrasound 04/24/17 0000 Signed Impressions: Service Date/Time: Monday, April 24, 2017 10:26 - CONCLUSION: Unremarkable kidneys. Bladder totally decompressed. Darin Nuñez Jr., MD Chest CT 04/21/17 0000 Signed Impressions: Service Date/Time: Friday, April 21, 2017 01:50 - CONCLUSION: 1. The left-sided chest tube lies outside the thorax with the tip along the outer mid ribs. 2. Moderate to large left pneumothorax with mediastinal shift to the right. There is volume loss in the right hemithorax compared to the left however this is similar to on the prior CT. 3. Spiculated mass in the left upper lobe with underlying emphysema and scarring. 4. Small left effusion. These findings were called to Dr. Tucker in the emergency room immediately after the study was performed. Maxx Melchor MD Brain MRI 04/21/17 0000 Signed Impressions: Service Date/Time: Friday, April 21, 2017 20:29 - CONCLUSION: 1. Moderate severity atrophy. 2. No evidence of metastatic disease to the brain. Darin Dimas MD Objective Remarks GENERAL: This is an 82-year-old AA male currently resting in bed on nasal cannula SKIN: Warm and dry. HEAD: Normocephalic. EYES: No scleral icterus. No injection or drainage. NECK: Supple, trachea midline. No JVD or lymphadenopathy. CARDIOVASCULAR: Regular rate and rhythm without murmurs, gallops, or rubs. Intermittently hypertensive RESPIRATORY: Breath sounds equal bilaterally. No accessory muscle use. GASTROINTESTINAL: Abdomen protuberant. Tender palpation bilateral lower quadrants. No rigidity. Hypoactive bowel sounds. MUSCULOSKELETAL: 2+ bilateral upper and lower extremity edema Neuro: Awake and alert, oriented. No focal deficits. Moves all extremities equally A/P Assessment and Plan Neuro/Psych: Intermittent Delirium Glaucoma Monitor neuro status. Avoid sedatives MRI brain 04/21 - no evidence of metastatic disease, but moderate to severe atrophy Continue Brimonidine 0.2% 1 drop each twice a day and latanoprost 0.005% 1 drop each eye at night No clinical evidence of delirium today 04/28 Holding trazodone 50 mill grams daily/home medication CV: Hypertension Coronary artery disease Dyslipidemia Monitor HR and BP keep MAP>65mmHg On Hydralazine 50mg Q8-increase to 100 mg po q8h Continue normal saline at 30 cc an hour Holding lisinopril/adequate size 810/12.5 one tablet daily in light of acute injury On pravastatin 40 mg by mouth daily/home medication for dyslipidemia Pulm: Acute on chronic respiratory failure Recurrent Left pneumothorax following lung biopsy status post left-sided chest tube placement ( dislodged x2) COPD with possible COPD exacerbation Continue with oxygen keep sat >92% Bronchodilators, Prednisone 20mg daily 20Fr CT placed 04/23 for recurrent PTX disoldged and removed 04/26/17 , no PTX CXR 04/27 left basilar consolidation. Pulm is following- Dr. Youssef. Holding Theophylline 300mg TID ( Level 24.8 down to 10.9) GI/liver: Constipation On PO diet Famotidine for GI prophylaxis Docusate sodium/senna 1 tablet twice a day, MiraLAX daily and lactulose daily for GI prophylaxis. Glycerin suppositories and sepsis enema when necessary. Okay to mainly disimpact. KUB pending Renal/: Acute kidney injury Monitor renal function Will require hemodialysis today. IR Vas-Cath placement Renal US unremarkable. Avoid nephrotoxic drugs ID: Left lower lobe pneumonia question raul Monitor for signs of infections ( Fever, WBC), CXR persistent left lower lobe infiltrate low-grade fevers started on cefepime today 04/27/17 Heme: Lung cancer- non-small cell carcinoma lung Squamous cell ca stage IA [id number] Normocytic anemia Monitor CBC, Onc is following-Stage 1A lung ca, definitive radiation therapy once patient discharged Endo: Diabetes mellitus Hypothyroidism Holding glipizide 5 mill grams daily/home medication SSI for glycemic control Continue levothyroxine 25 mg daily/home medication Heme follow CBC Prophylaxis: Pepcid/SCDs/heparin. Level II follow-up Ajit Lloyd MD Apr 28, 2017 15:44
--- NOTE | 2017-04-28 17:39 | RADRPT ---
EXAM DATE/TIME: 04/28/2017 16:01 [facility] COMPARISON: No previous studies available for comparison. INDICATIONS : Patient complains of severe constipation. MEDICAL HISTORY : None. SURGICAL HISTORY : None. ENCOUNTER: Initial ACUITY: 1 day PAIN SCORE: 4/10 LOCATION: Abdomen FINDINGS: Scattered stool is seen throughout the colon. There is no significant small bowel distention. Exten sive degenerative changes lumbar spine. Prostate fiducials are noted. There is no free air. CONCLUSION: Scattered stool throughout the colon, nonspecific Negative for obstruction.. Yehuda Reyes MD FACR on April 28, 2017 at 17:36 Board Certified Radiologist. This report was verified electronically.
--- NOTE | 2017-04-28 17:48 | RADRPT ---
EXAM DATE/TIME: 04/28/2017 17:53 [place] COMPARISON: No previous studies available for comparison. INDICATIONS : Patient presents with acute renal failure in need of non tunneled dailysis catheter placement for da ilysis treatment. MEDICAL HISTORY : Hypertension Hyperlipidemia Diabetes COPD, uses oxygen at home 2-3L Prostate cancer S/P radiation Kidney stones Hypothyroidism Diabetic neuropathy Lung cancer SURGICAL HISTORY : Cataracta surgery Back surgery X5 with history of fusion ENCOUNTER: Subsequent ACUITY: 1 week PAIN SCORE: 8/10 LOCATION: Lower back pain. FLUORO TIME: 0.5 minutes IMAGE SERIES: 1 ACCESS: Right internal jugular vein MEDICATION(S): 1.) 2,200 units Heparin IV DEVICE(S): 1.) 14 [place] dual lumen 15 cm Schon catheter PROCEDURE : 1. Ultrasound guided venipuncture. 2. Fluoroscopic guidance. 3. Central line placement. The risks, benefits and alternatives to the procedure were explained and verbal and written consent w as obtained. The site was prepped in sterile fashion. Full sterile technique was used, including ca p, mask, sterile gloves and gown and a large sterile sheet. Hand hygiene and 2% chlorhexidine prep w as utilized per protocol for cutaneous antisepsis with appropriate dry time for site. Sterile gel an d sterile probe cover were utilized for ultrasound guidance. The skin and subcutaneous tissues were infiltrated with local anesthetic solution. A suitable site a yun the vein was selected with ultrasound and fluoroscopic guidance. A small incision was made. Th e vein was accessed under direct ultrasound visualization using the micropuncture technique. The kb ropuncture set was exchanged for a 0.035 wire. The tract was dilated. The catheter was advanced int o position under direct fluoroscopic visualization. The catheter was fixed in place with suture and a sterile dressing was applied. The patient tolerated the procedure well and there were no complications. CONCLUSION: Uncomplicated line placement as above. Hernandez Mondragon MD on April 28, 2017 at 17:46 Board Certified Radiologist. This report was verified electronically.
--- NOTE | 2017-04-28 18:35 | PD.RAD ---
Post Procedure Progress Note Pre Procedure Diagnosis: (1) Acute renal failure Post Procedure Diagnosis: (1) Acute renal failure Procedure Date: Apr 28, 2017 Supervising Radiologist: Hernandez Mondragon Proceduralist/Assist: RT Yoel(R)(CV) Anesthesia: Local Plan of Activity Patient to Unit: Nursing Unit Patient Condition: Good See PACS Report for procedural detail/treatment Central Venous Access Device Procedure 1 Right Internal Jugular Hemodialysis Catheter Non-Tunneled Placement dual lumen Canadian: 14 Additional Detail: 15 cm Schon XL Hernandez Mondragon MD Apr 28, 2017 18:35
[2017-04-28] MEDS ORDERED: HEPARIN SODIUM - IV 2,000 UNITS/2 ML VIAL IV FLUSH PRN (18:45)
[2017-04-28] MEDS: traZODone HCL 50 MG TAB PO SCH (21:10)
[2017-04-28] MEDS: LATANOPROST 0.005% OPHT SOLN 2.5 ML BTL EACH EYE SCH (21:10)
[2017-04-28] MEDS: DOCUSATE SODIUM 50 MG/SENNA 8.6 MG TAB PO SCH (21:10)
[2017-04-29] VITALS (25 sets, daily range): BP systolic 94–160; BP diastolic 51–105; PULSE 77–99; RESP 13–25; TEMP 98.2–98.7; O2SAT 98–100
[2017-04-29] MEDS: CHLORHEXIDINE GLUCONATE 2 % 1 PACK (2 CLOTHS) TOP SCH (04:00)
[2017-04-29 05:15] LABS: AUTOMATED NEUTROPHIL # 3.3 TH/MM3 (1.8-7.7); BASOPHIL % 0.6 % (0.0-2.0); EOSINOPHIL # 0.3 TH/MM3 (0-0.4); EOSINOPHIL % 5.8 % (0.0-4.0); HEMATOCRIT 31.6 % (39.0-51.0); HEMO FLAGS DIFF FINAL; LYMPH % 18.4 % (9.0-44.0); LYMPHOCYTE # 1.1 TH/MM3 (1.0-4.8); MEAN CELL VOLUME 87.6 FL (80.0-100.0); MEAN CORPUSCULAR HEMOGLOBIN 28.6 PG (27.0-34.0); MEAN CORPUSCULAR HGB CONC 32.6 % (32.0-36.0); MONO % 19.6 % (0.0-8.0); NEUT % 55.6 % (16.0-70.0); PLATELET COUNT 203 TH/MM3 (150-450); RED CELL DISTRIBUTION WIDTH 15.1 % (11.6-17.2)
[2017-04-29] MEDS: HEPARIN SODIUM - SQ 10,000 UNITS/ML VIAL SQ SCH ×2 (05:27→17:19)
[2017-04-29] MEDS: LEVOTHYROXINE SODIUM 25 MCG TAB PO SCH (05:27)
[2017-04-29] MEDS: hydrALAZINE HCL 100 MG TAB PO SCH ×3 (05:27→21:06)
[2017-04-29] MEDS: SODIUM CHLOR 0.9% 1000 ML INJ 1,000 ML IV SCH (05:27)
[2017-04-29 05:36] LABS: ANION GAP 10 MEQ/L (5-15); AST (GOT) 21 U/L (15-37); BICARBONATE 22.3 MEQ/L (21.0-32.0); BLOOD UREA NITROGEN 85 MG/DL (7-18); CHLORIDE 111 MEQ/L (98-107); GLOMERULAR FILTRATION RATE 12 ML/MIN (>89); MAGNESIUM 1.5 MG/DL (1.5-2.5); POTASSIUM 4.2 MEQ/L (3.5-5.1); SODIUM (NA) 143 MEQ/L (136-145)
[2017-04-29 05:37] LABS: ALT (GPT) 19 U/L (12-78)
[2017-04-29 05:39] LABS: ALKALINE PHOSPHATASE 43 U/L (45-117); TOTAL BILIRUBIN ADULT 0.4 MG/DL (0.2-1.0)
[2017-04-29] MEDS: RESP: ALBUTEROL 2.5 MG/IPRATROPIUM 0.5 MG NEB (SCH) NEB ×4 (07:47→19:39)
[2017-04-29] MEDS: CHLORHEXIDINE 0.12% (ORAL KIT) 15 ML CUP MT SCH ×2 (08:00→20:00)
[2017-04-29] MEDS: INSULIN ASPART SUPPLEMENTAL SCALE SQ SCH ×4 (08:00→21:00)
[2017-04-29] MEDS: CEFEPIME INJ 1,000 MG in SODIUM CHLORIDE 0.9% INJ 100 ML IV SCH (08:19)
[2017-04-29] MEDS: FAMOTIDINE 20 MG/2 ML VIAL IV PUSH SCH (08:19)
[2017-04-29] MEDS: LACTULOSE SYRUP 20 GM/30 ML CUP PO SCH (08:19)
[2017-04-29] MEDS: BRIMONIDINE TARTRATE 0.2% OPHT SOLN 5 ML BTL EACH EYE SCH ×2 (08:19→21:00)
[2017-04-29] MEDS: SODIUM CHLORIDE 0.9% FLUSH 10 ML FLUSH IV FLUSH SCH ×2 (08:19→21:09)
[2017-04-29] MEDS: PRAVASTATIN SOD 40 MG TAB PO SCH (08:20)
[2017-04-29] MEDS: POLYETHYLENE GLYCOL 17 GM PKG PO SCH (08:20)
[2017-04-29] MEDS: CYANOCOBALAMIN 1,000 MCG TAB PO SCH (08:20)
[2017-04-29] MEDS: DOCUSATE SODIUM 50 MG/SENNA 8.6 MG TAB PO SCH ×2 (08:20→21:09)
[2017-04-29] MEDS: METOPROLOL TARTRATE 50 MG TAB PO SCH ×2 (08:20→21:00)
[2017-04-29] MEDS: ALLOPURINOL 100 MG TAB PO SCH (08:33)
[2017-04-29] MEDS: HEPARIN SODIUM - IV 10,000 UNITS/10 ML VIAL PRN (09:11)
[2017-04-29] MEDS: EPOETIN ALFA 10,000 UNITS/ML VIAL IV PUSH PRN (09:12)
[2017-04-29] MEDS: GENTAMICIN SULFATE (DIALYSIS USE ONLY) 20 MG/2 ML VIAL OTHER PRN (09:12)
--- NOTE | 2017-04-29 11:15 | HHI.NPPN ---
Subjective History of Present Illness 82 year old with ARF, Lung Ca, CT in place for PTX Additional Remarks Patient seen during HD, with nasal cannula, alert, not in distress. Review of Systems General Constitutional: Fatigue Objective Data Data 04/29/17 04/30/17 19:00 07:00 Output Total 1000 ml Balance -1000 ml Hemodialysis 1000 ml Vital Signs Date Time Temp Pulse Resp B/P (MAP) Pulse Ox O2 Delivery O2 Flow Rate FiO2 04/29/17 11:00 87 20 122/64 (83) 100 04/29/17 10:00 86 04/29/17 10:00 86 22 115/58 (77) 99 04/29/17 09:01 88 23 137/68 (91) 100 04/29/17 08:01 98.7 81 20 134/68 (90) 99 04/29/17 08:00 82 04/29/17 07:48 98 Nasal Cannula 2.00 04/29/17 07:01 85 19 160/105 (123) 99 04/29/17 07:00 100 Nasal Cannula 2.00 04/29/17 06:02 80 19 155/78 (103) 100 04/29/17 06:00 81 04/29/17 05:00 80 19 138/78 (98) 99 04/29/17 04:00 98.5 79 13 131/67 (88) 98 04/29/17 04:00 79 04/29/17 02:00 77 04/29/17 00:00 79 04/29/17 00:00 98.2 79 17 140/73 (95) 99 04/28/17 22:00 85 04/28/17 20:00 81 04/28/17 20:00 98.2 81 161/80 (107) 100 04/28/17 19:53 100 Nasal Cannula 2.00 04/28/17 19:00 100 Nasal Cannula 2.00 04/28/17 18:00 79 04/28/17 16:00 79 04/28/17 16:00 98.4 87 18 167/70 (102) 100 04/28/17 14:00 79 04/28/17 12:00 98.5 80 18 133/73 (93) 100 04/28/17 12:00 79 -: 04/29/17 0447 04/29/17446 Physical Exam General Appearance: Well Developed, Well Nourished, Comfortable Neck Neck Exam: Neck Supple Pulmonary Resp Exam: Decreased Bases Cardiology CV Exam: Regular Gastrointestinal/Abdomen GI Exam: Soft, Non-Tender, Bowel Sounds Present Extremeties Extremities Exam: Trace Edema Neurologic Neuro Exam: Alert, Awake Psychiatric Psych Exam: Appropriate Responses Assessment/Plan Problem List: (1) Acute renal failure ICD Codes: N17.9 - Acute kidney failure, unspecified Plan: Patient he has no improvement and need dialysis , Vascath done. Patient has been non oliguric. BUN and Creatinine continue to increase. Started on HD after the Vascath. next HD in AM. 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
[2017-04-29] MEDS ORDERED: RESP: ALBUTEROL 2.5 MG/3 ML NEB (PRN) NEB (12:00)
[2017-04-29] MEDS ORDERED: MAGNESIUM SULFATE 1 GM PREMIX 100 ML IV ONE (12:00)
--- NOTE | 2017-04-29 12:08 | HHI.CCPN ---
Subjective Remarks/Hospital Course is a 82-year-old male with a past medical history of hypertension, hyperlipidemia, diabetes, COPD, prostate cancer, kidney stones, hypothyroidism, neuropathy, and recently diagnosed lung cancer. Patient has a history of COPD and had a routine chest x-ray done which had an incidental finding of lung nodule. He had a lung biopsy done previously, however not enough cells were collected to properly determine staging per son. Patient had a repeat lung biopsy on 04/17 however after the procedure was completed an x-ray done shortly after revealed a small left pneumothorax. IR was made aware, but held off on placing chest tube due to concern for blebs. He was admitted by the hospitalist service at that time and was subsequently discharged home. Patient uses 2-3 L O2 nasal cannula at home. Patient presented back to the ER on 04/20 night with worsening shortness of breath and a chest x-ray revealed a large left pneumothorax for which a 20 [place] chest tube was placed by ER physician with initial air leak with subsequently stopped with improvement in patient's respiratory status and O2 sats. He was weaned down from a nonrebreather to 6 L nasal cannula however postprocedure chest x-ray still shows residual pneumothorax on the right with chest tube tip appearing to be inside pleural cavity. Patient was accepted for admission by critical care medicine service and I evaluated the patient while he was in the ER. He states that his breathing has improved somewhat however he is still short of breath. He was on 6 L nasal cannula at the time of my evaluation and could speak in complete sentences. Patient also has a history of chronic left sided flank pain, son reports this is chronic and that has had workup to try and determine cause, but no clear answer has been identified. He also complains of numbness in his legs related to diabetic neuropathy. 04/22 Patient is on 3L oxygen with good sats. Chest tube dislodged overnight CXR showed no PTX . Afebrile. MRI brain last night no evidence of metastatic disease. 04/23 Patient was agitated, combative yesterday given Halol, Ativan and placed on Precedex drip. 04/24 Patient is off Precedex drip. Awake and alert. 20Fr CT was placed on left yesterday for recurrent PTX. Renal function is worse today with Cr: 3.99 from 2.15 04/25 Patient is lying in bed in NAD. CXR last night showed no evidence of PTX, CT is in good position, left basilar consolidation. . Renal function worse today with Cr: 4.93, UOP: 1150 ml in 24hrs 04/26: Lying in bed no respiratory distress. L chest tube is displaced, but no pneumothorax. Removed at bedside. CXR in am did not show any pneumothorax. BUN/ creat 72/5.34. UO 1.4 L in 24 hours. 04/27: No acute events overnight, patient is alert awake oriented 3. Breathing comfortably on nasal cannula. Chest x-ray shows slightly increased left lower lobe infiltrate, low-grade fever Tmax 100.4. Start empiric cefepime renally adjusted. Intermittently hypotensive we'll increase hydralazine 200 mg by mouth every 8 hours 04/28: Currently afebrile. Complaining of abdominal pain likely secondary to constipation. No bowel movement 1 week. Requesting manual disimpaction. On nasal cannula Subjective 04/29: Afebrile. Disimpacted yesterday. Means on nasal cannula. Received hemodialysis today -2.2 L. Intermittently hypotensive but currently normotensive. Objective Vital Signs Date Time Temp Pulse Resp B/P (MAP) Pulse Ox O2 Delivery O2 Flow Rate FiO2 04/29/17 11:00 87 20 122/64 (83) 100 04/29/17 08:01 98.7 04/29/17 07:48 Nasal Cannula 2.00 04/28/17 07:00 60 Intake and Output 04/29/17 04/29/17 04/30/17 08:00 16:00 00:00 Intake Total 1602 ml Output Total 2350 ml 1000 ml Balance -748 ml -1000 ml Result Diagram: 04/29/17 0447 04/29/17 0447 Other Results Microbiology Date/Time Source Procedure Growth Status 04/26/17 15:10 Blood Peripheral Aerobic Blood Culture - Preliminary NO GROWTH IN 3 DAYS Resulted 04/26/17 15:10 Blood Peripheral Anaerobic Blood Culture - Preliminary NO GROWTH IN 3 DAYS Resulted 04/26/17 15:20 Urine Catheterized Urine Urine Culture - Final NO GROWTH IN 48 HOURS. Complete Imaging Last Impressions Catheter Placement X-Ray 04/28/17 0000 Signed Impressions: Service Date/Time: Friday, April 28, 2017 17:53 - CONCLUSION: Uncomplicated line placement as above. Hernandez Mondragon MD Abdomen X-Ray 04/28/17 0000 Signed Impressions: Service Date/Time: Friday, April 28, 2017 16:01 - CONCLUSION: Scattered stool throughout the colon, nonspecific Negative for obstruction.. Yehuda Reyes MD FACR Chest X-Ray 04/27/17 0600 Signed Impressions: Service Date/Time: March 04:19 - CONCLUSION: Increased density the left base likely related to some degree of atelectasis or consolidation. Some degree of effusion cannot be excluded. Hernandez Sparks MD Renal Ultrasound 04/24/17 0000 Signed Impressions: Service Date/Time: Monday, April 24, 2017 10:26 - CONCLUSION: Unremarkable kidneys. Bladder totally decompressed. Darin Nuñez Jr., MD Chest CT 04/21/17 0000 Signed Impressions: Service Date/Time: Friday, April 21, 2017 01:50 - CONCLUSION: 1. The left-sided chest tube lies outside the thorax with the tip along the outer mid ribs. 2. Moderate to large left pneumothorax with mediastinal shift to the right. There is volume loss in the right hemithorax compared to the left however this is similar to on the prior CT. 3. Spiculated mass in the left upper lobe with underlying emphysema and scarring. 4. Small left effusion. These findings were called to Dr. Tucker in the emergency room immediately after the study was performed. Maxx Melchor MD Brain MRI 04/21/17 0000 Signed Impressions: Service Date/Time: Friday, April 21, 2017 20:29 - CONCLUSION: 1. Moderate severity atrophy. 2. No evidence of metastatic disease to the brain. Darin Dimas MD Objective Remarks GENERAL: This is an 82-year-old AA male currently resting in bed on nasal cannula SKIN: Warm and dry. HEAD: Normocephalic. EYES: No scleral icterus. No injection or drainage. NECK: Supple, trachea midline. No JVD or lymphadenopathy. Right IJ hemodialysis catheter clean dry and intact CARDIOVASCULAR: Regular rate and rhythm without murmurs, gallops, or rubs. Intermittently hypertensive RESPIRATORY: Breath sounds equal bilaterally. No accessory muscle use. GASTROINTESTINAL: Abdomen protuberant. Tender palpation bilateral lower quadrants. No rigidity. Hypoactive bowel sounds. MUSCULOSKELETAL: 2+ bilateral upper and lower extremity edema Neuro: Awake and alert, oriented. No focal deficits. Moves all extremities equally A/P Assessment and Plan Neuro/Psych: Intermittent Delirium Glaucoma Monitor neuro status. Avoid sedatives MRI brain 04/21 - no evidence of metastatic disease, but moderate to severe atrophy Continue Brimonidine 0.2% 1 drop each twice a day and latanoprost 0.005% 1 drop each eye at night No clinical evidence of delirium today 04/29 Currently on trazodone 50 mill grams daily/home medication As needed hydrocodone/acetaminophen 5/325 every 6 hours when necessary CV: Hypertension Coronary artery disease Dyslipidemia Monitor HR and BP keep MAP>65mmHg On Hydralazine 50mg Q8-increase to 100 mg po q8h along with metoprolol 50 mg every 6 hours Holding lisinopril/HCTZ 03/09.5 one tablet daily in light of acute injury On pravastatin 40 mg by mouth daily/home medication for dyslipidemia Pulm: Acute on chronic respiratory failure Recurrent Left pneumothorax following lung biopsy status post left-sided chest tube placement ( dislodged x2) COPD with possible COPD exacerbation Continue with oxygen keep sat >92% Albuterol/ipratropium aerosols 4 times a day with albuterol aerosols every 2 hours when necessary dyspnea Prednisone 20mg daily currently on hold 20Fr CT placed 04/23 for recurrent PTX disoldged and removed 04/26/17, no PTX Pulm is following- Dr. Youssef. Holding Theophylline 300mg TID ( Level 24.8 down to 10.9) GI/liver: Constipation On PO diet Famotidine for GI prophylaxis Docusate sodium/senna 1 tablet twice a day, MiraLAX daily and lactulose daily for GI prophylaxis. Glycerin suppositories and sepsis enema when necessary. Okay to manually disimpact. 04/28 Renal/: Acute kidney injury Monitor renal function Will require hemodialysis 04/29 -Vas-Cath placement by IR Dr. Mondragon 04/28. -2.2 L Renal US unremarkable. Avoid nephrotoxic drugs ID: Left lower lobe pneumonia question raul Monitor for signs of infections ( Fever, WBC), CXR persistent left lower lobe infiltrate low-grade fevers started on cefepime today 04/27/17 Currently on cefepime 1 g every 24 hours Heme: Lung cancer- non-small cell carcinoma lung Squamous cell ca stage IA [id number] Normocytic anemia Monitor CBC, Onc is following-Stage 1A lung ca, definitive radiation therapy once patient discharged Endo: Diabetes mellitus Hypothyroidism Gout Holding glipizide 5 mill grams daily/home medication Medium Novulog for glycemic control Continue levothyroxine 25 mg daily/home medication Continue allopurinol 100 mg daily Prophylaxis: Famotidine/SCDs/heparin. Level II follow-up Patient is stable from a critical care medicine standpoint. Assign care to hospitalist in a.m. 04/30. Ajit Lloyd MD Apr 29, 2017 12:08
[2017-04-29] MEDS: LATANOPROST 0.005% OPHT SOLN 2.5 ML BTL EACH EYE SCH (21:00)
[2017-04-29] MEDS: FAMOTIDINE 20 MG TAB PO SCH (21:09)
[2017-04-29] MEDS: traZODone HCL 50 MG TAB PO SCH (21:09)
[2017-04-30] VITALS (30 sets, daily range): BP systolic 80–194; BP diastolic 49–96; PULSE 78–97; RESP 11–30; TEMP 98.1–99; O2SAT 96–100
[2017-04-30] MEDS: CHLORHEXIDINE GLUCONATE 2 % 1 PACK (2 CLOTHS) TOP SCH (03:26)
[2017-04-30] MEDS: HEPARIN SODIUM - SQ 10,000 UNITS/ML VIAL SQ SCH ×2 (06:00→16:51)
[2017-04-30] MEDS: hydrALAZINE HCL 100 MG TAB PO SCH ×3 (06:00→22:18)
[2017-04-30 06:23] LABS: BASOPHIL % 0.4 % (0.0-2.0); EOSINOPHIL # 0.3 TH/MM3 (0-0.4); HEMATOCRIT 31.9 % (39.0-51.0); HEMO FLAGS DIFF FINAL; LYMPH % 24.2 % (9.0-44.0); LYMPHOCYTE # 1.4 TH/MM3 (1.0-4.8); MEAN CELL VOLUME 87.1 FL (80.0-100.0); MEAN CORPUSCULAR HGB CONC 32.2 % (32.0-36.0); MONO % 18.5 % (0.0-8.0); NEUT % 51.9 % (16.0-70.0); PLATELET COUNT 196 TH/MM3 (150-450); RED BLOOD COUNT 3.66 MIL/MM3 (4.50-5.90); RED CELL DISTRIBUTION WIDTH 14.6 % (11.6-17.2); WHITE BLOOD COUNT 5.8 TH/MM3 (4.0-11.0)
[2017-04-30 07:02] LABS: BICARBONATE 27.2 MEQ/L (21.0-32.0); POTASSIUM 3.9 MEQ/L (3.5-5.1)
[2017-04-30] MEDS: INSULIN ASPART SUPPLEMENTAL SCALE SQ SCH ×4 (07:17→21:00)
[2017-04-30] MEDS: CHLORHEXIDINE 0.12% (ORAL KIT) 15 ML CUP MT SCH (07:17)
[2017-04-30] MEDS: LEVOTHYROXINE SODIUM 25 MCG TAB PO SCH (07:19)
[2017-04-30] MEDS: RESP: ALBUTEROL 2.5 MG/IPRATROPIUM 0.5 MG NEB (SCH) NEB ×4 (08:09→20:12)
[2017-04-30] MEDS: ALLOPURINOL 100 MG TAB PO SCH (08:34)
[2017-04-30] MEDS: PRAVASTATIN SOD 40 MG TAB PO SCH (08:34)
[2017-04-30] MEDS: CYANOCOBALAMIN 1,000 MCG TAB PO SCH (08:34)
[2017-04-30] MEDS: DOCUSATE SODIUM 50 MG/SENNA 8.6 MG TAB PO SCH ×2 (08:35→22:18)
[2017-04-30] MEDS: FAMOTIDINE 20 MG TAB PO SCH ×2 (08:35→22:18)
[2017-04-30] MEDS: SODIUM CHLORIDE 0.9% FLUSH 10 ML FLUSH IV FLUSH SCH ×2 (08:36→22:19)
[2017-04-30] MEDS: BRIMONIDINE TARTRATE 0.2% OPHT SOLN 5 ML BTL EACH EYE SCH ×2 (08:37→22:18)
[2017-04-30] MEDS: LACTULOSE SYRUP 20 GM/30 ML CUP PO SCH ×3 (08:37→18:26)
[2017-04-30] MEDS: METOPROLOL TARTRATE 50 MG TAB PO SCH ×2 (08:37→22:19)
[2017-04-30] MEDS: POLYETHYLENE GLYCOL 17 GM PKG PO SCH (08:38)
[2017-04-30] MEDS: GENTAMICIN SULFATE (DIALYSIS USE ONLY) 20 MG/2 ML VIAL OTHER PRN (08:54)
[2017-04-30] MEDS: HEPARIN SODIUM - IV 10,000 UNITS/10 ML VIAL PRN (08:54)
[2017-04-30] MEDS: CEFEPIME INJ 1,000 MG in SODIUM CHLORIDE 0.9% INJ 100 ML IV SCH (11:07)
[2017-04-30] MEDS ORDERED: MELATONIN 5 MG TAB PO PRN (17:30)
--- NOTE | 2017-04-30 17:34 | HHI.CCPN ---
Subjective Remarks/Hospital Course is a 82-year-old male with a past medical history of hypertension, hyperlipidemia, diabetes, COPD, prostate cancer, kidney stones, hypothyroidism, neuropathy, and recently diagnosed lung cancer. Patient has a history of COPD and had a routine chest x-ray done which had an incidental finding of lung nodule. He had a lung biopsy done previously, however not enough cells were collected to properly determine staging per son. Patient had a repeat lung biopsy on 04/17 however after the procedure was completed an x-ray done shortly after revealed a small left pneumothorax. IR was made aware, but held off on placing chest tube due to concern for blebs. He was admitted by the hospitalist service at that time and was subsequently discharged home. Patient uses 2-3 L O2 nasal cannula at home. Patient presented back to the ER on 04/20 night with worsening shortness of breath and a chest x-ray revealed a large left pneumothorax for which a 20 [place] chest tube was placed by ER physician with initial air leak with subsequently stopped with improvement in patient's respiratory status and O2 sats. He was weaned down from a nonrebreather to 6 L nasal cannula however postprocedure chest x-ray still shows residual pneumothorax on the right with chest tube tip appearing to be inside pleural cavity. Patient was accepted for admission by critical care medicine service and I evaluated the patient while he was in the ER. He states that his breathing has improved somewhat however he is still short of breath. He was on 6 L nasal cannula at the time of my evaluation and could speak in complete sentences. Patient also has a history of chronic left sided flank pain, son reports this is chronic and that has had workup to try and determine cause, but no clear answer has been identified. He also complains of numbness in his legs related to diabetic neuropathy. 04/22 Patient is on 3L oxygen with good sats. Chest tube dislodged overnight CXR showed no PTX . Afebrile. MRI brain last night no evidence of metastatic disease. 04/23 Patient was agitated, combative yesterday given Halol, Ativan and placed on Precedex drip. 04/24 Patient is off Precedex drip. Awake and alert. 20Fr CT was placed on left yesterday for recurrent PTX. Renal function is worse today with Cr: 3.99 from 2.15 04/25 Patient is lying in bed in NAD. CXR last night showed no evidence of PTX, CT is in good position, left basilar consolidation. . Renal function worse today with Cr: 4.93, UOP: 1150 ml in 24hrs 04/26: Lying in bed no respiratory distress. L chest tube is displaced, but no pneumothorax. Removed at bedside. CXR in am did not show any pneumothorax. BUN/ creat 72/5.34. UO 1.4 L in 24 hours. 04/27: No acute events overnight, patient is alert awake oriented 3. Breathing comfortably on nasal cannula. Chest x-ray shows slightly increased left lower lobe infiltrate, low-grade fever Tmax 100.4. Start empiric cefepime renally adjusted. Intermittently hypotensive we'll increase hydralazine 200 mg by mouth every 8 hours 04/28: Currently afebrile. Complaining of abdominal pain likely secondary to constipation. No bowel movement 1 week. Requesting manual disimpaction. On nasal cannula Subjective 04/29: Afebrile. Disimpacted yesterday. Means on nasal cannula. Received hemodialysis today -2.2 L. Intermittently hypotensive but currently normotensive. 04/30: Patient having episodes of nausea receiving Zofran. Patient complaint of confusion being disrupted at 4 AM, and institution of sleep hygiene with melatonin when necessary at night to aid in sleep and minimal disruptions in sleep at night. Patient underwent dialysis with 1 L removed today. Objective Vital Signs Date Time Temp Pulse Resp B/P (MAP) Pulse Ox O2 Delivery O2 Flow Rate FiO2 04/30/17 14:00 90 04/30/17 13:01 26 143/79 (100) 100 04/30/17 08:10 Nasal Cannula 2.00 04/30/17 08:01 99.0 04/28/17 07:00 60 Intake and Output 04/30/17 04/30/17 05/01/17 08:00 16:00 00:00 Intake Total 480 ml 100 ml Output Total 1200 ml 1000 ml Balance -720 ml -900 ml Result Diagram: 04/30/17 0542 04/30/17 0542 Imaging Last Impressions Catheter Placement X-Ray 04/28/17 0000 Signed Impressions: Service Date/Time: Friday, April 28, 2017 17:53 - CONCLUSION: Uncomplicated line placement as above. Hernandez Mondragon MD Abdomen X-Ray 04/28/17 0000 Signed Impressions: Service Date/Time: Friday, April 28, 2017 16:01 - CONCLUSION: Scattered stool throughout the colon, nonspecific Negative for obstruction.. Yehuda Reyes MD FACR Chest X-Ray 04/27/17 0600 Signed Impressions: Service Date/Time: March 04:19 - CONCLUSION: Increased density the left base likely related to some degree of atelectasis or consolidation. Some degree of effusion cannot be excluded. Hernandez Sparks MD Renal Ultrasound 04/24/17 0000 Signed Impressions: Service Date/Time: Monday, April 24, 2017 10:26 - CONCLUSION: Unremarkable kidneys. Bladder totally decompressed. Darin Nuñez Jr., MD Chest CT 04/21/17 0000 Signed Impressions: Service Date/Time: Friday, April 21, 2017 01:50 - CONCLUSION: 1. The left-sided chest tube lies outside the thorax with the tip along the outer mid ribs. 2. Moderate to large left pneumothorax with mediastinal shift to the right. There is volume loss in the right hemithorax compared to the left however this is similar to on the prior CT. 3. Spiculated mass in the left upper lobe with underlying emphysema and scarring. 4. Small left effusion. These findings were called to Dr. Tucker in the emergency room immediately after the study was performed. Maxx Melchor MD Brain MRI 04/21/17 0000 Signed Impressions: Service Date/Time: Friday, April 21, 2017 20:29 - CONCLUSION: 1. Moderate severity atrophy. 2. No evidence of metastatic disease to the brain. Darin Dimas MD Objective Remarks GENERAL: This is an 82-year-old obese male currently resting in bed on nasal cannula SKIN: Warm and dry. HEAD: Normocephalic. EYES: No scleral icterus. No injection or drainage. NECK: Supple, trachea midline. No JVD or lymphadenopathy. Right IJ hemodialysis catheter clean dry and intact CARDIOVASCULAR: Regular rate and rhythm without murmurs, gallops, or rubs. Intermittently hypertensive RESPIRATORY: Breath sounds equal bilaterally. No accessory muscle use. GASTROINTESTINAL: Abdomen protuberant. Tender palpation bilateral lower quadrants. No rigidity. Hypoactive bowel sounds. MUSCULOSKELETAL: 2+ bilateral upper and lower extremity edema Neuro: RASS 0Awake and alert, oriented. No focal deficits. Moves all extremities equally A/P Assessment and Plan Neuro/Psych: Intermittent Delirium Glaucoma Monitor neuro status. Avoid sedatives MRI brain 04/21 - no evidence of metastatic disease, but moderate to severe atrophy Continue Brimonidine 0.2% 1 drop each twice a day and latanoprost 0.005% 1 drop each eye at night No clinical evidence of delirium today 04/29 Trazodone 50 mill grams daily/home medication, discontinued discussion with family patient has ordered at home but does not take it As needed hydrocodone/acetaminophen 5/325 every 6 hours when necessary CV: Hypertension Coronary artery disease Dyslipidemia Monitor HR and BP keep MAP>65mmHg On Hydralazine 50mg Q8-increase to 100 mg po q8h along with metoprolol 50 mg every 6 hours Holding lisinopril/HCTZ 03/09.5 one tablet daily in light of acute injury On pravastatin 40 mg by mouth daily/home medication for dyslipidemia Pulm: Acute on chronic respiratory failure Recurrent Left pneumothorax following lung biopsy status post left-sided chest tube placement ( dislodged x2) COPD with possible COPD exacerbation Continue with oxygen keep sat >92% Albuterol/ipratropium aerosols 4 times a day with albuterol aerosols every 2 hours when necessary dyspnea Prednisone 20mg daily currently on hold 20Fr CT placed 04/23 for recurrent PTX disoldged and removed 04/26/17, no PTX Pulm is following- Dr. Youssef. Holding Theophylline 300mg TID ( Level 24.8 down to 10.9) GI/liver: Constipation Nausea On PO diet Famotidine for GI prophylaxis Docusate sodium/senna 1 tablet twice a day, MiraLAX daily and lactulose daily for GI prophylaxis. Glycerin suppositories and sepsis enema when necessary. Okay to manually disimpact. 04/28 Zofran 4 mg every 6 hours when necessary Renal/: Acute kidney injury Monitor renal function Will require hemodialysis 04/29 -Vas-Cath placement by IR Dr. Mondragon 04/28. -2.2 L Renal US unremarkable. Avoid nephrotoxic drugs ID: Left lower lobe pneumonia question raul Monitor for signs of infections ( Fever, WBC), CXR persistent left lower lobe infiltrate low-grade fevers started on cefepime today 04/27/17 Currently on cefepime 1 g every 24 hours Heme: Lung cancer- non-small cell carcinoma lung Squamous cell ca stage IA [id number] Normocytic anemia Monitor CBC, Onc is following-Stage 1A lung ca, definitive radiation therapy once patient discharged Endo: Diabetes mellitus Hypothyroidism Gout Holding glipizide 5 mill grams daily/home medication Medium Novulog for glycemic control Continue levothyroxine 25 mg daily/home medication Continue allopurinol 100 mg daily MSK: PT evaluation and treat Prophylaxis: Famotidine/SCDs/heparin. Level 2 follow-up Patient is stable from a critical care medicine standpoint. Assign care to hospitalist in a.m. 04/30. Planned transfer to [facility] floor . Physician Arely Amaya MD Apr 30, 2017 17:34
--- NOTE | 2017-04-30 19:32 | HHI.NPPN ---
Subjective History of Present Illness 82 year old with ARF, Lung Ca, CT in place for PTX Additional Remarks Patient with nasal cannula, alert, not in distress, eating well. Review of Systems General Constitutional: Fatigue Objective Data Data 04/30/17 05/01/17 19:00 07:00 Intake Total 580 ml Output Total 1900 ml Balance -1320 ml Intake Oral 480 ml IV Total 100 ml Output Urine Total 900 ml Hemodialysis 1000 ml # Bowel Movements 0 Vital Signs Date Time Temp Pulse Resp B/P (MAP) Pulse Ox O2 Delivery O2 Flow Rate FiO2 04/30/17 18:00 96 04/30/17 18:00 96 30 173/86 (115) 04/30/17 17:01 97 17 153/70 (97) 100 04/30/17 16:01 98.9 91 11 183/87 (119) 100 04/30/17 16:00 90 04/30/17 15:01 90 30 143/77 (99) 100 04/30/17 14:01 90 16 146/77 (100) 99 04/30/17 14:00 90 04/30/17 13:01 94 26 143/79 (100) 100 04/30/17 12:49 92 22 137/77 (97) 100 04/30/17 12:01 92 21 194/92 (126) 100 04/30/17 12:00 92 04/30/17 11:16 93 23 142/78 (99) 100 04/30/17 11:01 93 17 126/84 (98) 100 04/30/17 11:00 93 04/30/17 10:00 87 04/30/17 10:00 87 15 140/82 (101) 100 04/30/17 09:01 85 16 158/88 (111) 100 04/30/17 08:10 97 Nasal Cannula 2.00 04/30/17 08:01 99.0 78 13 164/81 (108) 100 04/30/17 08:00 78 04/30/17 07:01 81 13 165/81 (109) 100 04/30/17 07:00 99 Nasal Cannula 2.00 04/30/17 06:01 83 14 164/83 (110) 99 04/30/17 06:00 83 04/30/17 05:01 85 13 80/49 (59) 99 04/30/17 04:00 86 04/30/17 04:00 98.6 86 14 85/53 (64) 99 04/30/17 02:00 84 04/30/17 00:00 86 04/30/17 00:00 98.4 86 14 97/52 (67) 99 04/29/17 22:00 88 04/29/17 20:00 90 04/29/17 20:00 98.6 90 18 107/58 (74) 100 04/29/17 19:42 100 Nasal Cannula 2.00 -: 04/30/17 0542 04/30/17 0542 Physical Exam General Appearance: Well Developed, Well Nourished, Comfortable Neck Neck Exam: Neck Supple Pulmonary Resp Exam: Decreased Bases Cardiology CV Exam: Regular Gastrointestinal/Abdomen GI Exam: Soft, Non-Tender, Bowel Sounds Present Extremeties Extremities Exam: Trace Edema Neurologic Neuro Exam: Alert, Awake Psychiatric Psych Exam: Appropriate Responses Assessment/Plan Problem List: (1) Acute renal failure ICD Codes: N17.9 - Acute kidney failure, unspecified Plan: Patient he has no improvement and need dialysis , Vascath done. Patient has been non oliguric. BUN and Creatinine slightly better after 1st HD. Started on HD after the Vascath on 04/29/17. HD done again today and 1 liter removed. Follow BMP and HD as needed. 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
[2017-04-30] MEDS: LATANOPROST 0.005% OPHT SOLN 2.5 ML BTL EACH EYE SCH (22:18)
[2017-05-01] VITALS (11 sets, daily range): BP systolic 120–164; BP diastolic 64–90; PULSE 71–85; RESP 17–20; TEMP 98.3–98.5; O2SAT 94–100
[2017-05-01] MEDS: hydrALAZINE HCL 100 MG TAB PO SCH ×3 (05:24→21:15)
[2017-05-01] MEDS: LEVOTHYROXINE SODIUM 25 MCG TAB PO SCH (05:24)
[2017-05-01] MEDS: HEPARIN SODIUM - SQ 10,000 UNITS/ML VIAL SQ SCH ×2 (05:27→17:02)
[2017-05-01] MEDS: RESP: ALBUTEROL 2.5 MG/IPRATROPIUM 0.5 MG NEB (SCH) NEB ×4 (07:42→20:25)
[2017-05-01 07:55] LABS: BICARBONATE 27.3 MEQ/L (21.0-32.0)
[2017-05-01 07:58] LABS: MAGNESIUM 1.8 MG/DL (1.5-2.5); POTASSIUM 4.6 MEQ/L (3.5-5.1)
[2017-05-01] MEDS: INSULIN ASPART SUPPLEMENTAL SCALE SQ SCH ×4 (08:00→21:00)
[2017-05-01] MEDS: PRAVASTATIN SOD 40 MG TAB PO SCH (08:25)
[2017-05-01] MEDS: LACTULOSE SYRUP 20 GM/30 ML CUP PO SCH (08:25)
[2017-05-01] MEDS: CYANOCOBALAMIN 1,000 MCG TAB PO SCH (08:26)
[2017-05-01] MEDS: ALLOPURINOL 100 MG TAB PO SCH (08:26)
[2017-05-01] MEDS: METOPROLOL TARTRATE 50 MG TAB PO SCH ×2 (08:26→21:14)
[2017-05-01] MEDS: POLYETHYLENE GLYCOL 17 GM PKG PO SCH (08:26)
[2017-05-01] MEDS: DOCUSATE SODIUM 50 MG/SENNA 8.6 MG TAB PO SCH ×2 (08:26→21:00)
[2017-05-01] MEDS: CEFEPIME INJ 1,000 MG in SODIUM CHLORIDE 0.9% INJ 100 ML IV SCH (08:26)
[2017-05-01] MEDS: FAMOTIDINE 20 MG TAB PO SCH ×2 (08:26→21:15)
[2017-05-01] MEDS: SODIUM CHLORIDE 0.9% FLUSH 10 ML FLUSH IV FLUSH SCH ×2 (08:27→21:14)
[2017-05-01] MEDS: BRIMONIDINE TARTRATE 0.2% OPHT SOLN 5 ML BTL EACH EYE SCH ×2 (08:27→21:14)
--- NOTE | 2017-05-01 12:41 | RADRPT ---
EXAM DATE/TIME: 05/01/2017 11:59 [facility] COMPARISON: CHEST SINGLE AP, April 27, 2017, 4:19. INDICATIONS : Shortness of breath; Left lower lung infiltrate. MEDICAL HISTORY : Hypercholesterolemia. Hypertension. Chronic obstructive pulmonary disease. Diabetes. Prostate Cancer. Renal disease. Thyroid disease. SURGICAL HISTORY : None. ENCOUNTER: Subsequent ACUITY: 1 week PAIN SCORE: 0/10 LOCATION: Left lower chest FINDINGS: 2 frontal views are performed. On the sagittal view, both hemidiaphragms are fairly well delineated. No definite obliteration of the left hemidiaphragm. Thoracic aorta is tortuous. Central line tip proj ects of the distal superior vena cava. The heart is upper limits normal size. No focal infiltrate see n. CONCLUSION: Improved aeration of the left lung base when compared to prior. The left hemidiaphragm is now fairly well delineated on one of the 2 views performed and no definite consolidative infiltrates seen. Darin Dimas MD on May 01, 2017 at 12:38 Board Certified Radiologist. This report was verified electronically.
--- NOTE | 2017-05-01 13:58 | HHI.NPPN ---
Subjective History of Present Illness 82 year old with ARF, Lung Ca, CT in place for PTX Additional Remarks Patient with nasal cannula, alert, not in distress, eating well. Review of Systems General Constitutional: Fatigue Objective Data Data Vital Signs Date Time Temp Pulse Resp B/P (MAP) Pulse Ox O2 Delivery O2 Flow Rate FiO2 05/01/17 12:10 98.4 75 20 120/68 (85) 96 05/01/17 12:00 74 05/01/17 08:10 98.5 71 20 134/74 (94) 100 05/01/17 08:00 72 05/01/17 07:45 97 Nasal Cannula 2.00 05/01/17 04:00 Nasal Cannula 2.00 05/01/17 04:00 98.3 73 17 155/83 (107) 96 05/01/17 00:00 98.4 85 17 157/90 (112) 96 05/01/17 00:00 Nasal Cannula 2.00 04/30/17 23:57 83 04/30/17 21:35 98.1 92 17 188/96 (126) 96 04/30/17 21:30 Nasal Cannula 2.00 04/30/17 20:15 100 Nasal Cannula 2.00 04/30/17 20:00 94 04/30/17 19:00 99 Nasal Cannula 2.00 04/30/17 18:00 96 04/30/17 18:00 96 30 173/86 (115) 04/30/17 17:01 97 17 153/70 (97) 100 04/30/17 16:01 98.9 91 11 183/87 (119) 100 04/30/17 16:00 90 04/30/17 15:01 90 30 143/77 (99) 100 04/30/17 14:01 90 16 146/77 (100) 99 04/30/17 14:00 90 -: 04/30/17 0542 05/01/17 0514 Physical Exam General Appearance: Well Developed, Well Nourished, Comfortable Neck Neck Exam: Neck Supple Pulmonary Resp Exam: Decreased Bases Cardiology CV Exam: Regular Gastrointestinal/Abdomen GI Exam: Soft, Non-Tender, Bowel Sounds Present Extremeties Extremities Exam: Trace Edema Neurologic Neuro Exam: Alert, Awake Psychiatric Psych Exam: Appropriate Responses Assessment/Plan Problem List: (1) Acute renal failure ICD Codes: N17.9 - Acute kidney failure, unspecified Plan: Patient he has started dialysis , Patient has been non oliguric. BUN and Creatinine slightly better after HD. Started on HD after the Vascath on 04/29/17. 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
--- NOTE | 2017-05-01 17:33 | HHI.PR ---
Subjective Remarks deneis cp/sob. Denies fevers/chills. afebrile, sating well on nasal canula Objective Vitals Vital Signs Date Time Temp Pulse Resp B/P (MAP) Pulse Ox O2 Delivery O2 Flow Rate FiO2 05/01/17 16:10 98.3 76 19 127/64 (85) 94 05/01/17 12:10 98.4 75 20 120/68 (85) 96 05/01/17 12:00 74 05/01/17 08:10 98.5 71 20 134/74 (94) 100 05/01/17 08:00 72 05/01/17 07:45 97 Nasal Cannula 2.00 05/01/17 04:00 Nasal Cannula 2.00 05/01/17 04:00 98.3 73 17 155/83 (107) 96 05/01/17 00:00 98.4 85 17 157/90 (112) 96 05/01/17 00:00 Nasal Cannula 2.00 04/30/17 23:57 83 04/30/17 21:35 98.1 92 17 188/96 (126) 96 04/30/17 21:30 Nasal Cannula 2.00 04/30/17 20:15 100 Nasal Cannula 2.00 04/30/17 20:00 94 04/30/17 19:00 99 Nasal Cannula 2.00 04/30/17 18:00 96 04/30/17 18:00 96 30 173/86 (115) I/O 04/30/17 04/30/17 04/30/17 05/01/17 05/01/17 05/01/17 07:00 15:00 23:00 07:00 15:00 23:00 Intake Total 480 ml 100 ml 480 ml 480 ml Output Total 1200 ml 1000 ml 900 ml 150 ml Balance -720 ml -900 ml -420 ml 330 ml Intake Oral 480 ml 480 ml 480 ml IV Total 100 ml Output Urine Total 1200 ml 900 ml 150 ml Hemodialysis 1000 ml # Bowel Movements 0 0 0 Result Diagram: 04/30/17 0542 05/01/17 0514 Imaging Last Impressions Chest X-Ray 05/01/17 0000 Signed Impressions: Service Date/Time: Monday, May 01, 2017 11:59 - CONCLUSION: Improved aeration of the left lung base when compared to prior. The left hemidiaphragm is now fairly well delineated on one of the 2 views performed and no definite consolidative infiltrates seen. Darin Dimas MD Catheter Placement X-Ray 04/28/17 0000 Signed Impressions: Service Date/Time: Friday, April 28, 2017 17:53 - CONCLUSION: Uncomplicated line placement as above. Hernandez Mondragon MD Abdomen X-Ray 04/28/17 0000 Signed Impressions: Service Date/Time: Friday, April 28, 2017 16:01 - CONCLUSION: Scattered stool throughout the colon, nonspecific Negative for obstruction.. Yehuda Reyes MD FACR Renal Ultrasound 04/24/17 0000 Signed Impressions: Service Date/Time: Monday, April 24, 2017 10:26 - CONCLUSION: Unremarkable kidneys. Bladder totally decompressed. Darin Nuñez Jr., MD Chest CT 04/21/17 0000 Signed Impressions: Service Date/Time: Friday, April 21, 2017 01:50 - CONCLUSION: 1. The left-sided chest tube lies outside the thorax with the tip along the outer mid ribs. 2. Moderate to large left pneumothorax with mediastinal shift to the right. There is volume loss in the right hemithorax compared to the left however this is similar to on the prior CT. 3. Spiculated mass in the left upper lobe with underlying emphysema and scarring. 4. Small left effusion. These findings were called to Dr. Tucker in the emergency room immediately after the study was performed. Maxx Melchor MD Brain MRI 04/21/17 0000 Signed Impressions: Service Date/Time: Friday, April 21, 2017 20:29 - CONCLUSION: 1. Moderate severity atrophy. 2. No evidence of metastatic disease to the brain. Darin Dimas MD Objective Remarks GENERAL: This is an 82-year-old obese male currently resting in bed on nasal cannula SKIN: Warm and dry. HEAD: Normocephalic. EYES: No scleral icterus. No injection or drainage. NECK: Supple, trachea midline. No JVD or lymphadenopathy. Right IJ hemodialysis catheter clean dry and intact CARDIOVASCULAR: Regular rate and rhythm without murmurs, gallops, or rubs. Intermittently hypertensive RESPIRATORY: Breath sounds equal bilaterally. No accessory muscle use. GASTROINTESTINAL: Abdomen protuberant. Tender palpation bilateral lower quadrants. No rigidity. Hypoactive bowel sounds. MUSCULOSKELETAL: 2+ bilateral upper and lower extremity edema Neuro: RASS 0Awake and alert, oriented. No focal deficits. Moves all extremities equally A/P Assessment and Plan Intermittent Delirium Glaucoma Monitor neuro status. Avoid sedatives MRI brain 04/21 - no evidence of metastatic disease, but moderate to severe atrophy Continue Brimonidine 0.2% 1 drop each twice a day and latanoprost 0.005% 1 drop each eye at night No clinical evidence of delirium today 04/29 Trazodone 50 mill grams daily/home medication, discontinued discussion with family patient has ordered at home but does not take it As needed hydrocodone/acetaminophen 5/325 every 6 hours when necessary CV: Hypertension Coronary artery disease Dyslipidemia Monitor HR and BP keep MAP>65mmHg On Hydralazine 50mg Q8-increase to 100 mg po q8h along with metoprolol 50 mg every 6 hours Holding lisinopril/HCTZ 03/09.5 one tablet daily in light of acute injury On pravastatin 40 mg by mouth daily/home medication for dyslipidemia Pulm: Acute on chronic respiratory failure Recurrent Left pneumothorax following lung biopsy status post left-sided chest tube placement ( dislodged x2) COPD with possible COPD exacerbation Continue with oxygen keep sat >92% Albuterol/ipratropium aerosols 4 times a day with albuterol aerosols every 2 hours when necessary dyspnea Prednisone 20mg daily currently on hold 20Fr CT placed 04/23 for recurrent PTX disoldged and removed 04/26/17, no PTX Pulm is following- Dr. Youssef. Holding Theophylline 300mg TID ( Level 24.8 down to 10.9) GI/liver: Constipation Nausea On PO diet Famotidine for GI prophylaxis Docusate sodium/senna 1 tablet twice a day, MiraLAX daily and lactulose daily for GI prophylaxis. Glycerin suppositories and sepsis enema when necessary. Okay to manually disimpact. 04/28 Zofran 4 mg every 6 hours when necessary Renal/: Acute kidney injury Monitor renal function Will require hemodialysis 04/29 -Vas-Cath placement by IR Dr. Mondragon 04/28. -2.2 L Renal US unremarkable. Avoid nephrotoxic drugs 05/01 fu nephrology recommendations. ID: Left lower lobe pneumonia question raul Monitor for signs of infections ( Fever, WBC), CXR persistent left lower lobe infiltrate low-grade fevers started on cefepime today 04/27/17 Currently on cefepime 1 g every 24 hours 05/01 Repeat CXR does not show infiltrates. WBC hunter and patient afebrile. Will DC Cefepime and observe off antibiotics. Heme: Lung cancer- non-small cell carcinoma lung Squamous cell ca stage IA [id number] Normocytic anemia Monitor CBC, Onc is following-Stage 1A lung ca, definitive radiation therapy once patient discharged Endo: Diabetes mellitus Hypothyroidism Gout Holding glipizide 5 mill grams daily/home medication Medium Novulog for glycemic control Continue levothyroxine 25 mg daily/home medication Continue allopurinol 100 mg daily MSK: PT evaluation and treat Prophylaxis: Famotidine/SCDs/heparin. Catracho Ahumada MD May 01, 2017 17:33
[2017-05-01] MEDS: LATANOPROST 0.005% OPHT SOLN 2.5 ML BTL EACH EYE SCH (21:14)
[2017-05-02] VITALS (10 sets, daily range): BP systolic 140–150; BP diastolic 71–80; PULSE 67–81; RESP 16–20; TEMP 97.4–98.9; O2SAT 97–100
[2017-05-02] MEDS: LEVOTHYROXINE SODIUM 25 MCG TAB PO SCH (05:52)
[2017-05-02] MEDS: HEPARIN SODIUM - SQ 10,000 UNITS/ML VIAL SQ SCH ×2 (05:52→17:05)
[2017-05-02] MEDS: hydrALAZINE HCL 100 MG TAB PO SCH ×3 (05:52→21:24)
[2017-05-02] MEDS: INSULIN ASPART SUPPLEMENTAL SCALE SQ SCH ×4 (08:00→21:00)
[2017-05-02] MEDS: RESP: ALBUTEROL 2.5 MG/IPRATROPIUM 0.5 MG NEB (SCH) NEB ×4 (08:05→19:19)
[2017-05-02] MEDS: BRIMONIDINE TARTRATE 0.2% OPHT SOLN 5 ML BTL EACH EYE SCH ×2 (12:21→21:24)
[2017-05-02] MEDS: LACTULOSE SYRUP 20 GM/30 ML CUP PO SCH (12:22)
[2017-05-02] MEDS: SODIUM CHLORIDE 0.9% FLUSH 10 ML FLUSH IV FLUSH SCH ×2 (12:22→21:24)
[2017-05-02] MEDS: METOPROLOL TARTRATE 50 MG TAB PO SCH ×2 (12:22→21:24)
[2017-05-02] MEDS: POLYETHYLENE GLYCOL 17 GM PKG PO SCH (12:22)
[2017-05-02] MEDS: FAMOTIDINE 20 MG TAB PO SCH ×2 (12:23→21:24)
[2017-05-02] MEDS: ALLOPURINOL 100 MG TAB PO SCH (12:23)
[2017-05-02] MEDS: PRAVASTATIN SOD 40 MG TAB PO SCH (12:23)
[2017-05-02] MEDS: DOCUSATE SODIUM 50 MG/SENNA 8.6 MG TAB PO SCH ×2 (12:23→21:24)
[2017-05-02] MEDS: CYANOCOBALAMIN 1,000 MCG TAB PO SCH (12:24)
--- NOTE | 2017-05-02 14:20 | HHI.NPPN ---
Subjective History of Present Illness 82 year old with ARF, Lung Ca, CT in place for PTX Additional Remarks Patient with nasal cannula, alert, not in distress, eating well. Review of Systems General Constitutional: Fatigue Objective Data Data 05/02/17 05/03/17 19:00 07:00 Output Total 1000 ml Balance -1000 ml Hemodialysis 1000 ml Vital Signs Date Time Temp Pulse Resp B/P (MAP) Pulse Ox O2 Delivery O2 Flow Rate FiO2 05/02/17 12:20 100 Nasal Cannula 2.00 05/02/17 12:00 98.5 77 20 147/79 (101) 100 05/02/17 08:05 98 Nasal Cannula 2.00 05/02/17 08:00 97.4 71 20 143/73 (96) 97 05/02/17 07:58 67 05/02/17 04:00 69 05/02/17 04:00 98.5 68 16 149/78 (101) 97 05/02/17 00:00 75 05/02/17 00:00 98.7 75 16 140/71 (94) 97 05/01/17 20:28 95 Nasal Cannula 2.00 05/01/17 20:00 77 05/01/17 20:00 98.4 81 18 164/73 (103) 97 05/01/17 20:00 Nasal Cannula 2.00 05/01/17 16:10 98.3 76 19 127/64 (85) 94 05/01/17 16:00 73 -: 04/30/17 0542 05/01/17 0514 Physical Exam General Appearance: Well Developed, Well Nourished, Comfortable Neck Neck Exam: Neck Supple Pulmonary Resp Exam: Decreased Bases Cardiology CV Exam: Regular Gastrointestinal/Abdomen GI Exam: Soft, Non-Tender, Bowel Sounds Present Extremeties Extremities Exam: Trace Edema Neurologic Neuro Exam: Alert, Awake Psychiatric Psych Exam: Appropriate Responses Assessment/Plan Problem List: (1) Acute renal failure ICD Codes: N17.9 - Acute kidney failure, unspecified Plan: Patient he has started dialysis , Patient has been non oliguric. HD earlier 1 L off follow CBC, BMP PO4 Started on HD after the Vascath on 04/29/17. 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
--- NOTE | 2017-05-02 18:01 | HHI.PR ---
Subjective Remarks no major ovenight events. Patient denies cp/sob Objective Vitals Vital Signs Date Time Temp Pulse Resp B/P (MAP) Pulse Ox O2 Delivery O2 Flow Rate FiO2 05/02/17 15:34 100 Nasal Cannula 2.00 05/02/17 12:20 100 Nasal Cannula 2.00 05/02/17 12:00 98.5 77 20 147/79 (101) 100 05/02/17 08:05 98 Nasal Cannula 2.00 05/02/17 08:00 97.4 71 20 143/73 (96) 97 05/02/17 07:58 67 05/02/17 04:00 69 05/02/17 04:00 98.5 68 16 149/78 (101) 97 05/02/17 00:00 75 05/02/17 00:00 98.7 75 16 140/71 (94) 97 05/01/17 20:28 95 Nasal Cannula 2.00 05/01/17 20:00 77 05/01/17 20:00 98.4 81 18 164/73 (103) 97 05/01/17 20:00 Nasal Cannula 2.00 I/O 05/01/17 05/01/17 05/01/17 05/02/17 05/02/17 05/02/17 07:00 15:00 23:00 07:00 15:00 23:00 Intake Total 480 ml 480 ml Output Total 150 ml 200 ml 850 ml 1000 ml Balance 330 ml 280 ml -850 ml -1000 ml Intake Oral 480 ml 480 ml Output Urine Total 150 ml 200 ml 850 ml Hemodialysis 1000 ml # Bowel Movements 0 Result Diagram: 04/30/17 0542 05/01/17 0514 Imaging Last Impressions Chest X-Ray 05/01/17 0000 Signed Impressions: Service Date/Time: Monday, May 01, 2017 11:59 - CONCLUSION: Improved aeration of the left lung base when compared to prior. The left hemidiaphragm is now fairly well delineated on one of the 2 views performed and no definite consolidative infiltrates seen. Darin Dimas MD Catheter Placement X-Ray 04/28/17 0000 Signed Impressions: Service Date/Time: Friday, April 28, 2017 17:53 - CONCLUSION: Uncomplicated line placement as above. Hernandez Mondragon MD Abdomen X-Ray 04/28/17 0000 Signed Impressions: Service Date/Time: Friday, April 28, 2017 16:01 - CONCLUSION: Scattered stool throughout the colon, nonspecific Negative for obstruction.. Yehuda Reyes MD FACR Renal Ultrasound 04/24/17 0000 Signed Impressions: Service Date/Time: Monday, April 24, 2017 10:26 - CONCLUSION: Unremarkable kidneys. Bladder totally decompressed. Darin Nuñez Jr., MD Chest CT 04/21/17 0000 Signed Impressions: Service Date/Time: Friday, April 21, 2017 01:50 - CONCLUSION: 1. The left-sided chest tube lies outside the thorax with the tip along the outer mid ribs. 2. Moderate to large left pneumothorax with mediastinal shift to the right. There is volume loss in the right hemithorax compared to the left however this is similar to on the prior CT. 3. Spiculated mass in the left upper lobe with underlying emphysema and scarring. 4. Small left effusion. These findings were called to Dr. Tucker in the emergency room immediately after the study was performed. Maxx Melchor MD Brain MRI 04/21/17 0000 Signed Impressions: Service Date/Time: Friday, April 21, 2017 20:29 - CONCLUSION: 1. Moderate severity atrophy. 2. No evidence of metastatic disease to the brain. Darin Dimas MD Objective Remarks GENERAL: This is an 82-year-old obese male currently resting in bed on nasal cannula SKIN: Warm and dry. HEAD: Normocephalic. EYES: No scleral icterus. No injection or drainage. NECK: Supple, trachea midline. No JVD or lymphadenopathy. Right IJ hemodialysis catheter clean dry and intact CARDIOVASCULAR: Regular rate and rhythm without murmurs, gallops, or rubs. Intermittently hypertensive RESPIRATORY: Breath sounds equal bilaterally. No accessory muscle use. GASTROINTESTINAL: Abdomen protuberant. Tender palpation bilateral lower quadrants. No rigidity. Hypoactive bowel sounds. MUSCULOSKELETAL: 2+ bilateral upper and lower extremity edema Neuro: RASS 0Awake and alert, oriented. No focal deficits. Moves all extremities equally A/P Assessment and Plan Intermittent Delirium Glaucoma Monitor neuro status. Avoid sedatives MRI brain 04/21 - no evidence of metastatic disease, but moderate to severe atrophy Continue Brimonidine 0.2% 1 drop each twice a day and latanoprost 0.005% 1 drop each eye at night No clinical evidence of delirium today 04/29 Trazodone 50 mill grams daily/home medication, discontinued discussion with family patient has ordered at home but does not take it As needed hydrocodone/acetaminophen 5/325 every 6 hours when necessary CV: Hypertension Coronary artery disease Dyslipidemia Monitor HR and BP keep MAP>65mmHg On Hydralazine 50mg Q8-increase to 100 mg po q8h along with metoprolol 50 mg every 6 hours Holding lisinopril/HCTZ 03/09.5 one tablet daily in light of acute injury On pravastatin 40 mg by mouth daily/home medication for dyslipidemia Pulm: Acute on chronic respiratory failure Recurrent Left pneumothorax following lung biopsy status post left-sided chest tube placement ( dislodged x2) COPD with possible COPD exacerbation Continue with oxygen keep sat >92% Albuterol/ipratropium aerosols 4 times a day with albuterol aerosols every 2 hours when necessary dyspnea Prednisone 20mg daily currently on hold 20Fr CT placed 04/23 for recurrent PTX disoldged and removed 04/26/17, no PTX Pulm is following- Dr. Youssef. Holding Theophylline 300mg TID ( Level 24.8 down to 10.9) GI/liver: Constipation Nausea On PO diet Famotidine for GI prophylaxis Docusate sodium/senna 1 tablet twice a day, MiraLAX daily and lactulose daily for GI prophylaxis. Glycerin suppositories and sepsis enema when necessary. Okay to manually disimpact. 04/28 Zofran 4 mg every 6 hours when necessary Renal/: Acute kidney injury Monitor renal function Will require hemodialysis 04/29 -Vas-Cath placement by IR Dr. Mondragon 04/28. -2.2 L Renal US unremarkable. Avoid nephrotoxic drugs 05/01 fu nephrology recommendations. 05/[address] Montana - Patient will need arrangements for technician terminal and repeater hemodialysis. ID: Left lower lobe pneumonia question raul Monitor for signs of infections ( Fever, WBC), CXR persistent left lower lobe infiltrate low-grade fevers started on cefepime today 04/27/17 Currently on cefepime 1 g every 24 hours 05/01 Repeat CXR does not show infiltrates. WBC normal and patient afebrile. Will DC Cefepime and observe off antibiotics. Heme: Lung cancer- non-small cell carcinoma lung Squamous cell ca stage IA [id number] Normocytic anemia Monitor CBC, Onc is following-Stage 1A lung ca, definitive radiation therapy once patient discharged Endo: Diabetes mellitus Hypothyroidism Gout Holding glipizide 5 mill grams daily/home medication Medium Novulog for glycemic control Continue levothyroxine 25 mg daily/home medication Continue allopurinol 100 mg daily MSK: PT evaluation and treat Prophylaxis: Famotidine/SCDs/heparin. Catracho Ahumada MD May 02, 2017 18:01
[2017-05-02] MEDS: LATANOPROST 0.005% OPHT SOLN 2.5 ML BTL EACH EYE SCH (21:24)
[2017-05-03] VITALS (9 sets, daily range): BP systolic 127–158; BP diastolic 69–79; PULSE 65–90; RESP 18; TEMP 97.8–98.8; O2SAT 98–100
[2017-05-03] MEDS: LEVOTHYROXINE SODIUM 25 MCG TAB PO SCH (05:05)
[2017-05-03] MEDS: hydrALAZINE HCL 100 MG TAB PO SCH ×3 (05:05→21:02)
[2017-05-03] MEDS: HEPARIN SODIUM - SQ 10,000 UNITS/ML VIAL SQ SCH ×2 (05:06→17:23)
[2017-05-03] MEDS: RESP: ALBUTEROL 2.5 MG/IPRATROPIUM 0.5 MG NEB (SCH) NEB ×2 (07:53→12:05)
[2017-05-03] MEDS: INSULIN ASPART SUPPLEMENTAL SCALE SQ SCH ×4 (08:00→20:29)
[2017-05-03] MEDS: LACTULOSE SYRUP 20 GM/30 ML CUP PO SCH (08:53)
[2017-05-03] MEDS: POLYETHYLENE GLYCOL 17 GM PKG PO SCH (08:53)
[2017-05-03] MEDS: FAMOTIDINE 20 MG TAB PO SCH ×2 (08:54→21:02)
[2017-05-03] MEDS: PRAVASTATIN SOD 40 MG TAB PO SCH (08:54)
[2017-05-03] MEDS: ALLOPURINOL 100 MG TAB PO SCH (08:54)
[2017-05-03] MEDS: DOCUSATE SODIUM 50 MG/SENNA 8.6 MG TAB PO SCH ×2 (08:54→21:02)
[2017-05-03] MEDS: METOPROLOL TARTRATE 50 MG TAB PO SCH ×2 (08:54→21:02)
[2017-05-03] MEDS: CYANOCOBALAMIN 1,000 MCG TAB PO SCH (08:54)
[2017-05-03] MEDS: BRIMONIDINE TARTRATE 0.2% OPHT SOLN 5 ML BTL EACH EYE SCH ×2 (08:57→21:06)
[2017-05-03] MEDS: SODIUM CHLORIDE 0.9% FLUSH 10 ML FLUSH IV FLUSH SCH ×2 (08:58→21:02)
[2017-05-03 09:13] LABS: AUTOMATED NEUTROPHIL # 4.8 TH/MM3 (1.8-7.7); BASOPHIL % 0.6 % (0.0-2.0); EOSINOPHIL # 0.2 TH/MM3 (0-0.4); EOSINOPHIL % 2.8 % (0.0-4.0); HEMATOCRIT 32.6 % (39.0-51.0); HEMO FLAGS DIFF FINAL; LYMPH % 16.6 % (9.0-44.0); LYMPHOCYTE # 1.2 TH/MM3 (1.0-4.8); MEAN CELL VOLUME 88.3 FL (80.0-100.0); MEAN CORPUSCULAR HEMOGLOBIN 28.5 PG (27.0-34.0); MEAN CORPUSCULAR HGB CONC 32.3 % (32.0-36.0); MONO % 15.5 % (0.0-8.0); NEUT % 64.5 % (16.0-70.0); PLATELET COUNT 242 TH/MM3 (150-450); RED BLOOD COUNT 3.69 MIL/MM3 (4.50-5.90); RED CELL DISTRIBUTION WIDTH 14.2 % (11.6-17.2); WHITE BLOOD COUNT 7.5 TH/MM3 (4.0-11.0)
[2017-05-03 09:43] LABS: BICARBONATE 32.7 MEQ/L (21.0-32.0); MAGNESIUM 1.7 MG/DL (1.5-2.5)
[2017-05-03 09:45] LABS: POTASSIUM 4.7 MEQ/L (3.5-5.1)
--- NOTE | 2017-05-03 12:00 | HHI.NPPN ---
Subjective History of Present Illness 82 year old with ARF, Lung Ca, CT in place for PTX Additional Remarks Patient with nasal cannula, alert, not in distress, eating well. Review of Systems General Constitutional: Fatigue Objective Data Data Vital Signs Date Time Temp Pulse Resp B/P (MAP) Pulse Ox O2 Delivery O2 Flow Rate FiO2 05/03/17 08:00 98.0 71 18 141/73 (95) 99 05/03/17 07:53 99 Nasal Cannula 2.00 05/03/17 04:00 65 05/03/17 04:00 97.9 67 18 146/77 (100) 99 05/03/17 00:00 75 05/03/17 00:00 97.8 67 18 127/70 (89) 100 05/02/17 20:00 81 05/02/17 20:00 98.0 78 20 150/80 (103) 98 05/02/17 20:00 Nasal Cannula 3.00 05/02/17 16:07 74 05/02/17 16:00 98.9 74 20 147/71 (96) 99 05/02/17 15:34 100 Nasal Cannula 2.00 05/02/17 12:20 100 Nasal Cannula 2.00 05/02/17 12:00 98.5 77 20 147/79 (101) 100 -: 05/03/17 0730 05/03/17 0730 Physical Exam General Appearance: Well Developed, Well Nourished, Comfortable Neck Neck Exam: Neck Supple Pulmonary Resp Exam: Decreased Bases Cardiology CV Exam: Regular Gastrointestinal/Abdomen GI Exam: Soft, Non-Tender, Bowel Sounds Present Extremeties Extremities Exam: Trace Edema Neurologic Neuro Exam: Alert, Awake Psychiatric Psych Exam: Appropriate Responses Assessment/Plan Problem List: (1) Acute renal failure ICD Codes: N17.9 - Acute kidney failure, unspecified Plan: Patient he has started dialysis , Patient has been non oliguric. HD appears to have complication with needs long-term hemodialysis he will need permacath HD TTS Baseline immunology TALI C3-C4 Anca protein electrophoresis Acute renal failure did not resolve. 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
[2017-05-03] MEDS ORDERED: ceFAZolin 2 GM PREMIX 50 ML IV SCH (15:30)
[2017-05-03] MEDS ORDERED: VANCOMYCIN INJ 1,000 MG in SODIUM CHLOR 0.9% 250 ML INJ 250 ML IV SCH (15:30)
--- NOTE | 2017-05-03 15:50 | HHI.PR ---
Subjective Remarks Denies cp/sob. Denies diarrhea. Objective Vitals Vital Signs Date Time Temp Pulse Resp B/P (MAP) Pulse Ox O2 Delivery O2 Flow Rate FiO2 05/03/17 12:00 98.3 76 18 131/72 (91) 98 05/03/17 08:00 98.0 71 18 141/73 (95) 99 05/03/17 08:00 Nasal Cannula 2.00 05/03/17 07:53 99 Nasal Cannula 2.00 05/03/17 07:00 76 05/03/17 04:00 65 05/03/17 04:00 97.9 67 18 146/77 (100) 99 05/03/17 00:00 75 05/03/17 00:00 97.8 67 18 127/70 (89) 100 05/02/17 20:00 81 05/02/17 20:00 98.0 78 20 150/80 (103) 98 05/02/17 20:00 Nasal Cannula 3.00 05/02/17 16:07 74 05/02/17 16:00 98.9 74 20 147/71 (96) 99 I/O 05/02/17 05/02/17 05/02/17 05/03/17 05/03/17 05/03/17 07:00 15:00 23:00 07:00 15:00 23:00 Intake Total 720 ml 240 ml Output Total 850 ml 1000 ml 700 ml 400 ml Balance -850 ml -1000 ml 20 ml -160 ml Intake Oral 720 ml 240 ml Output Urine Total 850 ml 700 ml 400 ml Hemodialysis 1000 ml # Bowel Movements 0 0 Result Diagram: 05/03/1772905/03/1730 Imaging Last Impressions Chest X-Ray 05/01/17 0000 Signed Impressions: Service Date/Time: Monday, May 01, 2017 11:59 - CONCLUSION: Improved aeration of the left lung base when compared to prior. The left hemidiaphragm is now fairly well delineated on one of the 2 views performed and no definite consolidative infiltrates seen. Darin Dimas MD Catheter Placement X-Ray 04/28/17 0000 Signed Impressions: Service Date/Time: Friday, April 28, 2017 17:53 - CONCLUSION: Uncomplicated line placement as above. Hernandez Mondragon MD Abdomen X-Ray 04/28/17 0000 Signed Impressions: Service Date/Time: Friday, April 28, 2017 16:01 - CONCLUSION: Scattered stool throughout the colon, nonspecific Negative for obstruction.. Yehuda Reyes MD FACR Renal Ultrasound 04/24/17 0000 Signed Impressions: Service Date/Time: Monday, April 24, 2017 10:26 - CONCLUSION: Unremarkable kidneys. Bladder totally decompressed. Darin Nuñez Jr., MD Chest CT 04/21/17 0000 Signed Impressions: Service Date/Time: Friday, April 21, 2017 01:50 - CONCLUSION: 1. The left-sided chest tube lies outside the thorax with the tip along the outer mid ribs. 2. Moderate to large left pneumothorax with mediastinal shift to the right. There is volume loss in the right hemithorax compared to the left however this is similar to on the prior CT. 3. Spiculated mass in the left upper lobe with underlying emphysema and scarring. 4. Small left effusion. These findings were called to Dr. Tucker in the emergency room immediately after the study was performed. Maxx Melchor MD Brain MRI 04/21/17 0000 Signed Impressions: Service Date/Time: Friday, April 21, 2017 20:29 - CONCLUSION: 1. Moderate severity atrophy. 2. No evidence of metastatic disease to the brain. Darin Dimas MD Objective Remarks GENERAL: This is an 82-year-old obese male currently resting in bed on nasal cannula SKIN: Warm and dry. HEAD: Normocephalic. EYES: No scleral icterus. No injection or drainage. NECK: Supple, trachea midline. No JVD or lymphadenopathy. Right IJ hemodialysis catheter clean dry and intact CARDIOVASCULAR: Regular rate and rhythm without murmurs, gallops, or rubs. Intermittently hypertensive RESPIRATORY: Breath sounds equal bilaterally. No accessory muscle use. GASTROINTESTINAL: Abdomen protuberant. Tender palpation bilateral lower quadrants. No rigidity. Hypoactive bowel sounds. MUSCULOSKELETAL: 2+ bilateral upper and lower extremity edema Neuro: RASS 0Awake and alert, oriented. No focal deficits. Moves all extremities equally Medications and IVs Current Medications Medications (Trade) Dose Ordered Sig/Speedy Route Start Time Stop Time Status Last Admin (NS Flush) 2 ml UNSCH PRN IV FLUSH 04/21/17 01:15 (NS Flush) 2 ml BID IV FLUSH 04/21/17 09:00 05/03/17 08:58 (Tylenol) 650 mg Q6H PRN PO 04/21/17 01:15 04/24/17 06:07 (Heparin Inj) 5,000 units Q12H SQ 04/21/17 18:00 05/03/17 05:06 (NovoLOG SUPPLEMENTAL SCALE) 1 ACHS SLIDING SCALE SQ 04/21/17 08:00 04/26/17 17:43 (Zyloprim) 100 mg DAILY PO 04/21/17 09:00 05/03/17 08:54 (Alphagan 0.2% Opth Soln) 1 drop BID EACH EYE 04/21/17 09:00 05/03/17 08:57 (Vitamin B12) 1,000 mcg DAILY PO 04/21/17 09:00 05/03/17 08:54 (Xalatan 0.005% Opth Soln) 1 drop HS EACH EYE 04/21/17 21:00 05/02/17 21:24 (Synthroid) 25 mcg DAILY@0600 PO 04/21/17 06:00 05/03/17 05:05 (Pravachol) 40 mg DAILY PO 04/21/17 09:00 05/03/17 08:54 Patient Own Medication 1 ea TID INH 04/21/17 09:00 Future Hold Patient Own Medication PT OWN MED: Mometas... BID INH 04/21/17 09:00 Future Hold (Lopressor) 50 mg Q12HR PO 04/21/17 10:45 Future hold 05/03/17 08:54 ([place] 5-325 Mg) 1 tab Q6H PRN PO 04/26/17 13:30 (Apresoline) 100 mg Q8HR PO 04/27/17 14:00 05/03/17 14:47 Sodium Chloride 1,000 ml @ 0 mls/hr Q0M PRN OTHER 04/28/17 13:16 (Heparin Inj) 8,000 units UNSCH PRN IV FLUSH 04/28/17 13:30 Sodium Chloride 1,000 ml @ 200 mls/hr Q5H PRN IV 04/28/17 13:16 Sodium Chloride 1,000 ml @ 0 mls/hr Q0M PRN OTHER 04/28/17 13:16 (Mannitol Inj) 12.5 gm UNSCH PRN IV 04/28/17 13:30 Albumin Human 100 ml @ 60 mls/hr UNSCH PRN IV 04/28/17 13:30 (NS Flush) 5 ml UNSCH PRN IV FLUSH 04/28/17 13:30 (Heparin Inj) UNSCH PRN .XX 04/28/17 13:30 04/30/17 08:54 (Gentamicin (Dialysis) Inj) 20 mg UNSCH PRN OTHER 04/28/17 13:30 04/30/17 08:54 (Zofran Inj) 4 mg UNSCH PRN IV PUSH 04/28/17 13:30 04/30/17 16:51 (Tylenol) 650 mg UNSCH PRN PO 04/28/17 13:30 (Benadryl) 25 mg UNSCH PRN PO 04/28/17 13:30 (Nitrostat Sl) 0.4 mg UNSCH PRN SL 04/28/17 13:30 (Catapres) 0.1 mg UNSCH PRN PO 04/28/17 13:30 (Epogen Inj) 10,000 units UNSCH PRN IV PUSH 04/28/17 13:30 04/29/17 09:12 (Gelfoam 12 Mm/7 Mm Top) 1 foam UNSCH PRN TOP 04/28/17 13:30 (Maritza-Colace) 1 tab BID PO 04/28/17 21:00 05/03/17 08:54 (Miralax) 17 gm DAILY PO 04/29/17 09:00 05/03/17 08:53 (Lactulose Liq) 30 ml DAILY PO 04/29/17 09:00 05/03/17 08:53 (Glycerin Adult Supp) 2 gm BID PRN RECTAL 04/28/17 15:30 (NS Flush) UNSCH PRN IV FLUSH 04/28/17 18:45 (Heparin Inj) UNSCH PRN IV FLUSH 04/28/17 18:45 (Albuterol Neb) 2.5 mg Q2HR NEB PRN NEB 04/29/17 12:00 (Pepcid) 10 mg BID PO 04/29/17 21:00 05/03/17 08:54 (Duoneb Neb) 1 ampule QID NEB NEB 04/29/17 16:00 05/03/17 12:05 (Melatonin) 5 mg HS PRN PO 04/30/17 17:30 Cefazolin Sodium/ Dextrose 50 ml @ 100 mls/hr DRONE OPERATOR IV 05/03/17 15:30 05/06/17 15:29 Vancomycin HCl 1000 mg/Sodium Chloride 250 ml @ 250 mls/hr DRONE OPERATOR IV 05/03/17 15:30 05/06/17 15:29 A/P Assessment and Plan Intermittent Delirium Glaucoma Monitor neuro status. Avoid sedatives MRI brain 04/21 - no evidence of metastatic disease, but moderate to severe atrophy Continue Brimonidine 0.2% 1 drop each twice a day and latanoprost 0.005% 1 drop each eye at night No clinical evidence of delirium today 04/29 Trazodone 50 mill grams daily/home medication, discontinued discussion with family patient has ordered at home but does not take it As needed hydrocodone/acetaminophen 5/325 every 6 hours when necessary CV: Hypertension Coronary artery disease Dyslipidemia Monitor HR and BP keep MAP>65mmHg On Hydralazine 50mg Q8-increase to 100 mg po q8h along with metoprolol 50 mg every 6 hours Holding lisinopril/HCTZ 03/09.5 one tablet daily in light of acute injury On pravastatin 40 mg by mouth daily/home medication for dyslipidemia Pulm: Acute on chronic respiratory failure Recurrent Left pneumothorax following lung biopsy status post left-sided chest tube placement ( dislodged x2) COPD with possible COPD exacerbation Continue with oxygen keep sat >92% Albuterol/ipratropium aerosols 4 times a day with albuterol aerosols every 2 hours when necessary dyspnea Prednisone 20mg daily currently on hold 20Fr CT placed 04/23 for recurrent PTX disoldged and removed 04/26/17, no PTX Pulm is following- Dr. Youssef. Holding Theophylline 300mg TID ( Level 24.8 down to 10.9) GI/liver: Constipation Nausea On PO diet Famotidine for GI prophylaxis Docusate sodium/senna 1 tablet twice a day, MiraLAX daily and lactulose daily for GI prophylaxis. Glycerin suppositories and sepsis enema when necessary. Okay to manually disimpact. 04/28 Zofran 4 mg every 6 hours when necessary Renal/: Acute kidney injury Monitor renal function Will require hemodialysis 04/29 -Vas-Cath placement by IR Dr. Mondragon 04/28. -2.2 L Renal US unremarkable. Avoid nephrotoxic drugs 05/01 fu nephrology recommendations. 05/[address] [place] - Patient will need arrangements for fpc hemodialysis. ID: Left lower lobe pneumonia question raul Monitor for signs of infections ( Fever, WBC), CXR persistent left lower lobe infiltrate low-grade fevers started on cefepime today 04/27/17 Currently on cefepime 1 g every 24 hours 05/01 Repeat CXR does not show infiltrates. WBC normal and patient afebrile. Will DC Cefepime and observe off antibiotics. 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 Catracho Ahumada MD May 03, 2017 15:50
[2017-05-03 16:00] LABS: TOTAL PROTEIN SPE 7.4 GM/DL (6.0-7.6)
[2017-05-03] MEDS: LATANOPROST 0.005% OPHT SOLN 2.5 ML BTL EACH EYE SCH (21:06)
[2017-05-04] VITALS: BP 146/74; PULSE 64; PULSE 74; RESP 18; TEMP 98.7; O2SAT 98
[2017-05-04 04:00] VITALS: BP 146/74; PULSE 74; RESP 18; TEMP 98.7; O2SAT 98
[2017-05-04] MEDS: HEPARIN SODIUM - SQ 10,000 UNITS/ML VIAL SQ SCH ×2 (06:00→17:47)
[2017-05-04] MEDS: hydrALAZINE HCL 100 MG TAB PO SCH ×3 (06:06→20:19)
[2017-05-04] MEDS: LEVOTHYROXINE SODIUM 25 MCG TAB PO SCH (06:06)
[2017-05-04] MEDS ORDERED: MIDAZOLAM HCL 2 MG/2 ML VIAL ONE (07:47)
[2017-05-04] MEDS ORDERED: VANCOMYCIN HCL 1000 MG VIAL ONE (07:47)
[2017-05-04 08:00] VITALS: BP 153/79; PULSE 72; RESP 18; TEMP 98.1; O2SAT 100
[2017-05-04] MEDS: INSULIN ASPART SUPPLEMENTAL SCALE SQ SCH ×4 (08:00→20:11)
[2017-05-04 08:07] LABS: AUTOMATED NEUTROPHIL # 4.8 TH/MM3 (1.8-7.7); BASOPHIL # 0.1 TH/MM3 (0-0.2); BASOPHIL % 0.7 % (0.0-2.0); EOSINOPHIL # 0.2 TH/MM3 (0-0.4); EOSINOPHIL % 2.7 % (0.0-4.0); HEMATOCRIT 31.7 % (39.0-51.0); HEMO FLAGS DIFF FINAL; LYMPH % 16.3 % (9.0-44.0); LYMPHOCYTE # 1.2 TH/MM3 (1.0-4.8); MEAN CELL VOLUME 88.5 FL (80.0-100.0); MEAN CORPUSCULAR HEMOGLOBIN 28.6 PG (27.0-34.0); MEAN CORPUSCULAR HGB CONC 32.3 % (32.0-36.0); MONO % 14.2 % (0.0-8.0); NEUT % 66.1 % (16.0-70.0); PLATELET COUNT 210 TH/MM3 (150-450); RED BLOOD COUNT 3.59 MIL/MM3 (4.50-5.90); RED CELL DISTRIBUTION WIDTH 14.3 % (11.6-17.2); WHITE BLOOD COUNT 7.3 TH/MM3 (4.0-11.0)
[2017-05-04 08:29] LABS: BICARBONATE 31.6 MEQ/L (21.0-32.0); POTASSIUM 4.4 MEQ/L (3.5-5.1)
[2017-05-04] MEDS: BRIMONIDINE TARTRATE 0.2% OPHT SOLN 5 ML BTL EACH EYE SCH ×2 (09:00→20:18)
[2017-05-04] MEDS: PRAVASTATIN SOD 40 MG TAB PO SCH (09:00)
[2017-05-04] MEDS: SODIUM CHLORIDE 0.9% FLUSH 10 ML FLUSH IV FLUSH SCH ×2 (09:00→20:25)
[2017-05-04] MEDS: DOCUSATE SODIUM 50 MG/SENNA 8.6 MG TAB PO SCH ×2 (09:00→21:00)
[2017-05-04] MEDS: POLYETHYLENE GLYCOL 17 GM PKG PO SCH (09:00)
[2017-05-04] MEDS: CYANOCOBALAMIN 1,000 MCG TAB PO SCH (09:00)
[2017-05-04] MEDS: LACTULOSE SYRUP 20 GM/30 ML CUP PO SCH (09:00)
[2017-05-04] MEDS: ALLOPURINOL 100 MG TAB PO SCH (09:00)
[2017-05-04] MEDS: METOPROLOL TARTRATE 50 MG TAB PO SCH ×2 (09:00→20:18)
[2017-05-04] MEDS: FAMOTIDINE 20 MG TAB PO SCH ×2 (09:00→20:18)
[2017-05-04] MEDS ORDERED: LIDOCAINE 1%/EPINEPHrine 1:100,000 SOLN 20 ML VIAL ONE (09:20)
--- NOTE | 2017-05-04 10:02 | PD.RAD ---
Post Procedure Progress Note Pre Procedure Diagnosis: (1) Acute renal failure Post Procedure Diagnosis: (1) Acute renal failure Procedure Date: May 04, 2017 Supervising Radiologist: Lencho Frenandez Proceduralist/Assist: RT Falguni(R), RT Parrish(R) Anesthesia: Conscious Sedation Plan of Activity Patient to Unit: Nursing Unit Patient Condition: Good See PACS Report for procedural detail/treatment Central Venous Access Device Procedure 1 Right Internal Jugular Hemodialysis Catheter Non-Tunneled Placement dual lumen Lencho Fernandez MD May 04, 2017 10:02
[2017-05-04] MEDS ORDERED: HEPARIN SODIUM - IV 2,000 UNITS/2 ML VIAL IV FLUSH PRN (10:15)
[2017-05-04] MEDS ORDERED: SODIUM CHLORIDE 0.9% FLUSH 10 ML FLUSH IV FLUSH PRN (10:15)
--- NOTE | 2017-05-04 10:21 | HHI.NPPN ---
Subjective History of Present Illness 82 year old with ARF, Lung Ca, CT in place for PTX Additional Remarks Patient alert, not in distress, eating well. Review of Systems General Constitutional: Fatigue Objective Data Data Vital Signs Date Time Temp Pulse Resp B/P (MAP) Pulse Ox O2 Delivery O2 Flow Rate FiO2 05/04/17 08:00 98.1 72 18 153/79 (103) 100 05/04/17 07:30 100 Nasal Cannula 3.00 05/04/17 04:00 98.7 74 18 146/74 (98) 98 05/04/17 00:00 98.7 74 18 146/74 (98) 98 05/04/17 00:00 64 05/03/17 20:00 68 05/03/17 20:00 98.5 70 18 158/79 (105) 98 05/03/17 20:00 Nasal Cannula 2.00 05/03/17 16:00 98.8 90 18 150/69 (96) 98 05/03/17 15:00 72 05/03/17 12:00 98.3 76 18 131/72 (91) 98 -: 05/04/17 0701 05/04/17 0701 Physical Exam General Appearance: Well Developed, Well Nourished, Comfortable Neck Neck Exam: Neck Supple Pulmonary Resp Exam: Decreased Bases Cardiology CV Exam: Regular Gastrointestinal/Abdomen GI Exam: Soft, Non-Tender, Bowel Sounds Present Extremeties Extremities Exam: Trace Edema Neurologic Neuro Exam: Alert, Awake Psychiatric Psych Exam: Appropriate Responses Assessment/Plan Problem List: (1) Acute renal failure ICD Codes: N17.9 - Acute kidney failure, unspecified Plan: Patient he has started dialysis , Patient has been non oliguric. HD appears to have complication with needs long-term hemodialysis HD TTS continue with HD PermCath placed on dialysis, seen during dialysis UF 1 L tolerating it (2) Hypertension ICD Codes: I10 - Essential (primary) hypertension Plan: Given a trial of fenoldopam (3) Pneumothorax after biopsy ICD Codes: J95.811 - Postprocedural pneumothorax Status: Acute Plan: Chest tube dislodged (4) Lung mass ICD Codes: R91.8 - Other nonspecific abnormal finding of lung field Status: Acute Plan: Pulmonary is following for squamous cell lung cancer Problem Qualifiers (1) Acute renal failure: Qualified Codes: N17.9 - Acute kidney failure, unspecified (2) Hypertension: Qualified Codes: I10 - Essential (primary) hypertension Eric Montana MD May 04, 2017 10:21
--- NOTE | 2017-05-04 11:16 | RADRPT ---
EXAM DATE/TIME: 05/04/2017 08:46 [facility] COMPARISON: No previous studies available for comparison. INDICATIONS : PATIENT PRESENTS WITH A TEMPORARY DIALYSIS CATHETER IN NEED OF A PERMANENT ONE. MEDICAL HISTORY : Hypertension Hyperlipidemia Diabetes COPD, uses oxygen at home 2-3L Prostate cancer S/P radiation Kidney stones Hypothyroidism Diabetic neuropathy Lung cancer SURGICAL HISTORY : Cataracta surgery Back surgery X5 with history of fusion Temporary dialysis catheter ENCOUNTER: [employer] ACUITY: 1 week PAIN SCORE: 0/10 FLUORO TIME: 0.6 minutes IMAGE SERIES: 1 SEDATION TIME: 30 minutes ACCESS: Right internal jugular vein SEDATION: 1.) 1.5 mg midazolam (Versed) IV 2.) 75 mcg fentanyl (Sublimaze) IV Prophylactic antibiotics were administered with appropriate pre-procedure timing. Vancomycin within 2 hours of procedure, Ancef (or alternative) within 1 hour of procedure. DEVICE: 1. 15 [place] dual lumen 23 cm Starr catheter II PROCEDURE : 1. Ultrasound-guided venipuncture. 2. PermaCath placement. 3. Conscious sedation with continuous EKG and oximetry monitoring. The risks, benefits and alternatives to the procedure were explained and verbal and written consent w as obtained. The site was prepped in sterile fashion. Full sterile technique was used, including ca p, mask, sterile gloves and gown and a large sterile sheet. Hand hygiene and 2% chlorhexidine and/or betadine/alcohol prep was utilized per protocol for cutaneous antisepsis. Sterile gel and sterile p robe cover were utilized for ultrasound guidance. The skin and subcutaneous tissues were infiltrated with local anesthetic solution. With ultrasound and fluoroscopic guidance a dermatotomy was created over the prescribed vein. A micr opuncture set was used to access the targeted vein and serial dilatation was performed to accept the prescribed length catheter. A subcutaneous tunnel was created in a retrograde fashion the catheter w as pulled through the tunnel. The catheter was flushed and assembled and locked with heparin. The c atheter was sutured in place. Conscious sedation was performed with the prescribed dosages and duration as above in the presence of an independent trained radiology nurse to assist in the monitoring of the patient. EKG and oximetry remained stable throughout the procedure. The patient tolerated the procedure well and there were n o complications. The patient was sent to post anesthesia recovery in stable condition. CONCLUSION: Uncomplicated PermaCath placement as above. Lencho Fernandez MD on May 04, 2017 at 11:14 Board Certified Radiologist. This report was verified electronically.
[2017-05-04] MEDS: EPOETIN ALFA 10,000 UNITS/ML VIAL IV PUSH PRN (12:08)
[2017-05-04] MEDS: HEPARIN SODIUM - IV 10,000 UNITS/10 ML VIAL PRN (12:08)
[2017-05-04] MEDS: GENTAMICIN SULFATE (DIALYSIS USE ONLY) 20 MG/2 ML VIAL OTHER PRN (12:08)
[2017-05-04 16:00] VITALS: BP 163/81; PULSE 89; RESP 18; TEMP 98.3; O2SAT 99
--- NOTE | 2017-05-04 19:08 | HHI.PR ---
Subjective Remarks sp permcath placement today. Denies cp/sob. Objective Vitals Vital Signs Date Time Temp Pulse Resp B/P (MAP) Pulse Ox O2 Delivery O2 Flow Rate FiO2 05/04/17 16:00 98.3 89 18 163/81 (108) 99 05/04/17 08:00 72 05/04/17 08:00 98.1 72 18 153/79 (103) 100 05/04/17 07:30 100 Nasal Cannula 3.00 05/04/17 04:00 98.7 74 18 146/74 (98) 98 05/04/17 00:00 98.7 74 18 146/74 (98) 98 05/04/17 00:00 64 05/03/17 20:00 68 05/03/17 20:00 98.5 70 18 158/79 (105) 98 05/03/17 20:00 Nasal Cannula 2.00 I/O 05/03/17 05/03/17 05/03/17 05/04/17 05/04/17 05/04/17 07:00 15:00 23:00 07:00 15:00 23:00 Intake Total 240 ml 1200 ml 360 ml Output Total 400 ml 600 ml 1000 ml 150 ml Balance -160 ml 600 ml -1000 ml 210 ml Intake Oral 240 ml 1200 ml 360 ml Output Urine Total 400 ml 600 ml 150 ml Hemodialysis 1000 ml # Bowel Movements 0 1 0 Result Diagram: 05/04/17 0701 05/04/17 0701 Imaging Last 72 hours Impressions Catheter Placement X-Ray 05/04/17 0000 Signed Impressions: Service Date/Time: April 08:46 - CONCLUSION: Uncomplicated PermaCath placement as above. Lencho Fernandez MD Objective Remarks GENERAL: This is an 82-year-old obese male currently resting in bed on nasal cannula SKIN: Warm and dry. HEAD: Normocephalic. EYES: No scleral icterus. No injection or drainage. NECK: Supple, trachea midline. No JVD or lymphadenopathy. Right IJ hemodialysis catheter clean dry and intact CARDIOVASCULAR: Regular rate and rhythm without murmurs, gallops, or rubs. Intermittently hypertensive RESPIRATORY: Breath sounds equal bilaterally. No accessory muscle use. GASTROINTESTINAL: Abdomen protuberant. Tender palpation bilateral lower quadrants. No rigidity. Hypoactive bowel sounds. MUSCULOSKELETAL: 2+ bilateral upper and lower extremity edema Neuro: RASS 0Awake and alert, oriented. No focal deficits. Moves all extremities equally A/P Assessment and Plan Intermittent Delirium Glaucoma Monitor neuro status. Avoid sedatives MRI brain 04/21 - no evidence of metastatic disease, but moderate to severe atrophy Continue Brimonidine 0.2% 1 drop each twice a day and latanoprost 0.005% 1 drop each eye at night No clinical evidence of delirium today 04/29 Trazodone 50 mill grams daily/home medication, discontinued discussion with family patient has ordered at home but does not take it As needed hydrocodone/acetaminophen 5/325 every 6 hours when necessary CV: Hypertension Coronary artery disease Dyslipidemia Monitor HR and BP keep MAP>65mmHg On Hydralazine 50mg Q8-increase to 100 mg po q8h along with metoprolol 50 mg every 6 hours Holding lisinopril/HCTZ 03/09.5 one tablet daily in light of acute injury On pravastatin 40 mg by mouth daily/home medication for dyslipidemia Pulm: Acute on chronic respiratory failure Recurrent Left pneumothorax following lung biopsy status post left-sided chest tube placement ( dislodged x2) COPD with possible COPD exacerbation Continue with oxygen keep sat >92% Albuterol/ipratropium aerosols 4 times a day with albuterol aerosols every 2 hours when necessary dyspnea Prednisone 20mg daily currently on hold 20Fr CT placed 04/23 for recurrent PTX disoldged and removed 04/26/17, no PTX Pulm is following- Dr. Youssef. Holding Theophylline 300mg TID ( Level 24.8 down to 10.9) GI/liver: Constipation Nausea On PO diet Famotidine for GI prophylaxis Docusate sodium/senna 1 tablet twice a day, MiraLAX daily and lactulose daily for GI prophylaxis. Glycerin suppositories and sepsis enema when necessary. Okay to manually disimpact. 04/28 Zofran 4 mg every 6 hours when necessary Renal/: Acute kidney injury Monitor renal function Will require hemodialysis 04/29 -Vas-Cath placement by IR Dr. Mondragon 04/28. -2.2 L Renal US unremarkable. Avoid nephrotoxic drugs 05/04 sp permacath placement. Dialysis as per nephrology. ID: Left lower lobe pneumonia question raul Monitor for signs of infections ( Fever, WBC), CXR persistent left lower lobe infiltrate low-grade fevers started on cefepime today 04/27/17 Currently on cefepime 1 g every 24 hours 05/01 Repeat CXR does not show infiltrates. WBC normal and patient afebrile. Will DC Cefepime and observe off antibiotics. 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 Discharge Planning DC home with home health once outpatient dialysis set up. Catracho Ahumada MD May 04, 2017 19:08
[2017-05-04 20:00] VITALS: BP 167/78; PULSE 82; RESP 18; TEMP 98.8; O2SAT 99
[2017-05-04] MEDS: LATANOPROST 0.005% OPHT SOLN 2.5 ML BTL EACH EYE SCH (20:18)
[2017-05-04 22:18] LABS: ALBUMIN SPE 3.94 GM/DL (3.50-5.00); ALPHA 1 GLOBULIN 0.29 GM/DL (0.11-0.29); ALPHA 2 GLOBULIN 0.96 GM/DL (0.22-1.00); BETA GLOBULINS (SPE) 0.86 GM/DL (0.53-1.03)
[2017-05-05] VITALS (7 sets, daily range): BP systolic 101–159; BP diastolic 65–84; PULSE 62–88; RESP 20; TEMP 97.9–99.3; O2SAT 98–100
[2017-05-05] MEDS: LEVOTHYROXINE SODIUM 25 MCG TAB PO SCH (05:39)
[2017-05-05] MEDS: hydrALAZINE HCL 100 MG TAB PO SCH ×3 (05:39→21:07)
[2017-05-05] MEDS: HEPARIN SODIUM - SQ 10,000 UNITS/ML VIAL SQ SCH ×2 (05:40→17:26)
[2017-05-05] MEDS: INSULIN ASPART SUPPLEMENTAL SCALE SQ SCH ×4 (08:00→21:00)
[2017-05-05] MEDS: LACTULOSE SYRUP 20 GM/30 ML CUP PO SCH (08:10)
[2017-05-05] MEDS: POLYETHYLENE GLYCOL 17 GM PKG PO SCH (08:10)
[2017-05-05] MEDS: CYANOCOBALAMIN 1,000 MCG TAB PO SCH (08:10)
[2017-05-05] MEDS: PRAVASTATIN SOD 40 MG TAB PO SCH (08:10)
[2017-05-05] MEDS: DOCUSATE SODIUM 50 MG/SENNA 8.6 MG TAB PO SCH ×2 (08:10→21:07)
[2017-05-05] MEDS: FAMOTIDINE 20 MG TAB PO SCH ×2 (08:10→21:07)
[2017-05-05] MEDS: ALLOPURINOL 100 MG TAB PO SCH (08:10)
[2017-05-05] MEDS: METOPROLOL TARTRATE 50 MG TAB PO SCH ×2 (08:11→21:07)
[2017-05-05] MEDS: BRIMONIDINE TARTRATE 0.2% OPHT SOLN 5 ML BTL EACH EYE SCH ×2 (08:17→21:09)
[2017-05-05] MEDS: SODIUM CHLORIDE 0.9% FLUSH 10 ML FLUSH IV FLUSH SCH ×2 (08:18→21:08)
--- NOTE | 2017-05-05 11:45 | HHI.NPPN ---
Subjective History of Present Illness 82 year old with ARF, Lung Ca, Additional Remarks Patient alert, not in distress, eating well. Review of Systems General Constitutional: Fatigue Objective Data Data Vital Signs Date Time Temp Pulse Resp B/P (MAP) Pulse Ox O2 Delivery O2 Flow Rate FiO2 05/05/17 09:24 75 101/68 (79) 05/05/17 08:08 99.3 78 20 137/71 (93) 99 05/05/17 08:00 Nasal Cannula 2.00 05/05/17 04:00 98.5 74 20 159/82 (107) 100 05/05/17 00:00 99.0 74 20 134/65 (88) 99 05/04/17 20:04 Nasal Cannula 2.00 05/04/17 20:00 98.8 82 18 167/78 (107) 99 05/04/17 16:00 98.3 89 18 163/81 (108) 99 -: 05/04/17 0701 05/04/17 0701 Physical Exam General Appearance: Well Developed, Well Nourished, Comfortable Neck Neck Exam: Neck Supple Pulmonary Resp Exam: Decreased Bases Cardiology CV Exam: Regular Gastrointestinal/Abdomen GI Exam: Soft, Non-Tender, Bowel Sounds Present Extremeties Extremities Exam: Trace Edema Neurologic Neuro Exam: Alert, Awake Psychiatric Psych Exam: Appropriate Responses Assessment/Plan Problem List: (1) Acute renal failure ICD Codes: N17.9 - Acute kidney failure, unspecified Plan: Patient he has started dialysis , Patient has been non oliguric. HD appears to have complication with needs long-term hemodialysis he will need permacath HD TTS discussed with him Acute renal failure did not resolve. He has history of recently diagnosed lung cancer Baseline creatinine around 1.6-1.8 (2) Hypertension ICD Codes: I10 - Essential (primary) hypertension Plan: Given a trial of fenoldopam (3) Pneumothorax after biopsy ICD Codes: J95.811 - Postprocedural pneumothorax Status: Acute Plan: resolved (4) Lung mass ICD Codes: R91.8 - Other nonspecific abnormal finding of lung field Status: Acute Plan: Pulmonary is following for squamous cell lung cancer Problem Qualifiers (1) Acute renal failure: Qualified Codes: N17.9 - Acute kidney failure, unspecified (2) Hypertension: Qualified Codes: I10 - Essential (primary) hypertension Eric Montana MD May 05, 2017 11:45
[2017-05-05 13:37] LABS: BICARBONATE 33.3 MEQ/L (21.0-32.0); POTASSIUM 3.9 MEQ/L (3.5-5.1)
[2017-05-05] MEDS ORDERED: METO-309 PO (16:30)
[2017-05-05] MEDS ORDERED: HYDR-3801 PO (16:30)
--- NOTE | 2017-05-05 16:31 | HHI.DCPOC ---
Discharge Care Plan Diagnosis: (1) Acute renal failure (2) Lung mass (3) Hypertension (4) Pneumothorax after biopsy (5) Tension pneumothorax (6) Acute respiratory failure (7) HTN (hypertension) (8) Chest pain Goals to Promote Your Health * To prevent worsening of your condition and complications * To maintain your health at the optimal level Directions to Meet Your Goals Take your medications as prescribed Follow your dietary instruction Follow activity as directed Keep your appointments as scheduled Take your immunizations and boosters as scheduled If your symptoms worsen call your PCP, if no PCP go to Urgent Care Center or Emergency Room Smoking is Dangerous to Your Health. Avoid second hand smoke Call the 24-hour hour crisis hotline for domestic abuse at Catracho Ahumada MD May 05, 2017 16:31
--- NOTE | 2017-05-05 16:41 | HHI.PR ---
Subjective Remarks no major overnight events Denies cp/sob. Tolerating PT Objective Vitals Vital Signs Date Time Temp Pulse Resp B/P (MAP) Pulse Ox O2 Delivery O2 Flow Rate FiO2 05/05/17 12:10 97.9 79 20 112/73 (86) 98 05/05/17 09:24 75 101/68 (79) 05/05/17 08:08 99.3 78 20 137/71 (93) 99 05/05/17 08:00 Nasal Cannula 2.00 05/05/17 04:00 98.5 74 20 159/82 (107) 100 05/05/17 00:00 99.0 74 20 134/65 (88) 99 05/04/17 20:04 Nasal Cannula 2.00 05/04/17 20:00 98.8 82 18 167/78 (107) 99 I/O 05/04/17 05/04/17 05/04/17 05/05/17 05/05/17 05/05/17 07:00 15:00 23:00 07:00 15:00 23:00 Intake Total 360 ml Output Total 1000 ml 150 ml 500 ml Balance -1000 ml 210 ml -500 ml Intake Oral 360 ml Output Urine Total 150 ml 500 ml Hemodialysis 1000 ml # Bowel Movements 0 Result Diagram: 05/04/17 0701 05/05/17 1214 Objective Remarks GENERAL: This is an 82-year-old obese male currently resting in bed on nasal cannula SKIN: Warm and dry. HEAD: Normocephalic. EYES: No scleral icterus. No injection or drainage. NECK: Supple, trachea midline. No JVD or lymphadenopathy. Right IJ hemodialysis catheter clean dry and intact CARDIOVASCULAR: Regular rate and rhythm without murmurs, gallops, or rubs. Intermittently hypertensive RESPIRATORY: Breath sounds equal bilaterally. No accessory muscle use. GASTROINTESTINAL: Abdomen protuberant. Tender palpation bilateral lower quadrants. No rigidity. Hypoactive bowel sounds. MUSCULOSKELETAL: 2+ bilateral upper and lower extremity edema Neuro: RASS 0Awake and alert, oriented. No focal deficits. Moves all extremities equally A/P Assessment and Plan Intermittent Delirium Glaucoma Monitor neuro status. Avoid sedatives MRI brain 04/21 - no evidence of metastatic disease, but moderate to severe atrophy Continue Brimonidine 0.2% 1 drop each twice a day and latanoprost 0.005% 1 drop each eye at night No clinical evidence of delirium today 04/29 Trazodone 50 mill grams daily/home medication, discontinued discussion with family patient has ordered at home but does not take it As needed hydrocodone/acetaminophen 5/325 every 6 hours when necessary Delirium resolved. CV: Hypertension Coronary artery disease Dyslipidemia Monitor HR and BP keep MAP>65mmHg On Hydralazine 50mg Q8-increase to 100 mg po q8h along with metoprolol 50 mg every 6 hours Holding lisinopril/HCTZ 03/09.5 one tablet daily in light of acute injury On pravastatin 40 mg by mouth daily/home medication for dyslipidemia Pulm: Acute on chronic respiratory failure Recurrent Left pneumothorax following lung biopsy status post left-sided chest tube placement ( dislodged x2) COPD with possible COPD exacerbation Continue with oxygen keep sat >92% Albuterol/ipratropium aerosols 4 times a day with albuterol aerosols every 2 hours when necessary dyspnea Prednisone 20mg daily currently on hold 20Fr CT placed 04/23 for recurrent PTX disoldged and removed 04/26/17, no PTX Pulm is following- Dr. Youssef. Holding Theophylline 300mg TID ( Level 24.8 down to 10.9) GI/liver: Constipation Nausea On PO diet Famotidine for GI prophylaxis Docusate sodium/senna 1 tablet twice a day, MiraLAX daily and lactulose daily for GI prophylaxis. Glycerin suppositories and sepsis enema when necessary. Okay to manually disimpact. 04/28 Zofran 4 mg every 6 hours when necessary Renal/: Acute kidney injury Monitor renal function Will require hemodialysis 04/29 -Vas-Cath placement by IR Dr. Mondragon 04/28. -2.2 L Renal US unremarkable. Avoid nephrotoxic drugs 05/04 sp permacath placement. Dialysis as per nephrology. ID: Left lower lobe pneumonia question raul Monitor for signs of infections ( Fever, WBC), CXR persistent left lower lobe infiltrate low-grade fevers started on cefepime today 04/27/17 Currently on cefepime 1 g every 24 hours 05/01 Repeat CXR does not show infiltrates. WBC normal and patient afebrile. Will DC Cefepime and observe off antibiotics. 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 Discharge Planning DC home with home health once outpatient dialysis set up. Catracho Ahumada MD May 05, 2017 16:41
--- NOTE | 2017-05-05 17:38 | HHI.FF ---
Face to Face Verification Diagnosis: (1) Acute respiratory failure (2) Tension pneumothorax (3) Lung mass (4) Acute renal failure (5) Hypertension (6) Pneumothorax after biopsy (7) Chest pain (8) HTN (hypertension) Physical Therapy Order: Improve ambulation, Strength and gait training Home Health Nursing Order: Medical education Medication education-adverse effect Nursing assessment with vital signs Home Health Aide Order: To Assist In: Bathing and personal care, outsole beveler and meal prep I have seen patient Hernandez Arriaza on 05/05/17. My clinical findings support the need for the requested home health care services because: Limited ability to care for self High risk of falls I certify that my clinical findings support that this patient is homebound because: Unsteady gait/balance Unsafe to leave home unassisted Need for psychosocial assistance Unable to use public transportation Catracho Ahumada MD May 05, 2017 17:38
[2017-05-05] MEDS: LATANOPROST 0.005% OPHT SOLN 2.5 ML BTL EACH EYE SCH (21:09)
[2017-05-06] VITALS: BP 145/75; PULSE 86; RESP 20; TEMP 98.1; O2SAT 100
[2017-05-06 04:00] VITALS: BP 113/73; PULSE 80; RESP 20; TEMP 98.2; O2SAT 100
[2017-05-06] MEDS: LEVOTHYROXINE SODIUM 25 MCG TAB PO SCH (05:34)
[2017-05-06] MEDS: HEPARIN SODIUM - SQ 10,000 UNITS/ML VIAL SQ SCH (05:34)
[2017-05-06] MEDS: hydrALAZINE HCL 100 MG TAB PO SCH (05:34)
[2017-05-06 07:53] LABS: MYELOPEROXIDASE LESS THAN 1.0 AI (<1.0); PROTEINASE-3 LESS THAN 1.0 AI (<1.0)
[2017-05-06] MEDS: INSULIN ASPART SUPPLEMENTAL SCALE SQ SCH ×2 (08:00→12:00)
[2017-05-06 08:09] VITALS: BP 132/82; PULSE 75; RESP 20; TEMP 97.9; O2SAT 98
[2017-05-06] MEDS: SODIUM CHLORIDE 0.9% FLUSH 10 ML FLUSH IV FLUSH SCH (09:00)
[2017-05-06] MEDS: HEPARIN SODIUM - IV 10,000 UNITS/10 ML VIAL PRN (11:10)
[2017-05-06] MEDS: GENTAMICIN SULFATE (DIALYSIS USE ONLY) 20 MG/2 ML VIAL OTHER PRN (11:10)
[2017-05-06] MEDS: EPOETIN ALFA 10,000 UNITS/ML VIAL IV PUSH PRN (11:10)
[2017-05-06] MEDS: METOPROLOL TARTRATE 50 MG TAB PO SCH (12:34)
[2017-05-06] MEDS: LACTULOSE SYRUP 20 GM/30 ML CUP PO SCH (12:34)
[2017-05-06] MEDS: DOCUSATE SODIUM 50 MG/SENNA 8.6 MG TAB PO SCH (12:34)
[2017-05-06] MEDS: POLYETHYLENE GLYCOL 17 GM PKG PO SCH (12:34)
[2017-05-06] MEDS: PRAVASTATIN SOD 40 MG TAB PO SCH (12:34)
[2017-05-06] MEDS: ALLOPURINOL 100 MG TAB PO SCH (12:34)
[2017-05-06] MEDS: FAMOTIDINE 20 MG TAB PO SCH (12:34)
[2017-05-06] MEDS: CYANOCOBALAMIN 1,000 MCG TAB PO SCH (12:35)
[2017-05-06] MEDS: BRIMONIDINE TARTRATE 0.2% OPHT SOLN 5 ML BTL EACH EYE SCH (12:35)
--- NOTE | 2017-05-06 12:36 | HHI.NPPN ---
Subjective History of Present Illness 82 year old with ARF, Lung Ca, Additional Remarks Patient alert, not in distress, eating well. Review of Systems General Constitutional: Fatigue Objective Data Data 05/06/17 05/07/17 19:00 07:00 Output Total 3000 ml Balance -3000 ml Hemodialysis 3000 ml Vital Signs Date Time Temp Pulse Resp B/P (MAP) Pulse Ox O2 Delivery O2 Flow Rate FiO2 05/06/17 08:09 97.9 75 20 132/82 (99) 98 05/06/17 08:00 Nasal Cannula 2.00 60 05/06/17 04:00 98.2 80 20 113/73 (86) 100 05/06/17 00:00 98.1 86 20 145/75 (98) 100 05/05/17 21:00 Nasal Cannula 2.00 05/05/17 20:00 98.3 88 20 144/81 (102) 100 05/05/17 16:08 99.0 87 20 142/84 (103) 99 -: 05/04/17 0701 05/05/17 1214 Physical Exam General Appearance: Well Developed, Well Nourished, Comfortable Neck Neck Exam: Neck Supple Pulmonary Resp Exam: Decreased Bases Cardiology CV Exam: Regular Gastrointestinal/Abdomen GI Exam: Soft, Non-Tender, Bowel Sounds Present Extremeties Extremities Exam: Trace Edema Neurologic Neuro Exam: Alert, Awake Psychiatric Psych Exam: Appropriate Responses Assessment/Plan Problem List: (1) Acute renal failure ICD Codes: N17.9 - Acute kidney failure, unspecified Plan: Patient he has started dialysis , Patient has been non oliguric. HD appears to have complication with needs long-term hemodialysis HD TTS continue with HD PermCath placed on dialysis, seen during dialysis UF 3 L tolerating it on 3 k bath (2) Hypertension ICD Codes: I10 - Essential (primary) hypertension Plan: Given a trial of fenoldopam (3) Pneumothorax after biopsy ICD Codes: J95.811 - Postprocedural pneumothorax Status: Acute Plan: Chest tube dislodged (4) Lung mass ICD Codes: R91.8 - Other nonspecific abnormal finding of lung field Status: Acute Plan: Pulmonary is following for squamous cell lung cancer Problem Qualifiers (1) Acute renal failure: Qualified Codes: N17.9 - Acute kidney failure, unspecified (2) Hypertension: Qualified Codes: I10 - Essential (primary) hypertension Eric Montana MD May 06, 2017 12:36
--- NOTE | 2017-05-06 16:30 | HHI.DS ---
Discharge Summary Admission Date Apr 21, 2017 at 01:01 Discharge Date: May 06, 2017 Admitting Diagnosis tension PTX, acute resp failure (1) Lung mass ICD Code: R91.8 - Other nonspecific abnormal finding of lung field Status: Acute (2) Squamous cell lung cancer ICD Code: C34.90 - Malignant neoplasm of unspecified part of unspecified bronchus or lung (3) Pneumothorax after biopsy ICD Code: J95.811 - Postprocedural pneumothorax Status: Acute (4) Acute renal failure ICD Code: N17.9 - Acute kidney failure, unspecified Procedures Vas-Cath placement. Lung biopsy. Brief History - From Admission History of Present Illness is a 82-year-old male with a past medical history of hypertension, hyperlipidemia, diabetes, COPD, prostate cancer, kidney stones, hypothyroidism, neuropathy, and recently diagnosed lung cancer. Patient has a history of COPD and had a routine chest x-ray done which had an incidental finding of lung nodule. He had a lung biopsy done previously, however not enough cells were collected to properly determine staging per son. Patient had a repeat lung biopsy on 04/17 however after the procedure was completed an x-ray done shortly after revealed a small left pneumothorax. IR was made aware, but held off on placing chest tube due to concern for blebs. He was admitted by the hospitalist service at that time and was subsequently discharged home. Patient uses 2-3 L O2 nasal cannula at home. Patient presented back to the ER on 04/20 night with worsening shortness of breath and a chest x-ray revealed a large left pneumothorax for which a 20 Vincentian chest tube was placed by ER physician with initial air leak with subsequently stopped with improvement in patient's respiratory status and O2 sats. He was weaned down from a nonrebreather to 6 L nasal cannula however postprocedure chest x-ray still shows residual pneumothorax on the right with chest tube tip appearing to be inside pleural cavity. Patient was accepted for admission by critical care medicine service and I evaluated the patient while he was in the ER. He states that his breathing has improved somewhat however he is still short of breath. He was on 6 L nasal cannula at the time of my evaluation and could speak in complete sentences. Patient also has a history of chronic left sided flank pain, son reports this is chronic and that has had workup to try and determine cause, but no clear answer has been identified. He also complains of numbness in his legs related to diabetic neuropathy. Review of Systems Constitutional: DENIES: Diaphoretic episodes, Fatigue Endocrine: DENIES: Heat/cold intolerance, Polydipsia Eyes: DENIES: Blurred vision, Diplopia Ears, nose, mouth, throat: DENIES: Tinnitus, Hearing loss Respiratory: COMPLAINS OF: Cough, Shortness of breath, DENIES: Snoring Cardiovascular: COMPLAINS OF: Lower Extremity Edema, DENIES: Chest pain Gastrointestinal: DENIES: Abdominal pain, Black stools Genitourinary: DENIES: Sexual dysfunction, Urinary frequency Integumentary: DENIES: Abnormal pigmentation, Nail changes Hematologic/lymphatic: DENIES: Bruising, Lymphadenopathy Immunologic/allergic: DENIES: Eczema, Urticaria Neurologic: DENIES: Abnormal gait, Headache, Localized weakness Psychiatric: DENIES: Anxiety, Confusion, Mood changes Except as stated in HPI: all other systems reviewed are Neg Past Family Social History Past Medical History Hypertension Hyperlipidemia Diabetes COPD, uses oxygen at home 2-3L Prostate cancer S/P radiation Kidney stones Hypothyroidism Diabetic neuropathy Lung cancer Past Surgical History Cataracta surgery Back surgery X5 with history of fusion Reported Medications Reported Meds & Active Scripts Active Reported Trazodone (Trazodone HCl) 50 Mg Tab 50 Mg PO HS Brimonidine Opth Drops (Brimonidine Tartrate) 0.2% Soln 1 Drop EACH EYE BID Allopurinol 100 Mg Tab 100 Mg PO DAILY Albuterol Neb (Albuterol Sulfate) 0.63 Mg/3 Ml Neb 0.5 Mg NEB QID NEB PRN Theophylline ER 12 HR (Theophylline) 300 Mg Tab 300 Mg PO TID Pravastatin 40 Mg Tab 40 Mg PO DAILY Vitamin B-12 (Cyanocobalamin) 1,000 Mcg Tab 1,000 Mcg PO DAILY Lisinopril-Hctz 10-12.5 Mg Tab 1 Tab PO DAILY Levothyroxine (Levothyroxine Sodium) 25 Mcg Tab 25 Mcg PO DAILY Latanoprost Opth Drops (Latanoprost) 0.005% Drops 1 Drop EACH EYE HS Refrigerate until opened. 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 (Unverified Allergy, Unknown, itching after arthrogram, 01/10/17) Active Ordered Medications Family History Mother and father with history of aneurysm Son with renal cancer Social History Tobacco use: quit >10 years ago, was a smoker for 45years per records Alcohol use: denies Illicit drug use: denies CBC/BMP: 05/04/17 0701 05/05/17 1214 Significant Findings Laboratory Tests Test 05/04/17 07:01 05/05/17 12:14 Red Blood Count 3.59 MIL/MM3 (4.50-5.90) Hemoglobin 10.3 GM/DL (13.0-17.0) Hematocrit 31.7 % (39.0-51.0) Monocytes (%) (Auto) 14.2 % (0.0-8.0) Monocytes # (Auto) 1.0 TH/MM3 (0-0.9) Blood Urea Nitrogen 35 MG/DL (7-18) 33 MG/DL (7-18) Creatinine 3.77 MG/DL (0.60-1.30) 3.08 MG/DL (0.60-1.30) Albumin 3.0 GM/DL (3.4-5.0) Estimat Glomerular Filtration Rate 19 ML/MIN (>89) 24 ML/MIN (>89) Random Glucose 111 MG/DL (74-106) Carbon Dioxide Level 33.3 MEQ/L (21.0-32.0) Imaging Last Impressions Catheter Placement X-Ray 05/04/17 0000 Signed Impressions: Service Date/Time: April 08:46 - CONCLUSION: Uncomplicated PermaCath placement as above. Lencho Fernandez MD Chest X-Ray 05/01/17 0000 Signed Impressions: Service Date/Time: Monday, May 01, 2017 11:59 - CONCLUSION: Improved aeration of the left lung base when compared to prior. The left hemidiaphragm is now fairly well delineated on one of the 2 views performed and no definite consolidative infiltrates seen. Darin Dimas MD Abdomen X-Ray 04/28/17 0000 Signed Impressions: Service Date/Time: Friday, April 28, 2017 16:01 - CONCLUSION: Scattered stool throughout the colon, nonspecific Negative for obstruction.. Yehuda Reyes MD FACR Renal Ultrasound 04/24/17 0000 Signed Impressions: Service Date/Time: Monday, April 24, 2017 10:26 - CONCLUSION: Unremarkable kidneys. Bladder totally decompressed. Darin Nuñez Jr., MD Chest CT 04/21/17 0000 Signed Impressions: Service Date/Time: Friday, April 21, 2017 01:50 - CONCLUSION: 1. The left-sided chest tube lies outside the thorax with the tip along the outer mid ribs. 2. Moderate to large left pneumothorax with mediastinal shift to the right. There is volume loss in the right hemithorax compared to the left however this is similar to on the prior CT. 3. Spiculated mass in the left upper lobe with underlying emphysema and scarring. 4. Small left effusion. These findings were called to Dr. Tucker in the emergency room immediately after the study was performed. Maxx Melchor MD Brain MRI 04/21/17 0000 Signed Impressions: Service Date/Time: Friday, April 21, 2017 20:29 - CONCLUSION: 1. Moderate severity atrophy. 2. No evidence of metastatic disease to the brain. Darin Dimas MD PE at Discharge GENERAL: sitting up in bed. Appears comfortable. SKIN: Warm and dry. HEAD: Normocephalic. EYES: No scleral icterus. No injection or drainage. NECK: Supple, trachea midline. No JVD CARDIOVASCULAR: Regular rate and rhythm without murmurs, gallops, or rubs. RESPIRATORY: Breath sounds equal bilaterally. No accessory muscle use. GASTROINTESTINAL: Abdomen soft, non-tender, nondistended. MUSCULOSKELETAL: No cyanosis, or edema. BACK: Nontender without obvious deformity. No CVA tenderness. Pt update on day of discharge Patient says he is feeling all right. Denies any chest pain. Reports shortness of breath is continually improving. Hospital Course Intermittent Delirium Glaucoma Monitor neuro status. Avoid sedatives MRI brain 04/21 - no evidence of metastatic disease, but moderate to severe atrophy Continue Brimonidine 0.2% 1 drop each twice a day and latanoprost 0.005% 1 drop each eye at night No clinical evidence of delirium today 04/29 Trazodone 50 mill grams daily/home medication, discontinued discussion with family patient has ordered at home but does not take it As needed hydrocodone/acetaminophen 5/325 every 6 hours when necessary Delirium resolved. CV: Hypertension Coronary artery disease Dyslipidemia Monitor HR and BP keep MAP>65mmHg On Hydralazine 50mg Q8-increase to 100 mg po q8h along with metoprolol 50 mg every 6 hours Holding lisinopril/HCTZ 03/09.5 one tablet daily in light of acute injury On pravastatin 40 mg by mouth daily/home medication for dyslipidemia Pulm: Acute on chronic respiratory failure Recurrent Left pneumothorax following lung biopsy status post left-sided chest tube placement ( dislodged x2) COPD with possible COPD exacerbation Continue with oxygen keep sat >92% Albuterol/ipratropium aerosols 4 times a day with albuterol aerosols every 2 hours when necessary dyspnea Prednisone 20mg daily currently on hold 20Fr CT placed 04/23 for recurrent PTX disoldged and removed 04/26/17, no PTX Pulm is following- Dr. Youssef. Holding Theophylline 300mg TID ( Level 24.8 down to 10.9) GI/liver: Constipation Nausea On PO diet Famotidine for GI prophylaxis Docusate sodium/senna 1 tablet twice a day, MiraLAX daily and lactulose daily for GI prophylaxis. Glycerin suppositories and sepsis enema when necessary. Okay to manually disimpact. 04/28 Zofran 4 mg every 6 hours when necessary Renal/: Acute kidney injury Monitor renal function Will require hemodialysis 04/29 -Vas-Cath placement by IR Dr. Mondragon 04/28. -2.2 L Renal US unremarkable. Avoid nephrotoxic drugs 05/04 sp permacath placement. Dialysis as per nephrology. ID: Left lower lobe pneumonia question raul Monitor for signs of infections ( Fever, WBC), CXR persistent left lower lobe infiltrate low-grade fevers started on cefepime today 04/27/17 Currently on cefepime 1 g every 24 hours 05/01 Repeat CXR does not show infiltrates. WBC normal and patient afebrile. Will DC Cefepime and observe off antibiotics. 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 Discharge Planning DC home with home health once outpatient dialysis set up. Pt Condition on Discharge: Stable Discharge Disposition: Disch w/ Home Health Serv Discharge Time: > 30 minutes Discharge Instructions DIET: Follow Instructions for: Diabetic Diet Activities you can perform: See Additionl Instruction Other Activity Instructions: as per PT instructions out of bed with assistance only Follow up Referrals: Appointment for Follow Up - 2-3 Days with Madi Brink MD Oncology - 1 Week with Fay Valerio MD PCP Follow-up - 2 Weeks New Medications: Hydralazine (Hydralazine) 100 Mg Tab 100 MG PO Q8HR for Blood Pressure Management, #31 TAB Take with meals Metoprolol Tartrate (Lopressor) 50 Mg Tab 50 MG PO Q12HR for Blood Pressure Management, #62 TAB Continued Medications: Albuterol 18 GM Inh (Ventolin Hfa 18 GM Inh) 90 Mcg/Act Aer 1 PUFF INH Q12HR PRN for SHORTNESS OF BREATH, #1 INHALER 0 Refills Albuterol Neb (Albuterol Neb) 0.63 Mg/3 Ml Neb 0.5 MG NEB QID NEB PRN for SHORTNESS OF BREATH, #125 NEBULE 0 Refills Allopurinol (Allopurinol) 100 Mg Tab 100 MG PO DAILY for Gout, #30 TAB 0 Refills Brimonidine Opth Drops (Brimonidine Opth Drops) 0.2% Soln 1 DROP EACH EYE BID for Intraocular pressure, #1 BOTTLE 0 Refills Cyanocobalamin (Vitamin B-12) 1,000 Mcg Tab 1000 MCG PO DAILY for Nutritional Supplement, #1 BOTTLE 0 Refills Formoterol Neb (Perforomist Neb) 20 Mcg/2 Ml Neb 1 NEBULE INH TID for COPD, #60 NEBULE 0 Refills Glipizide (Glipizide) 5 Mg Tab 5 MG PO BIDAC for Blood Sugar Management, #60 TAB 0 Refills Take 30 minutes before a meal Latanoprost Opth Drops (Latanoprost Opth Drops) 0.005% Drops 1 DROP EACH EYE HS for Glaucoma, #2.5 ML 0 Refills Refrigerate until opened. Levothyroxine (Levothyroxine) 25 Mcg Tab 25 MCG PO DAILY for Thyroid, #30 TAB 0 Refills Lisinopril-Hctz (Lisinopril-Hctz) 10-12.5 Mg Tab 1 TAB PO DAILY for Blood Pressure Management, #30 TAB 0 Refills Mometasone 30 Act Inh (Asmanex 30 Act Twisthaler) 220 Mcg/Act Inh 2 PUFF INH BID for Asthma Management, #1 INHALER 0 Refills Pravastatin (Pravastatin) 40 Mg Tab 40 MG PO DAILY for Cholesterol Management, #30 TAB 0 Refills Theophylline ER 12 HR (Theophylline ER 12 HR) 300 Mg Tab 300 MG PO TID, #60 TAB 0 Refills Trazodone (Trazodone) 50 Mg Tab 50 MG PO HS for Control Depression, #30 TAB 0 Refills Caesar Ponce MD May 06, 2017 16:30
== END 2017-05-06 14:54 | disposition home health service (06) | DRG 199 ==
LOC: NEPE 22:52 → NEDA 04-21 01:01 → HIMN 04-21 02:00 → N04B 04-30 21:22
PROVIDERS: ADMIT Internal Medicine; ATTEND Internal Medicine
PROC: 5A09357 Assistance with Respiratory Ventilation, Less than 24 Consecutive Hours, Continuous Positive Airway Pressure (ICD-10-PCS; principal; 2017-04-21)
PROC: 0W9B30Z Drainage of Left Pleural Cavity with Drainage Device, Percutaneous Approach (ICD-10-PCS; 2017-04-21)
PROC: 0W9B30Z Drainage of Left Pleural Cavity with Drainage Device, Percutaneous Approach (ICD-10-PCS; 2017-04-21)
PROC: 05HM33Z Insertion of Infusion Device into Right Internal Jugular Vein, Percutaneous Approach (ICD-10-PCS; 2017-04-28)
PROC: 5A1D70Z Performance of Urinary Filtration, Intermittent, Less than 6 Hours Per Day (ICD-10-PCS; 2017-04-29)
PROC: 05HM33Z Insertion of Infusion Device into Right Internal Jugular Vein, Percutaneous Approach (ICD-10-PCS; 2017-05-04)
DX: J95.811 Postprocedural pneumothorax (principal); J96.21 Acute and chronic respiratory failure with hypoxia; N17.9 Acute kidney failure, unspecified; J18.9 Pneumonia, unspecified organism; J44.0 Chronic obstructive pulmonary disease with (acute) lower respiratory infection; C34.12 Malignant neoplasm of upper lobe, left bronchus or lung; I95.9 Hypotension, unspecified; E11.22 Type 2 diabetes mellitus with diabetic chronic kidney disease; E11.40 Type 2 diabetes mellitus with diabetic neuropathy, unspecified; I12.9 Hypertensive chronic kidney disease with stage 1 through stage 4 chronic kidney disease, or unspecified chronic kidney disease; D64.9 Anemia, unspecified; Z99.81 Dependence on supplemental oxygen; E78.5 Hyperlipidemia, unspecified; E03.9 Hypothyroidism, unspecified; N18.9 Chronic kidney disease, unspecified; G89.29 Other chronic pain; I25.10 Atherosclerotic heart disease of native coronary artery without angina pectoris; H91.90 Unspecified hearing loss, unspecified ear; R10.9 Unspecified abdominal pain; H40.9 Unspecified glaucoma; K59.00 Constipation, unspecified; R11.0 Nausea; M10.9 Gout, unspecified; R41.0 Disorientation, unspecified; R45.1 Restlessness and agitation; Z99.2 Dependence on renal dialysis; Z86.14 Personal history of Methicillin resistant Staphylococcus aureus infection; Z79.84 Long term (current) use of oral hypoglycemic drugs; Z92.3 Personal history of irradiation; Z85.46 Personal history of malignant neoplasm of prostate; Z87.891 Personal history of nicotine dependence
CPT/HCPCS: 32551; 36556; 36558; 36600; 70553; 71010; 71250; 74000; 76775; 76937; 77001; 80048; 80053; 80069; 80074; 80198; 81001; 82550; 82552; 82570; 82805; 82948; 83036; 83735; 84100; 84165; 84300; 84439; 84443; 84484; 85025; 85610; 86021; 86038; 86160; 87040; 87086; 87641; 90935; 93005; 94150; 94640; 94664; 94667; 94668; 96374; 96375; 99152; 99153; A9579; C1750; C1752; C1769; J0360; J0690; J0692; J1580; J1630; J1644; J1815; J1940; J2060; J2250; J2270; J2405; J2920; J2930; J3010; J3370; J3475; J7030; J7050; J7512; P9047; Q4081

== ENCOUNTER 2017-06-03 10:22 | Inpatient (IN) | payer OTHER, MEDICARE ==
[~2017-06-03] VITALS: Ht 182.9 cm; Wt 103.0 kg
[~2017-06-03 10:22] MED LIST changes: +HYDR-3801 PO; +METO-309 PO
[2017-06-03] MEDS ORDERED: EPINEPHrine (1:1000) INJ 2 MG in DEXTROSE 5% IN WATER INJ 250 ML IV PRN ×2 (10:45)
[2017-06-03 10:58] VITALS: O2SAT 0
[2017-06-03 11:03] LABS: AUTOMATED NEUTROPHIL # 10.2 TH/MM3 (1.8-7.7); BASOPHIL % 0.2 % (0.0-2.0); EOSINOPHIL # 0.1 TH/MM3 (0-0.4); EOSINOPHIL % 0.4 % (0.0-4.0); HEMATOCRIT 40.2 % (39.0-51.0); HEMOGLOBIN 12.2 GM/DL (13.0-17.0); LYMPH % 24.7 % (9.0-44.0); LYMPHOCYTE # 3.8 TH/MM3 (1.0-4.8); MEAN CORPUSCULAR HEMOGLOBIN 28.2 PG (27.0-34.0); MEAN CORPUSCULAR HGB CONC 30.3 % (32.0-36.0); MEAN PLATELET VOLUME 8.9 FL (7.0-11.0); MONO % 7.4 % (0.0-8.0); MONOCYTE # 1.1 TH/MM3 (0-0.9); NEUT % 67.3 % (16.0-70.0); PLATELET COUNT 107 TH/MM3 (150-450); RED BLOOD COUNT 4.32 MIL/MM3 (4.50-5.90); RED CELL DISTRIBUTION WIDTH 16.3 % (11.6-17.2); WHITE BLOOD COUNT 15.2 TH/MM3 (4.0-11.0)
[2017-06-03 11:13] LABS: INTERNATIONAL NORMALIZED RATIO 1.9 RATIO; PROTHROMBIN TIME - PATIENT 18.8 SEC (9.8-11.6)
[2017-06-03 11:15] VITALS: BP 63/47
--- NOTE | 2017-06-03 11:23 | RADRPT ---
EXAM DATE/TIME: 06/03/2017 11:14 [facility] COMPARISON: CHEST SINGLE AP, May 01, 2017, 11:59. INDICATIONS : Evaluate ET tube placement. MEDICAL HISTORY : Diabetes mellitus type II. Hypercholesterolemia. Hypertension. Chronic obstructive pulmonary di sease. Prostate cancer. Renal disease. Thyroid disease. SURGICAL HISTORY : None. ENCOUNTER: Initial ACUITY: 1 day PAIN SCORE: Non-responsive. LOCATION: Bilateral chest FINDINGS: The endotracheal tube has its tip 4 cm above the be. Right internal jugular tunneled dialysis cat heter has its tips in the right atrium. No pneumothorax is noted. The pulmonary vascular and is unrem arkable. The lungs are clear. The heart is mildly prominent. Degenerative changes are noted throughou t the thoracic spine. CONCLUSION: 1. Endotracheal tube in good position 4 cm above the be. 2. Mild cardiomegaly. 3. No acute focal pulmonary infiltrate or pulmonary vascular congestion. Howard Caldera MD on June 03, 2017 at 11:19 Board Certified Radiologist. This report was verified electronically.
[2017-06-03 11:26] VITALS: BP 63/47; PULSE 59
[2017-06-03 11:31] LABS: ALBUMIN 2.4 GM/DL (3.4-5.0); ALKALINE PHOSPHATASE 65 U/L (45-117); ALT (GPT) 863 U/L (12-78); AST (GOT) 1687 U/L (15-37); BLOOD UREA NITROGEN 56 MG/DL (7-18); CALCIUM 11.5 MG/DL (8.5-10.1); CHLORIDE 102 MEQ/L (98-107); GLOMERULAR FILTRATION RATE 5 ML/MIN (>89); GLUCOSE,RANDOM 99 MG/DL (74-106); MAGNESIUM 3.8 MG/DL (1.5-2.5); PHOSPHORUS 13.4 MG/DL (2.5-4.9); SODIUM (NA) 152 MEQ/L (136-145); TOTAL BILIRUBIN ADULT 0.4 MG/DL (0.2-1.0); TOTAL PROTEIN 6.2 GM/DL (6.4-8.2); TROPONIN I 0.34 NG/ML (0.02-0.05)
[2017-06-03 11:34] LABS: CREATININE 11.99 MG/DL (0.60-1.30)
[2017-06-03 11:41] VITALS: PULSE 62
[2017-06-03 11:43] LABS: BANDS 6 % (0-6); CORRECTED NUCLEATED RBC 11 /100 WBC (0-0); LYMPHOCYTES 15 % (9-44); MONOCYTES 6 % (0-8); NUCLEATED RED BLOOD CELL 11 (0-0); POLYS (SEG NEUTROPHILS) 73 % (16-70)
--- NOTE | 2017-06-03 11:48 | PD ---
HPI Chief Complaint: Code Blue Time Seen by Provider: 10:43 Travel History International Travel<30 days: No Contact w/Intl Traveler<30days: No Traveled to known affect area: No History of Present Illness HPI 82-year-old male had where he was helped to the bathroom and when the family went to check on him he was unresponsive. When the ambulance team arrived on scene he was a GCS of 3. In route he went into PEA and CPR was initiated. He was intubated and given epinephrine. The code started approximately 2 minutes prior to arrival again as they had only briefly had return of spontaneous circulation. Patient here is actively coding and history is otherwise limited. PFSH Past Medical History Narrative Medical By records Arthritis: No Heart Rhythm Problems: No Cancer: Yes Cardiac Catheterization: No Cardiovascular Problems: Yes High Cholesterol: Yes Congestive Heart Failure: No COPD: Yes (O2 DEPENDENT) Diabetes: Yes Patient Takes Glucophage: No Diminished Hearing: Yes Endocrine: Yes Genitourinary: Yes Hepatitis: No Hiatal Hernia: No Hypertension: Yes Immune Disorder: No Musculoskeletal: No Neurologic: No Psychiatric: No Reproductive: No Respiratory: Yes Radiation Therapy: Yes (PROSTATE CA) Thyroid Disease: Yes Past Surgical History Narrative Surgical By records Abdominal Surgery: Yes (GALLBLADDER REMOVAL) AICD: No Body Medical Devices: JUAN LENS IMPLANTS/CATARACTS Cardiac Surgery: No Coronary Artery Bypass Graft: No Ear Surgery: No Endocrine Surgery: No Eye Surgery: Yes (JUAN CATARACT REMOVAL) Genitourinary Surgery: No Gynecologic Surgery: No Joint Replacement: No Neurologic Surgery: No Oral Surgery: No Pacemaker: No Thoracic Surgery: Yes (LUNG BX) Other Surgery: Yes Social History Alcohol Use: No Tobacco Use: No Substance Use: No Allergies-Medications (Allergen,Severity, Reaction): Coded Allergies: diatrizoate meglumine (Unverified Allergy, Unknown, itching after arthrogram, 01/10/17) Uncoded Allergies: Morphi (Adverse Reaction, Severe, 04/26/17) Severe Delirium Reported Meds & Prescriptions Reported Meds & Active Scripts Active Lopressor (Metoprolol Tartrate) 50 Mg Tab 50 Mg PO Q12HR Hydralazine (Hydralazine HCl) 100 Mg Tab 100 Mg PO Q8HR Take with meals Reported Trazodone (Trazodone HCl) 50 Mg Tab 50 Mg PO HS Brimonidine Opth Drops (Brimonidine Tartrate) 0.2% Soln 1 Drop EACH EYE BID Allopurinol 100 Mg Tab 100 Mg PO DAILY Albuterol Neb (Albuterol Sulfate) 0.63 Mg/3 Ml Neb 0.5 Mg NEB QID NEB PRN Theophylline ER 12 HR (Theophylline) 300 Mg Tab 300 Mg PO TID Pravastatin 40 Mg Tab 40 Mg PO DAILY Vitamin B-12 (Cyanocobalamin) 1,000 Mcg Tab 1,000 Mcg PO DAILY Lisinopril-Hctz 10-12.5 Mg Tab 1 Tab PO DAILY Levothyroxine (Levothyroxine Sodium) 25 Mcg Tab 25 Mcg PO DAILY Latanoprost Opth Drops (Latanoprost) 0.005% Drops 1 Drop EACH EYE HS Refrigerate until opened. Glipizide 5 Mg Tab 5 Mg PO BIDAC Take 30 minutes before a meal Perforomist Neb (Formoterol Fumarate) 20 Mcg/2 Ml Neb 1 Nebule INH TID Asmanex 30 Act Twisthaler (Mometasone 30 Act Inh) 220 Mcg/Act Inh 2 Puff INH BID Ventolin Hfa 18 GM Inh (Albuterol Sulfate) 90 Mcg/Act Aer 1 Puff INH Q12HR PRN Review of Systems ROS Limitations: Clinical Condition Physical Exam Exam Limitations: Clinical Condition Narrative General: CPR in progress, focused exam performed Skin: No rash Eyes: Pupils equal Neck: Trachea midline Cardiovascular: CPR in progress Respiratory: Intubated, decreased breath sounds bilaterally Abdomen: nondistended Neuro: Unresponsive Data Data Last Documented VS Vital Signs Date Time Temp Pulse Resp B/P (MAP) Pulse Ox O2 Delivery O2 Flow Rate FiO2 06/03/17 11:26 59 63/47 (52) Ventilator 06/03/17 11:15 15.00 06/03/17 10:58 0 60 Orders Orders Electrocardiogram (06/03/17 10:44) Complete Blood Count With Diff (06/03/17 10:44) Comprehensive Metabolic Panel (06/03/17 10:44) Prothrombin Time / Inr (Pt) (06/03/17 10:44) Act Partial Throm Time (Ptt) (06/03/17 10:44) Lactic Acid Sepsis Protocol (06/03/17 10:44) Magnesium (Mg) (06/03/17 10:44) Phosphorus (Po4) (06/03/17 10:44) Ckmb (Isoenzyme) Profile (06/03/17 10:44) Troponin I (06/03/17 10:44) Blood Culture (06/03/17 10:44) Chest, Single Ap (06/03/17 10:44) Blood Glucose (06/03/17 10:44) Ecg Monitoring (06/03/17 10:44) Iv Access Insert/Monitor (06/03/17 10:44) Oximetry (06/03/17 10:44) Oxygen Administration (06/03/17 10:44) I-Stat Profile (06/03/17 10:44) I-Stat Creatinine (06/03/17 10:44) Epinephrine (1:1000) Inj (Adrenalin (1:1 (06/03/17 10:45) Arterial Blood Gas (Abg) (06/03/17 10:40) Code Status (06/03/17 11:07) Admit Order (Ed Use Only) (06/03/17 11:27) Ct Brain W/O Iv Contrast(Rout) (06/03/17 ) CKMB (06/03/17 10:14) CKMB% (06/03/17 10:14) Labs Laboratory Tests Test 06/03/17 10:14 06/03/17 10:40 White Blood Count 15.2 TH/MM3 Red Blood Count 4.32 MIL/MM3 Hemoglobin 12.2 GM/DL Bedside Hemoglobin 12.6 G/DL Hematocrit 40.2 % Bedside Hematocrit 37.0 % Mean Corpuscular Volume 93.0 FL Mean Corpuscular Hemoglobin 28.2 PG Mean Corpuscular Hemoglobin Concent 30.3 % Red Cell Distribution Width 16.3 % Platelet Count 107 TH/MM3 Mean Platelet Volume 8.9 FL Neutrophils (%) (Auto) 67.3 % Lymphocytes (%) (Auto) 24.7 % Monocytes (%) (Auto) 7.4 % Eosinophils (%) (Auto) 0.4 % Basophils (%) (Auto) 0.2 % Neutrophils # (Auto) 10.2 TH/MM3 Lymphocytes # (Auto) 3.8 TH/MM3 Monocytes # (Auto) 1.1 TH/MM3 Eosinophils # (Auto) 0.1 TH/MM3 Basophils # (Auto) 0.0 TH/MM3 CBC Comment AUTO DIFF Differential Total Cells Counted 100 Neutrophils % (Manual) 73 % Band Neutrophils % 6 % Lymphocytes % 15 % Monocytes % 6 % Neutrophils # (Manual) 12.0 TH/MM3 Nucleated Red Blood Cells 11 /100 WBC Differential Comment FINAL DIFF MANUAL Platelet Estimate LOW Platelet Morphology Comment NORMAL Prothrombin Time 18.8 SEC Prothromb Time International Ratio 1.9 RATIO Activated Partial Thromboplast Time 35.4 SEC Bedside Sodium 150 MMOL/L Blood Urea Nitrogen 56 MG/DL Creatinine 11.99 MG/DL Random Glucose 99 MG/DL Total Protein 6.2 GM/DL Albumin 2.4 GM/DL Calcium Level 11.5 MG/DL Phosphorus Level 13.4 MG/DL Magnesium Level 3.8 MG/DL Alkaline Phosphatase 65 U/L Aspartate Amino Transf (AST/SGOT) 1687 U/L Alanine Aminotransferase (ALT/SGPT) 863 U/L Total Bilirubin 0.4 MG/DL Sodium Level 152 MEQ/L Potassium Level 4.9 MEQ/L Chloride Level 102 MEQ/L Carbon Dioxide Level 21.0 MEQ/L Bedside Potassium 4.8 MMOL/L Bedside Chloride 103 MMOL/L Anion Gap 29 MEQ/L Bedside Blood Urea Nitrogen 54 MG/DL Bedside Creatinine 10.0 MG/DL Estimat Glomerular Filtration Rate 5 ML/MIN Bedside Glucose 95 MG/DL Total Creatine Kinase 250 U/L Creatine Kinase MB 5.1 NG/ML Troponin I 0.34 NG/ML Blood Gas Puncture Site RT FEMORAL Blood Gas Patient Temperature 98.6 Blood Gas HCO3 16 mmol/L Blood Gas Base Excess -12.4 mmol/L Blood Gas Oxygen Saturation 98 % Arterial Blood pH 7.09 Arterial Blood Partial Pressure CO2 55 mmHg Arterial Blood Partial Pressure O2 345 mmHG Arterial Blood Oxygen Content 17.8 Vol % Arterial Blood Carboxyhemoglobin 0.0 % Arterial Blood Methemoglobin 0.8 % Blood Gas Hemoglobin 12.3 G/DL Oxygen Delivery Device BiPAP Blood Gas Liter Flow 15 L/M Blood Gas Ventilator Setting AMBU Blood Gas Inspired Oxygen 100 % [facility] Medical Decision Making Medical Screen Exam Complete: Yes Emergency Medical Condition: Yes Medical Record Reviewed: Yes (past history confirm, recent visits reviewed,) Interpretation(s) CBC & BMP Diagram 06/03/17 10:14 Total Protein 6.2 L, Albumin 2.4 L, Calcium Level 11.5 H, Phosphorus Level 13.4 H, Magnesium Level 3.8 H, Alkaline Phosphatase 65, Aspartate Amino Transf (AST/ SGOT) 1687 H, Alanine Aminotransferase (ALT/SGPT) 863 H, Total Bilirubin 0.4 Last 24 hours Impressions Chest X-Ray 06/03/17 1044 Signed Impressions: Service Date/Time: Saturday, June 03, 2017 11:14 - CONCLUSION: 1. Endotracheal tube in good position 4 cm above the be. 2. Mild cardiomegaly. 3. No acute focal pulmonary infiltrate or pulmonary vascular congestion. Howard Caldera MD EKG shows idioventricular rhythm with concern for possible STEMI-sent to performance improvement analyst who will come and see patient Differential Diagnosis IL, hyperkalemia, intercranial bleed, PE, pneumothorax Narrative Course Patient was coded for approximately 22 minutes here per nursing staff. He was defibrillated about 3 times and given epinephrine, bicarbonate, calcium multiple times as well as a dose of amiodarone given intermittent ventricular tachycardia as well as PEA. He regained pulse and had blood pressure. EKG was obtained. I stats reviewed. Given EKG discuss with cardiology. Not candidate for intervention. Talked with and she states if patient codes again to not do compressions, defibrillate, or get medications. She wants tube to stay in. 1145 patient now maxed on epi drip, called again and states to not add other medications at this point and keep alternate code with intubation only, understands critical condition Patient now unable to obtain blood pressure and Dr. Howard was updated, bedside ultrasound shows very small cardiac squeeze shortly after this at about 1245 dr howard came and saw patient and discussed with and will sign withdrawal of care after confirming wishes with over the phone, niece at bedside which was also updated multiple times At 1305 patient went into bradycardic PEA with epi drip turned off, ET tube was withdrawn and at 1308 time of was called Critical Care Narrative Aggregate critical care time was 125 minutes. Time to perform other separately billable procedures was not included in the critical care time. My time did not include minutes spent treating any other patients simultaneously or on activities that did not directly contribute to the patient's treatment. The services I provided to this patient were to treat and/or prevent clinically significant deterioration that could result in: Respiratory failure, cardiopulmonary arrest, I provided critical care services requiring my management, as noted below: Chart data review, documentation time, medication orders and management, vital sign assessments/reviewing monitor data, ordering and reviewing lab tests, ordering and interpreting/reviewing x-rays and diagnostic studies, care of the patient and discussion of the patient with the admitting physicians. Physician Communication Physician Communication Dr. Howard agrees to admission Dr. Howard updated and will come see patient Dr. Howard came and saw patient and after discussion with and confirmed, patient will have withdrawal of care in the ER Diagnosis Primary Impression: PEA (Pulseless electrical activity) Additional Impressions: Ventricular tachycardia Respiratory failure Qualified Codes: J96.00 - Acute respiratory failure, unspecified whether with hypoxia or hypercapnia Cardiopulmonary arrest Admitting Information Admitting Physician Requests: Admit Layne Hernandez MD Jun 03, 2017 11:48
[2017-06-03 12:56] VITALS: BP 45/33; PULSE 41
[2017-06-03] MEDS ORDERED: ACETAMINOPHEN 650 MG SUPP RECTAL PRN (13:00)
[2017-06-03] MEDS ORDERED: MORPHINE SULFATE 2 MG/ML INJ IV PUSH ONE (13:00)
[2017-06-03] MEDS ORDERED: LORazepam 2 MG/ML VIAL IV PUSH PRN ×3 (13:00)
[2017-06-03] MEDS ORDERED: LORazepam 2 MG/ML VIAL IV PUSH ONE ×2 (13:00)
[2017-06-03] MEDS ORDERED: HYOSCYAMINE 0.5 MG/ML AMP IV PUSH PRN (13:00)
[2017-06-03 13:05] VITALS: O2SAT 0
--- NOTE | 2017-06-03 13:05 | HHI.CCPN ---
History - Height: 182.88 cm Weight: 103 kg Allergies: Coded Allergies: diatrizoate meglumine (Unverified Allergy, Unknown, itching after arthrogram, 01/10/17) Uncoded Allergies: Morphi (Adverse Reaction, Severe, 04/26/17) Severe Delirium Major 24 Hour Events I was called initially for a admission of this patient to ICU. The patient is status post cardiac arrest and was found down in PEA arrest approximately 3 minutes prior to EMS arrival per report. Upon admission to the ED, per report, the patient was still in PEA arrest subsequently V. tach, ACLS protocol was instituted. The patient had a resultant idioventricular rhythm, and epinephrine infusion was instituted. Dr. Hernandez managing the patient, contacted the patient's Mrs. Genesis Arriaza, and discussed the criticality of the patient. Ms. Arriaza the spouse (POA) decided to make him alternate CODE STATUS, intubation only, no escalation of care, no CPR, no defibrillation, no additional medications. The patient had already been placed on epinephrine infusion and was requested to continue the infusion by the POA. Critical care medicine was consulted, and prior to my arrival in the ED, I was notified by Dr. Hernandez that the patient had no obtainable blood pressure, and epinephrine infusion had been placed on max dosing. Patient was still noted not to have a blood pressure with Epi at maximum dosing. Upon my arrival to the ED, no palpable pulses were unobtainable , no cardiac heart sounds were audible on auscultation. Informal TTE was performed by Dr. Hernandez, revealing minimal contractility of the heart. Ms. Arriaza was contacted telephonically again by myself and Dr. Hernandez and made aware of the situation. Decision made by Ms. Arriaza POA to institute ventilator / compassionate withdrawal and comfort care measures in the ED. This discussion was witnessed by as well. Family members at the bedside were made aware of the patient's medical status and the decision for compassionate care measures to be instituted I Mrs. Arriaza.Exhibits B&C were completed by myself and Dr. Hernandez. Comfort care measures were instituted per protocol. Deepa Arenas Epi 10 mcgs/min Exam Patient Data - Vital Signs Date Time Temp Pulse Resp B/P (MAP) Pulse Ox O2 Delivery O2 Flow Rate FiO2 06/03/17 11:41 62 06/03/17 11:26 59 63/47 (52) Ventilator 06/03/17 11:15 63/47 (52) Ventilator 06/03/17 11:15 Bag Valve 15.00 06/03/17 11:15 Ventilator 06/03/17 10:58 0 60 Constitutional General appearance: acutely ill Nutritional status: normal Respiratory Respiratory effort: other Chest appearance: Normal Ausculation: Bilateral: Normal Percussion: Bilateral: Dull Cardiovascular Rhythm: idioventricular rhythm Heart sounds: ABNORMAL: S1, S2 (no heart sounds audible stethoscope) Gastrointestinal Abdomen description: Normal Bowel sounds: LUQ: Absent, LLQ: Absent, RUQ: Absent, RLQ: Absent Neurologic Cranial nerves: Not tested: CN I: Olfactory, CN II: Optic, CN III: Oculomotor, CN IV: Trochlear, CN V: Trigeminal, CN : Abducent, CN VII: Facial, CN VIII: Acoustic, CN IX: Glossopharyngeal, CN X: Vagus, CN XI: Accessory, CN XII: Hypoglossal Neurologic Remarks Unresponsive to deep painful stimuli. Pupils fixed. No lid reflex no gag reflex no corneal reflex Results CBC/BMP: 06/03/17 1014 06/03/17 1014 Assessment/Plan Assessment/Plan Diagnosis: (1) Cardiogenic shock ICD Code: R57.0 - Cardiogenic shock Status: Acute (2) PEA (Pulseless electrical activity) ICD Code: I46.9 - Cardiac arrest, cause unspecified Status: Acute (3) Cardiac arrest ICD Code: I46.9 - Cardiac arrest, cause unspecified Status: Acute Time Spend with Patient Critical Care Minutes: 30 Arely Forrest MD Jun 03, 2017 13:05
[2017-06-03] MEDS ORDERED: MORPHINE SULFATE 2 MG/ML INJ IV PUSH PRN (13:15)
[2017-06-03] MEDS ORDERED: HYOSCYAMINE 0.5 MG/ML AMP IV PUSH ONE (13:15)
[2017-06-03] MEDS ORDERED: HYDROmorphone HCL PF 2 MG/ML VIAL IV PUSH PRN ×2 (13:45)
[2017-06-03] MEDS ORDERED: HYDROmorphone HCL PF 2 MG/ML VIAL IV PUSH SCH (16:00)
[2017-06-03] MEDS ORDERED: LORazepam 2 MG/ML VIAL IV PUSH SCH (16:00)
[2017-06-03] MEDS ORDERED: MORPHINE SULFATE 2 MG/ML INJ IV PUSH SCH (16:00)
--- NOTE | 2017-06-04 14:12 | EKG ---
Date Performed: 06/03/2017 Time Performed: 10:45:05 PTAGE: 82 years EKG: There is a bradycardia rhythm that is slightly variable, but without P-waves. This may be a junctional bradycardia. Right bundle branch block pattern. There is ST elevation inferiorly, and pos sibly anterolaterally suggesting acute myocardial infarction. Compared to PREVIOUS TRACING , previous rhythm was Sinus rhythm and these changes are new. Clinical correlation and follow-up tracing strongly recommended. PREVIOUS TRACIN04/20/2017 23.29.03 DOCTOR: Rubin Vega Interpretating Date/Time 06/04/2017 14:11:30
--- NOTE | 2017-06-04 14:17 | EKG ---
Date Performed: 06/03/2017 Time Performed: 11:19:14 PTAGE: 82 years EKG: Sinus rhythm WITH FIRST DEGREE AV BLOCK RIGHT BUNDLE BRANCH BLOCK ST ELEVATION INFERIORLY SUGGESTING ACUTE INFERI OR INJURY Compared to PREVIOUS TRACING , rhythm has changed from what appears to be a junctional bradycardia to sinus rhythm with first degree AV block. The ST elevation seen inferiorly is less prominent, however , these tracings strongly suggest acute inferior wall myocardial infarction. Clinical correlation and follow up tracing strongly recommended. PREVIOUS TRACIN06/03/2017 10.45.05 DOCTOR: Rubin Vega Interpretating Date/Time 06/04/2017 14:15:57
== END 2017-06-03 13:08 | disposition expired | DRG 296 ==
LOC: NEPE 10:22 → NEDA 11:29
PROVIDERS: ADMIT Anesthesiology; ATTEND Anesthesiology
PROC: 5A1935Z Respiratory Ventilation, Less than 24 Consecutive Hours (ICD-10-PCS; principal; 2017-06-03)
PROC: 5A12012 Performance of Cardiac Output, Single, Manual (ICD-10-PCS; 2017-06-03)
PROC: 5A2204Z Restoration of Cardiac Rhythm, Single (ICD-10-PCS; 2017-06-03)
DX: I46.9 Cardiac arrest, cause unspecified (principal); J96.90 Respiratory failure, unspecified, unspecified whether with hypoxia or hypercapnia; J44.9 Chronic obstructive pulmonary disease, unspecified; I47.2 Ventricular tachycardia; Z99.81 Dependence on supplemental oxygen; E11.9 Type 2 diabetes mellitus without complications; E78.00 Pure hypercholesterolemia, unspecified; H91.90 Unspecified hearing loss, unspecified ear; I10 Essential (primary) hypertension; E07.9 Disorder of thyroid, unspecified; R40.2431 Glasgow coma scale score 3-8, in the field [EMT or ambulance]; Z79.84 Long term (current) use of oral hypoglycemic drugs; Z85.46 Personal history of malignant neoplasm of prostate; Z92.3 Personal history of irradiation
CPT/HCPCS: 36600; 71045; 80053; 82435; 82550; 82552; 82565; 82805; 82947; 83735; 84100; 84132; 84295; 84484; 84520; 85007; 85027; 85610; 85730; 92950; 93005; 99292